=== PATIENT | male | born 1940 | race Caucasian/White ===

== ENCOUNTER → 2016-11-26 | Outpatient (REF) | payer MEDICARE, BC ==
[~2016-11-26] MED LIST: BISO10TA42 PO; CART120C PO; CARV25TA PO; CEFT500T PO; COZA100T2 PO; FLON0.05; JANU100T PO; LASI80TA PO; LOSA100T PO; MAG400TA PO; METF1000 PO; MILK2400 PO; SPIRIVA INH; SYMB80AE IN; TUSSSUS2 PO; TYLE325T5 PO; XARE20TA PO; ZITHTAB PO
[2016-11-26 12:21] LABS: MEAN CORPUSCULAR HEMOGLOBIN 32.6 pg (27.0-33.0); MEAN CORPUSCULAR HGB CONC 33.9 g/dl (32.0-36.5); MEAN CORPUSCULAR VOLUME 96.4 fl (80.0-96.0); RED CELL DISTRIBUTION WIDTH 13.2 % (11.5-14.5); WHITE BLOOD COUNT 7.4 K/mm3 (4.0-10.0)
[2016-11-26 12:28] LABS: ALBUMIN 3.9 GM/DL (3.2-5.2); ALKALINE PHOSPHATASE 87 U/L (45-117); ALT/SGPT 48 U/L (12-78); ANION GAP 9 MEQ/L (8-16); AST/SGOT 28 U/L (15-37); BILIRUBIN,TOTAL 0.9 MG/DL (0.2-1.0); BLOOD UREA NITROGEN 24 MG/DL (7-18); CALCIUM LEVEL 8.8 MG/DL (8.8-10.2); CARBON DIOXIDE LEVEL 28 MEQ/L (21-32); CHLORIDE LEVEL 106 MEQ/L (98-107); CHOLESTEROL LEVEL 139 MG/DL (<200); CREATININE FOR GFR 1.24 MG/DL (0.70-1.30); GLOMERULAR FILTRATION RATE > 60.0 (>42); GLUCOSE, FASTING 136 MG/DL (83-110); POTASSIUM SERUM 4.4 MEQ/L (3.5-5.1); SODIUM LEVEL 143 MEQ/L (136-145); TOTAL PROTEIN 6.9 GM/DL (6.4-8.2); TRIGLYCERIDES LEVEL 81 MG/DL (<150)
== END ==
LOC: M SFHCPLAZ 07:33
PROVIDERS: ATTEND Internal Medicine
DX: D64.9 Anemia, unspecified (principal); I10 Essential (primary) hypertension; E78.00 Pure hypercholesterolemia, unspecified

== ENCOUNTER → 2017-06-02 | Outpatient (REF) | payer MEDICARE, BC ==
[2017-06-02 12:09] LABS: ALBUMIN/GLOBULIN RATIO 1.21 (1.00-1.93); ALKALINE PHOSPHATASE 93 U/L (45-117); ALT/SGPT 30 U/L (12-78); ANION GAP 9 MEQ/L (8-16); AST/SGOT 16 U/L (15-37); BILIRUBIN,TOTAL 0.8 MG/DL (0.2-1.0); BLOOD UREA NITROGEN 21 MG/DL (7-18); CALCIUM LEVEL 9.2 MG/DL (8.8-10.2); CARBON DIOXIDE LEVEL 31 MEQ/L (21-32); CHLORIDE LEVEL 103 MEQ/L (98-107); GLOMERULAR FILTRATION RATE > 60.0 (>42); GLUCOSE, FASTING 127 MG/DL (83-110); SODIUM LEVEL 143 MEQ/L (136-145); TOTAL PROTEIN 7.3 GM/DL (6.4-8.2); URIC ACID 7.6 MG/DL (3.5-7.2)
[2017-06-02 12:35] LABS: MEAN CORPUSCULAR HEMOGLOBIN 33.8 pg (27.0-33.0); MEAN CORPUSCULAR HGB CONC 34.5 g/dl (32.0-36.5); MEAN CORPUSCULAR VOLUME 97.8 fl (80.0-96.0); WHITE BLOOD COUNT 6.2 K/mm3 (4.0-10.0)
== END ==
LOC: M SFHCPLAZ 07:25
PROVIDERS: ATTEND Internal Medicine
DX: D64.9 Anemia, unspecified (principal); I10 Essential (primary) hypertension; E11.40 Type 2 diabetes mellitus with diabetic neuropathy, unspecified; M10.9 Gout, unspecified

== ENCOUNTER → 2017-12-01 | Outpatient (REF) | payer MEDICARE, BC ==
[2017-12-01 11:47] LABS: HEMATOCRIT 37.5 % (42.0-52.0); HEMOGLOBIN 12.7 g/dl (14.0-18.0); MEAN CORPUSCULAR HGB CONC 33.9 g/dl (32.0-36.5); MEAN CORPUSCULAR VOLUME 94.5 fl (80.0-96.0); PLATELET COUNT, AUTOMATED 251 10^3/uL (150-450); RED BLOOD COUNT 3.97 10^6/uL (4.30-6.10); RED CELL DISTRIBUTION WIDTH 13.3 % (11.5-14.5)
[2017-12-01 12:29] LABS: ALBUMIN/GLOBULIN RATIO 1.21 (1.00-1.93); ALKALINE PHOSPHATASE 86 U/L (45-117); ALT/SGPT 30 U/L (12-78); ANION GAP 9 MEQ/L (8-16); AST/SGOT 20 U/L (7-37); BLOOD UREA NITROGEN 27 MG/DL (7-18); CARBON DIOXIDE LEVEL 29 MEQ/L (21-32); CHLORIDE LEVEL 103 MEQ/L (98-107); CHOLESTEROL LEVEL 149 MG/DL (<200); CHOLESTEROL RISK RATIO 4.382 (<5); CREATININE FOR GFR 1.15 MG/DL (0.70-1.30); GLOMERULAR FILTRATION RATE > 60.0 (>42); GLUCOSE, FASTING 145 MG/DL (70-100); HDL CHOLESTEROL 34 MG/DL (>40); LDL CHOLESTEROL 99.2 MG/DL (<100); MAGNESIUM LEVEL 2.5 MG/DL (1.8-2.4); NON-HDL-C 115 MG/DL; POTASSIUM SERUM 4.4 MEQ/L (3.5-5.1); SODIUM LEVEL 141 MEQ/L (136-145); TOTAL PROTEIN 7.3 GM/DL (6.4-8.2); TRIGLYCERIDES LEVEL 79 MG/DL (<150); URIC ACID 7.7 MG/DL (3.5-7.2)
[2017-12-01 12:38] LABS: ESTIMATED AVERAGE GLUCOSE 180 MG/DL (60-110); HEMOGLOBIN A1c 7.9 %
[2017-12-01 16:35] LABS: MALB URINE SIEMENS 78.7 MG/L; MAU/CREAT RATIO 45.2 MCG/MG (0.0-30.0)
== END ==
LOC: M SFHCPLAZ 07:44
DX: D64.9 Anemia, unspecified (principal); I10 Essential (primary) hypertension; E11.40 Type 2 diabetes mellitus with diabetic neuropathy, unspecified; E78.00 Pure hypercholesterolemia, unspecified; M10.9 Gout, unspecified; I48.2 Chronic atrial fibrillation
CPT/HCPCS: 83735

== ENCOUNTER 2018-03-24 10:45 | Emergency (ER) | payer OTHER, MEDICARE, BC ==
[2018-03-24] MEDS: ACETAMINOPHEN 325 MG TAB PO (11:44)
[2018-03-24] MEDS: ADACEL/BOOSTRIX VACCINE (DIPHTH/PERTUSS/ACELL/TETANUS)0.5ML SYR (90715) IM (11:46)
== END 2018-03-24 14:15 | disposition home or self-care (01) ==
LOC: M ED 10:45
DX: S82.832A Other fracture of upper and lower end of left fibula, initial encounter for closed fracture (principal); X50.9XXA Other and unspecified overexertion or strenuous movements or postures, initial encounter; Y92.59 Other trade areas as the place of occurrence of the external cause; Y99.0 Civilian activity done for income or pay; M17.12 Unilateral primary osteoarthritis, left knee; E11.9 Type 2 diabetes mellitus without complications; E78.70 Disorder of bile acid and cholesterol metabolism, unspecified; Z79.01 Long term (current) use of anticoagulants; Z79.899 Other long term (current) drug therapy
CPT/HCPCS: 90715

== ENCOUNTER → 2018-06-10 | Outpatient (CLI) | payer OTHER, MEDICARE, BC ==
[2018-06-10 14:29] LABS: ALBUMIN 4.2 GM/DL (3.2-5.2); ALBUMIN/GLOBULIN RATIO 1.27 (1.00-1.93); ALKALINE PHOSPHATASE 103 U/L (45-117); ALT/SGPT 25 U/L (12-78); ANION GAP 8 MEQ/L (8-16); AST/SGOT 17 U/L (7-37); BILIRUBIN,TOTAL 0.6 MG/DL (0.2-1.0); BLOOD UREA NITROGEN 16 MG/DL (7-18); CALCIUM LEVEL 8.6 MG/DL (8.8-10.2); CARBON DIOXIDE LEVEL 28 MEQ/L (21-32); CHLORIDE LEVEL 106 MEQ/L (98-107); CREATININE FOR GFR 1.05 MG/DL (0.70-1.30); GLOMERULAR FILTRATION RATE > 60.0 (>42); GLUCOSE, FASTING 136 MG/DL (70-100); MAGNESIUM LEVEL 2.4 MG/DL (1.8-2.4); POTASSIUM SERUM 4.8 MEQ/L (3.5-5.1); SODIUM LEVEL 142 MEQ/L (136-145); TOTAL PROTEIN 7.5 GM/DL (6.4-8.2)
[2018-06-10 14:44] LABS: ESTIMATED AVERAGE GLUCOSE 137 MG/DL (60-110); HEMOGLOBIN A1c 6.4 %
[2018-06-10 14:52] LABS: MALB URINE SIEMENS 37.1 MG/L
[2018-06-10 14:58] LABS: MAU/CREAT RATIO 22.6 MCG/MG (0.0-30.0)
== END ==
LOC: M WUC 08:03
DX: M10.9 Gout, unspecified (principal); E11.40 Type 2 diabetes mellitus with diabetic neuropathy, unspecified
CPT/HCPCS: 83735

== ENCOUNTER → 2018-12-13 | Outpatient (REF) | payer MEDICARE, BC ==
[~2018-12-13] MED LIST changes: +FISH1000 PO; +GARL10CA2 PO; +GLUC500C5 PO; +MULTCAP PO; +NORCOTAB PO
[2018-12-13 10:15] LABS: HEMATOCRIT 35.7 % (42.0-52.0); HEMOGLOBIN 12.3 g/dl (13.5-17.5); MEAN CORPUSCULAR HEMOGLOBIN 33.2 pg (27.0-33.0); MEAN CORPUSCULAR HGB CONC 34.5 g/dl (32.0-36.5); MEAN CORPUSCULAR VOLUME 96.2 fl (80.0-96.0); PLATELET COUNT, AUTOMATED 252 10^3/uL (150-450); RED BLOOD COUNT 3.71 10^6/uL (4.30-6.10); WHITE BLOOD COUNT 8.8 10^3/uL (4.0-10.0)
[2018-12-13 10:23] LABS: ALBUMIN 3.8 GM/DL (3.2-5.2); ALT/SGPT 26 U/L (12-78); BILIRUBIN,TOTAL 0.6 MG/DL (0.2-1.0); BLOOD UREA NITROGEN 24 MG/DL (7-18); CALCIUM LEVEL 8.9 MG/DL (8.8-10.2); CARBON DIOXIDE LEVEL 28 MEQ/L (21-32); CHLORIDE LEVEL 103 MEQ/L (98-107); CHOLESTEROL LEVEL 134 MG/DL (<200); GLOMERULAR FILTRATION RATE > 60.0 (>42); GLUCOSE, FASTING 138 MG/DL (70-100); HDL CHOLESTEROL 25 MG/DL (>40); LDL CHOLESTEROL 84 MG/DL (<100); MAGNESIUM LEVEL 2.1 MG/DL (1.8-2.4); NON-HDL-C 109 MG/DL; POTASSIUM SERUM 4.4 MEQ/L (3.5-5.1); SODIUM LEVEL 138 MEQ/L (136-145); TOTAL PROTEIN 6.7 GM/DL (6.4-8.2); TRIGLYCERIDES LEVEL 124 MG/DL (<150)
[2018-12-13 10:34] LABS: HEMOGLOBIN A1c 6.9 %
[2018-12-13 10:49] LABS: MALB URINE SIEMENS 43.3 MG/L; MAU/CREAT RATIO 26.4 MCG/MG (0.0-30.0)
== END ==
LOC: M SFHCPLAZ 07:42
PROVIDERS: ATTEND Internal Medicine
DX: D64.9 Anemia, unspecified (principal); I11.9 Hypertensive heart disease without heart failure; E11.40 Type 2 diabetes mellitus with diabetic neuropathy, unspecified; E78.00 Pure hypercholesterolemia, unspecified

== ENCOUNTER → 2019-02-02 | Outpatient (CLI) | payer MEDICARE, BC ==
[~2019-02-02] MED LIST changes: +HYDR-3715 PO; +ISOVUE-370 76% 100ML VIAL (Q9967) As Ordered ONE; -NORCOTAB PO
--- NOTE | 2019-02-02 17:02 | REP ---
CT CHEST WITH CONTRAST: 02/02/2019. Clinical history: Polyneuritis, weight loss. Comparison: 09/24/2013 Technique: The patient received bolus of 100 ml Isovue 370 scanning through the chest with coronal and sagittal reconstructions. Findings. Findings: The lung uribe are well inflated. Previous effusions and basilar atelectatic changes are resolved. Some mild cylindrical bronchiectatic changes are noted in both lower lung zones. No pleural thickening, calcified pleural plaque, pleural-based mass, pulmonary nodule, acute infiltrate or other acute finding. Heart is not enlarged. The left atrium is mildly prominent but there is no pericardial thickening or effusion. There is calcification of the aortic root ascending, arch and descending aorta without aneurysm or dissection. Central pulmonary arteries in the mediastinum are unremarkable. The visualized lobar arteries are unremarkable. There is no pathologic sized mediastinal or hilar adenopathy and no axillary or supraclavicular mass evident. The bone windows show sternum, manubrium, visualized portions of the medial clavicles intact. Shoulder joint arthritis bilaterally right greater than left. The visualized small portions of the humeral heads and scapula without fracture or destructive lesion. Visualized ribs are intact. There are diffuse marginal osteophytes throughout the thoracic spine without compression deformity or destructive lesion. Upper abdominal structures will be described in the CT abdomen report. Impression: 1. Mild cylindrical bronchiectatic changes lower chest, but no parenchymal lung mass, nodule, infiltrate, atelectasis or mass. 2. Left atrial enlargement without gross cardiomegaly, vascular redistribution, mediastinal or hilar mass, aortic aneurysm or dissection. Central pulmonary as without filling defects. 3. No acute bony findings. No adenopathy hiatal hernia or other acute finding. Electronically Signed by Willie Mariano MD 02/02/2019 05:19 P
--- NOTE | 2019-02-02 17:57 | REP ---
CT abdomen and pelvis with IV but without oral contrast: History: Polyneuropathy and weight loss. No comparison abdominal imaging. CT contrast dose: 100 ml of intravenous Isovue [address] findings: The liver and the spleen are normal in size homogeneous in texture. The gallbladder is surgically absent. No adrenal lesion is seen. There is no pancreatic abnormality seen. Vascular calcification is noted. There is a tiny accessory splenule. A 1 cm cyst is seen in the right lobe of the liver. There is no evidence of hydronephrosis on either side. A small cyst is seen in the upper pole left kidney. Vascular calcification is noted in the renal arteries bilaterally. Calcific plaquing is seen at the origins of the visceral arteries. The celiac, superior mesenteric, and inferior mesenteric artery are patent. Prostate is enlarged and demonstrates some dystrophic calcification. The bladder base is slightly elevated. Bladder meyer are mildly thickened. No bladder mass lesion is seen. No abdominal wall defect is seen. There is moderate left colonic diverticulosis without CT evidence of diverticulitis. No colonic mass lesion is seen. A normal appendix is noted retrocecal. Bone window settings demonstrate degenerative spondylosis changes in the lumbar spine. No acute bony abnormality. Impression: Moderate left colonic diverticulosis. Extensive vascular calcification. Post cholecystectomy. Prostate enlargement. Electronically Signed by Ronald Dorman MD 02/02/2019 06:35 P
== END ==
LOC: M RAD 08:18
PROVIDERS: ATTEND Internal Medicine
DX: G62.9 Polyneuropathy, unspecified (principal); R63.4 Abnormal weight loss; K57.30 Diverticulosis of large intestine without perforation or abscess without bleeding; I70.209 Unspecified atherosclerosis of native arteries of extremities, unspecified extremity; N40.1 Benign prostatic hyperplasia with lower urinary tract symptoms; Z90.49 Acquired absence of other specified parts of digestive tract
CPT/HCPCS: 71260; 74177; Q9967

== ENCOUNTER → 2019-02-09 | Outpatient (REF) | payer MEDICARE, BC ==
[~2019-02-09] MED LIST changes: -ISOVUE-370 76% 100ML VIAL (Q9967) As Ordered ONE
== END ==
LOC: M SFHCPLAZ 15:42
PROVIDERS: ATTEND Family Medicine
DX: S91.309A Unspecified open wound, unspecified foot, initial encounter (principal)
CPT/HCPCS: 87070; 87077; 87186; 87205; G0463

== ENCOUNTER → 2019-02-13 | Outpatient (REF) | payer MEDICARE, BC ==
[2019-02-13 14:10] LABS: TOTAL PROTEIN 7.3 GM/DL (6.4-8.2)
[2019-02-13 14:13] LABS: FOLATE > 24.0 NG/ML; VITAMIN B12 LEVEL 541 PG/ML
[2019-02-15 11:12] LABS: ALBUMIN 4.15 GM/DL (3.29-5.55); ALBUMIN % 56.9 % (55.8-66.1); ALPHA-1-GLOBULIN % 4.7 % (2.9-4.9); ALPHA-1-GLOBULINS 0.34 GM/DL (0.17-0.41); ALPHA-2-GLOBULINS 0.93 GM/DL (0.42-0.99); ALPHA-2-GLOBULINS % 12.8 % (7.1-11.8); BETA-1-GLOBULINS 0.46 GM/DL (0.28-0.60); BETA-1-GLOBULINS % 6.3 % (4.7-7.2); BETA-2-GLOBULINS 0.43 GM/DL (0.19-0.55); BETA-2-GLOBULINS % 5.9 % (3.2-6.5); GAMMA GLOBULIN % 13.4 % (11.1-18.8); GAMMA GLOBULINS 0.98 GM/DL (0.65-1.58)
[2019-02-18 17:27] LABS: CERULOPLASMIN 31.7 mg/dL (16.0-31.0); VITAMIN B1 LEVEL WHOLE BLOOD 145.2 nmol/L (66.5-200.0); VITAMIN B6,PYRIDOXAL PHOSPHATE 57.6 ug/L (5.3-46.7); VITAMIN E(ALPHA TOCOPHEROL) 12.9 mg/L (9.0-29.0); VITAMIN E(GAMMA TOCOPHEROL) 0.8 mg/L (0.5-4.9)
== END ==
LOC: M LABNEURO 09:27
PROVIDERS: ATTEND Psychiatry & Neurology Neurology
DX: G62.9 Polyneuropathy, unspecified (principal); E53.8 Deficiency of other specified B group vitamins; E51.9 Thiamine deficiency, unspecified; E83.01 Wilson's disease; R63.0 Anorexia
CPT/HCPCS: 36415; 82390; 82525; 82607; 82746; 84165; 84207; 84425; 84446; G0463

== ENCOUNTER → 2019-02-26 | Outpatient (REF) | payer MEDICARE, BC | LOC: M LAB REF 17:11 | PROVIDERS: ATTEND Podiatrist | DX: M79.672 Pain in left foot (principal); L03.032 Cellulitis of left toe ==

== ENCOUNTER → 2019-03-27 | Outpatient (CLI) | payer MEDICARE, BC ==
[~2019-03-27] MED LIST changes: +BISO10TA7 PO; +DILT120C78 PO; +FLON1SPR NARES; +FURO80TA2 PO; +GLUC500T53 PO; +LISI10TA4 PO; +MAGN400T2 PO; +METF-877 PO; +PERC5TAB12 PO; +QC A650T3 PO; +SM G150T PO
--- NOTE | 2019-03-27 12:49 | ECGEPIP ---
[facility] Test Date: 2019-03-27 Pat Name: CAIO GRACE Department: Room: - Gender: Male Dye Worker: [facility] : 1940 Requested By: Trung Reid @ [facility] Order Number: [id number] Reading MD: Mari Vizcarra Measurements Intervals [place] Rate: 65 P: LA: -1 QRS: 44 QRSD: 108 T: 33 QT: 395 QTc: 411 Interpretive Statements ATRIAL FIBRILLATION SLOW WITH VENTRICULAR PREMATURE COMPLEXES LOW VOLT LIMB LEADS NONSPECIFIC STTWA NO PRIOR Electronically Signed on 03-27-2019 12:48:57 EDT by Mari Vizcarra
[2019-03-27 13:23] LABS: BLOOD UREA NITROGEN 21 MG/DL (7-18); CALCIUM LEVEL 9.8 MG/DL (8.8-10.2); CARBON DIOXIDE LEVEL 32 MEQ/L (21-32); CHLORIDE LEVEL 106 MEQ/L (98-107); CREATININE FOR GFR 1.22 MG/DL (0.70-1.30); GLOMERULAR FILTRATION RATE > 60.0 (>42); GLUCOSE, FASTING 111 MG/DL (70-100); POTASSIUM SERUM 4.3 MEQ/L (3.5-5.1); SODIUM LEVEL 145 MEQ/L (136-145)
== END ==
LOC: M LAB 12:10
PROVIDERS: ATTEND Orthopaedic Surgery
DX: Z01.818 Encounter for other preprocedural examination (principal); M48.02 Spinal stenosis, cervical region; M47.892 Other spondylosis, cervical region

== ENCOUNTER 2019-04-20 05:50 | Inpatient (IN) | payer MEDICARE, BC ==
--- NOTE | 2019-04-19 09:29 | HPE ---
DATE OF SERVICE: 04/13/2019 DATE OF ANTICIPATED ADMISSION: 04/20/2019 ATTENDING PHYSICIAN: Dr. Trung Chin. CHIEF COMPLAINT: Cervical spine pain and no radiculopathy. HISTORY: This is a pleasant 78-year-old male patient with history of progressively worsening cervical spine pain and neuropathic symptoms. He has failed to improve with conservative management and has been consented for an anterior cervical decompression and fusion of C4 and C5 with Dr. Chin. ALLERGIES: LISINOPRIL. CURRENT MEDICATIONS: - fish oil - garlic oil - Centrum Silver - Xarelto 20 mg - Glucophage 500 mg two tablets with evening meal - Flonase - bisoprolol 10 mg one by mouth twice a day - Lasix 80 mg one by mouth daily - magnesium oxide - Januvia 100 mg one by mouth daily - losartan 100 mg one by mouth daily - Cartia 120 mg one by mouth daily. PAST MEDICAL HISTORY: 1. Hypertension. 2. Type 2 diabetes with diabetic neuropathy. 3. Chronic atrial fibrillation. 4. Chronic diastolic heart failure. 5. Hypercholesterolemia. 6. Gout. 7. Vascular disease. 8. Anemia. 9. History of methicillin-resistant Staphylococcus aureus (MRSA). PAST SURGICAL HISTORY: 1. Vocal cord polyp removal. 2. Cholecystectomy. 3. Right shoulder arthroscopy. 4. Blepharoplasty, bilateral FAMILY HISTORY: Father, colon cancer. Mother . SOCIAL HISTORY: He is a former smoker and does not use illicit drugs. REVIEW OF SYSTEMS: Denies fever, chills, chest pain, shortness breath, nausea, vomiting, diarrhea, recent upper respiratory or urinary tract infection symptoms. On physical exam, he is a well-developed, well-nourished adult male in no apparent distress. He ambulates into clinic today with a non-antalgic gait. No assistive devices. Examination of the cervical spine reveals intact range of motion. The overlying surgical site shows no rashes. Skin is intact. S1 and S2 were auscultated. Lungs were clear to auscultation bilaterally with no wheezes, rales, rhonchi. Abdomen: Soft, nontender. Bilateral upper extremities with brisk capillary refill, 5/5 strength. LABORATORY DATA: Hemoglobin 12.2. BUN 21. IMPRESSION: Cervical spine pain and radiculopathy. PLAN: Consented for anterior cervical decompression and fusion of C4 and C5 by Dr. Chin
--- NOTE | 2019-04-19 14:27 | HPE ---
DATE OF ADMISSION: 04/20/2019 ATTENDING PHYSICIAN: Dr. Trung Chin CHIEF COMPLAINT: Cervical spine pain and bilateral upper extremity radiculopathy. HISTORY: This is a pleasant 78-year-old male patient with progressively worsening neck pain and radiculopathy symptoms who has failed to improve with conservative treatment. He has consented for a right sided anterior cervical decompression and partial corpectomy at C4 and C4-5 fusion with the use of donor bone and metal hardware with Dr. Trung Chin. ALLERGIES: LISINOPRIL. CURRENT MEDICATIONS: Fish oil, garlic oil, Centrum Silver, Xarelto, Glucophage, Flonase, bisoprolol 10 mg, Lasix 80 mg, magnesium oxide, Januvia 100 mg, losartan 100 mg, Cartia XT 120 mg. PAST MEDICAL HISTORY: Hypertension, type 2 diabetes with diabetic neuropathy, chronic atrial fibrillation, chronic diastolic heart failure, hypercholesterolemia, benign cardiac murmur, gout, neuropathy, anemia, history of methicillin-resistant Staphylococcus aureus (MRSA) infection. PAST SURGICAL HISTORY: Vocal cord polyp removal, cholecystectomy, right shoulder arthroscopy, upper lid blepharoplasties, colonoscopies. FAMILY HISTORY: Father - cancer. Mother - . REVIEW OF SYSTEMS: Denies fever, chills, chest pain, shortness of breath, nausea, vomiting, diarrhea. PHYSICAL EXAMINATION: He is well-developed, well-nourished adult male in no apparent distress. He ambulates into clinic today with a non antalgic gait and no assistive devices. He is normocephalic, atraumatic. Neck is supple and nontender with no lymphadenopathy or jugular venous distention (JVD). Overlying skin is intact. He has an intact neurovascular status in the bilateral upper extremities. Abdomen is soft and nontender. S1 and S2 were auscultated. Chest was clear to auscultation bilaterally with no wheezes, rales, rhonchi. The patient's medical optimization was completed by Dr. Pastor and was available today for review on chart. IMPRESSION: Cervical stenosis with myelopathy. PLAN: Consented for anterior cervical decompression, partial corpectomy, C4-5 fusion, C4-5 use of donor bone and metal hardware.
[~2019-04-20] VITALS: Ht 182.9 cm; Wt 96.6 kg
[2019-04-20] VITALS (7 sets, daily range): BP systolic 110–142; BP diastolic 63–81
[~2019-04-20 05:50] MED LIST changes: -PERC5TAB12 PO
[2019-04-20] MEDS ORDERED: LR 1,000 ML IV ONE (06:00)
[2019-04-20] MEDS ORDERED: VANCOMYCIN HCL 1,000 MG, VIAL MATE ADAPTER 1 EACH in D5W 250 ML IV ONE ×2 (06:00→21:00)
[2019-04-20] MEDS ORDERED: PERCOCET 5MG/325MG TAB PO ONE (06:00)
[2019-04-20] MEDS ORDERED: methylPREDNISolone INJ 125 MG/2 ML VIAL (J2930) IV ONE (06:00)
[2019-04-20] MEDS ORDERED: GABAPENTIN 300 MG CAP PO ONE (06:00)
[2019-04-20] MEDS ORDERED: LIDOCAINE 1% MDV 20ML VIAL SQ PRN (06:00)
[2019-04-20] MEDS ORDERED: THROMBIN SOLN 20,000 UNITS KIT As Ordered ONE (06:45)
[2019-04-20] MEDS ORDERED: methylPREDNISolone 500 MG VIAL (J2930) As Ordered ONE (06:45)
[2019-04-20] MEDS ORDERED: LIDOCAINE W/EPINEPHRINE 1% 20ML VIAL As Ordered ONE (06:45)
[2019-04-20] MEDS ORDERED: BACITRACIN PWD 50,000 UNITS VIAL As Ordered ONE (06:46)
[2019-04-20] MEDS ORDERED: dexameTHASONE 4 MG/ML 1ML VIAL (J1100) As Ordered ONE (07:04)
[2019-04-20] MEDS ORDERED: ROCURONIUM BROMIDE 50 MG/5 ML VIAL As Ordered ONE (07:04)
[2019-04-20] MEDS ORDERED: ONDANSETRON 4MG/2ML VIAL (J2405) As Ordered ONE (07:04)
[2019-04-20] MEDS ORDERED: PROPOFOL 200 MG/20 ML VIAL As Ordered ONE (07:04)
[2019-04-20] MEDS ORDERED: LIDOCAINE 2% INJ 100 MG/5 ML SDV (FOR ANES.) As Ordered ONE (07:04)
[2019-04-20] MEDS ORDERED: MIDAZOLAM INJ 2 MG/2 ML VIAL (J2250) As Ordered ONE (07:05)
[2019-04-20] MEDS ORDERED: fentaNYL 250 MCG/5 ML INJECTION (J3010) As Ordered ONE (07:05)
[2019-04-20] MEDS ORDERED: ACETAMINOPHEN 1000MG 100ML IV BTL (OFIRMEV) (J0131 PER 10MG) As Ordered ONE (07:11)
[2019-04-20] MEDS ORDERED: GLYCOPYRROLATE INJ 0.2 MG/ML 2 ML VIAL As Ordered ONE (08:18)
[2019-04-20] MEDS ORDERED: LISINOPRIL 10 MG TAB PO SCH (09:00)
[2019-04-20] MEDS: METAMUCIL (PSYLLIUM) PACKET PO SCH (09:00)
[2019-04-20] MEDS ORDERED: fentaNYL 100 MCG/2 ML INJECTION (J3010) As Ordered ONE (09:15)
[2019-04-20] MEDS ORDERED: HYDROmorphone HCL 2 MG/ML 1ML VIAL (J1170) As Ordered ONE (10:04)
[2019-04-20] MEDS ORDERED: SUGAMMADEX SODIUM 500 MG/5 ML VIAL (BRIDION) As Ordered ONE (10:13)
--- NOTE | 2019-04-20 10:31 | REP ---
Clinical: Intraoperative evaluation. Technique: Two portable intraoperative cross-table lateral views of the cervical spine. Findings: Final image demonstrates the patient to be status post anterior fixation at the C4-5 level with satisfactory alignment. Impression: Status post anterior cervical fixation. Electronically Signed by Regis Wong MD 04/20/2019 10:22 A
[2019-04-20] MEDS ORDERED: PERCOCET 5MG/325MG TAB PO PRN ×3 (11:00)
[2019-04-20] MEDS ORDERED: HYDROMORPHONE HCL 0.5 MG/ 0.5 ML SYRINGE (J1170 PER 1) IV PRN ×3 (11:00)
[2019-04-20] MEDS ORDERED: ONDANSETRON 4MG/2ML VIAL (J2405) IV PRN ×2 (11:00)
[2019-04-20] MEDS ORDERED: LR 1,000 ML IV SCH (11:00)
[2019-04-20] MEDS ORDERED: fentaNYL 100 MCG/2 ML INJECTION (J3010) IV PRN (11:00)
[2019-04-20] MEDS: D5W/LR 1,000 ML IV SCH ×2 (11:00→20:58)
[2019-04-20] MEDS ORDERED: GLUCAGON FOR INJ 1 MG VIAL (J1610) SC PRN (12:45)
[2019-04-20] MEDS ORDERED: DEXTROSE 50% 50 ML SYRINGE IV PRN (12:45)
[2019-04-20] MEDS ORDERED: GLUCOSE 4 GM CHEW TABLET PO PRN (12:45)
[2019-04-20 13:14] LABS: BASO % 0.5 % (0.0-1.0); EOS % 0.1 % (0.0-3.0); HEMATOCRIT 33.6 % (42.0-52.0); HEMOGLOBIN 11.4 g/dl (13.5-17.5); LYMPH # 1.1 10^3/uL (1.5-4.5); LYMPH % 12.7 % (24.0-44.0); MEAN CORPUSCULAR HEMOGLOBIN 32.4 pg (27.0-33.0); MEAN CORPUSCULAR HGB CONC 33.9 g/dl (32.0-36.5); MEAN CORPUSCULAR VOLUME 95.5 fl (80.0-96.0); MONO # 0.2 10^3/uL (0.0-0.8); MONO % 1.7 % (0.0-5.0); NEUTROPHILS # 7.4 10^3/uL (1.8-7.7); NEUTROPHILS % 84.7 % (36.0-66.0); PLATELET COUNT, AUTOMATED 245 10^3/uL (150-450); RED BLOOD COUNT 3.52 10^6/uL (4.30-6.10); WHITE BLOOD COUNT 8.8 10^3/uL (4.0-10.0)
[2019-04-20 13:31] LABS: HEMOGLOBIN A1c 6.6 %
[2019-04-20 13:56] LABS: CALCIUM LEVEL 9.2 MG/DL (8.8-10.2); CREATININE FOR GFR 1.27 MG/DL (0.70-1.30); GLOMERULAR FILTRATION RATE 58.5 (>42); MAGNESIUM LEVEL 2.3 MG/DL (1.8-2.4); POTASSIUM SERUM 4.5 MEQ/L (3.5-5.1); THYROID STIMULATING HORMONE 1.61 uIU/ML (0.358-3.740)
--- NOTE | 2019-04-20 14:18 | RO ---
DATE OF SURGERY: 04/20/2019 PREOPERATIVE DIAGNOSES: Cervical spinal stenosis with myelopathy secondary to degenerative changes at the C4-5 level. POSTOPERATIVE DIAGNOSES: Cervical spinal stenosis with myelopathy secondary to degenerative changes at the C4-5 level. PROCEDURE PERFORMED: Partial cervical corpectomy C5, including debridement of approximately 50% of the C5 vertebral body uncinate processes large anterior osteophyte and decompression of the stenotic area impressing on the thecal sac, anterior cervical fusion at C4-5, application of anterior cervical instrumentation at C4-5, structural allograft for spine surgery C4-5. SURGEON: Dr. Trung Chin ASSISTING: Jovan Sidhu, physician teaching assistant. ANESTHESIA: General. ESTIMATED BLOOD LOSS: Less than 50 mL, replaced with crystalloid. No complications. COMPONENTS USED: Include, a 14 mm anterior cervical [place] plate, 15 mm x 4 mm screws times four, a 7 x 9 mm VG2 structural allograft. INDICATIONS: Cervical myelopathy with severe spinal stenosis appreciable on MRI. MRI, CT scan, and plain x-ray evidence of traumatic degenerative changes and osteophyte formation at C4-5, and complete disc space collapse. DESCRIPTION OF OPERATION: Operative course: The consent reviewed in detail with the patient including a rodolfo discussion of the pathology involved, the procedure proposed, alternatives including doing nothing or doing a different procedure, risks, including but not limited to, pain, failure, bleeding, blood loss, nerve injury, paralysis, incomplete relief, , and other complications. The patient agrees to proceed with surgery. Identified in the holding area, site, side verified. Once anesthesia was administered, he was positioned in the usual fashion for exposure of the cervical spine for partial corpectomy. Head halter traction 7 pounds was utilized. Shoulders were taped at the side. He was sterilely prepped and draped in the usual reaction. Once I and the angiography technologist were comfortable with the patient's positioning, we began the procedure. The patient received preoperative antibiotics as well as steroid prior to start of the case. Next, incision was outlined with a marking pen infiltrated with 1% lidocaine with epinephrine and made with a 10 blade knife by myself. I utilized 3.5 loupe magnification. The dissection was continued to the surface of platysma muscle, which was elevated and exposed. Platysma was then elevated and divided using bipolar cautery and tenotomy scissors. This allowed exposure of the sternocleidomastoid. There was significant fibrotic findings and the cervical spine. We identified the omohyoid muscle and continued dissection superior to that and medial to the sternocleidomastoid. The carotid sheath was identified and protected. The dissection continued to the anterior aspect of the vertebral column. The prevertebral fascia was identified. The large 15 mm anterior osteophyte at 4-5 was palpated, and I very carefully cleared the soft tissue from the anterior aspect of the osteophyte using blunt probes. Mr. Sidhu utilized S retractors to help with the exposure. I placed a bayonet spinal needle through the osteophyte complex and obtained a cross-table lateral x-ray to verify our location. Next, we then debrided anterior osteophyte using Larsen-Petersens, and then I placed distraction pins at C4 and C5 and distracted across the interspace. We placed the Shadow-Line retractor protecting the soft tissue. Next, I utilized an oval migue to remove inferior vertebral corpus of C4 as well as the superior 50% of the C5 corpus extending posteriorly to the uncinate processes and posterior longitudinal ligament. Partial corpectomy was necessary because of the complete collapse of the disc space and traumatic degenerative findings at C4-5 in this 78-year-old gentleman. There was no appreciable disc material. Next, the segment was mobile, however. Next, curettes were utilized as well as the oval migue. Next, once the partial corpectomy was accomplished, I elevated the posterior longitudinal ligament using curved curettes, and I removed the posterior longitudinal ligament using #2 [place] carefully. Next, this effectively decompressed the thecal sac, which was directly visualized. Next, rasps through a size 8 x 10 rasp were utilized. I felt the sound for the 7 x 9 graft size, however, seemed to fit more appropriately to avoid any possibility of over-distraction. Next, once this was accomplished, irrigation was accomplished. We selected the 7 x 9 graft. The graft was tamped into place. Next, once this was accomplished, distraction pins were removed, holes were plugged with wax. I utilized the oval migue while Mr. Sidhu utilized the S retractors, and I further contoured the anterior vertebral corpus removing osteophyte formation to allow placement of the plate on the anterior vertebral bodies. I selected the size 14 plate and drilled and placed 15 mm x 4 mm screws. These were then locked into place. Next, irrigation was accomplished. The wound was inspected, and I appreciated no active bleeding. We irrigated with concentrated bacitracin solution. Final cross-table lateral x-ray was obtained to verify good plate and graft placement. Next, once this was accomplished and all retractors were removed, the wound was closed with interrupted stitch followed by Dermabond. Foster collar applied. Patient extubated, moved to the recovery room in good condition. Both myself and Mr. Sidhu were present and participated in the entirety of this case.
[2019-04-20] MEDS: FUROSEMIDE 80 MG TAB PO SCH (16:05)
--- NOTE | 2019-04-20 16:33 | CR.PDOC ---
General Date of Consultation: Apr 20, 2019 Referring Provider: Trung Chin MD Consultation REASON FOR CONSULTATION: medical management PROCEDURE: 04/20/19 right sided anterior cervical decompression and partial corpectomy at C4 and C4-5 fusion with the use of donor bone and metal hardware with Dr. Trung Chin. HISTORY OF PRESENTING ILLNESS: 78-year-old male patient with past medical history significant for Hypert ension, type 2 diabetes with diabetic neuropathy,chronic atrial fibrillation, chronic diastolic heart failure,hypercholesterolemia, benign cardiac murmur, gout, neuropathy, anemia, history of methicillin-resistant Staphylococcus aureus (MRSA) infection of left great toe admitted to the Orthopedic service s/p right sided anterior cervical decompression and partial corpectomy at C4 and C4-5 fusion with the use of donor bone and metal hardware with Dr. Trung Chin. Hospitalist was consulted for management of chronic medical problems. Pt c/o paresthesias in the left hand and fingers, but none on the right. ALLERGIES: LISINOPRIL. HOME MEDICATIONS: Fish oil, garlic oil, Centrum Silver, Xarelto, Glucophage,Flonase, bisoprolol 10 mg, Lasix 80 mg, magnesium oxide, Januvia 100 mg, losartan 100 mg, Cartia XT 120 mg. HOSPITAL MEDICATIONS: PLS SEE BELOW PAST MEDICAL HISTORY: Hypertension, type 2 diabetes with diabetic neuropathy,chronic atrial fibrillation, chronic diastolic heart umair lure,hypercholesterolemia, benign cardiac murmur, gout, neuropathy, anemia, history of methicillin-resistant Staphylococcus aureus (MRSA) infection of left great toe. PAST SURGICAL HISTORY: Vocal cord polyp removal, cholecystectomy, right shoulder arthroscopy, upper lid blepharoplasties, colonoscopies. SOCIAL HISTORY: smoked cigarettes, quit 10 yrs ago. retired [employer] supervisor, dog handler or trainer at [employer]. FAMILY HISTORY: Father - cancer. Mother - . REVIEW OF SYSTEMS: 12 points systems review negative aside from positive findings on HPI. PHYSICAL EXAMINATION: GEN: AAO x 3 cervical brace anicteric no jaundice. no accessory resp mm use. HEENT: post op cervical spine changes, unable to assess for jvd or cervical LAD due to cervical brace LUNGS: CTAB AEBE no wheezing or rales HEART: S1S2 Abdomen is soft and nontender nondistended. EXT: no edema, cyanosis or clubbing NEURO: paresthesias in the left hand. 5/5 technical writing lead/mgr b/l hands. gait not tested. LABORATORY DATA, IMAGING STUDIES, MICROBIOLOGY: REVIEWED, PLS SEE BELOW ASSESSMENT AND PLAN: 78-year-old male patient with past medical history significant for Hypertension, type 2 diabetes with diabetic neuropathy,chronic atrial fibrillation, chronic diastolic heart failure,hypercholesterolemia, benign cardiac murmur, gout, neuropathy, anemia, history of methicillin-resistant Staphylococcus aureus (MRSA ) infection of left great toe admitted to the Orthopedic service s/p right sided anterior cervical decompression and partial corpectomy at C4 and C4-5 fusion with the use of donor bone and metal hardware with Dr. Turng Chin. Hospitalist was consulted for management of chronic medical problems. Pt c/o paresthesias in the left hand and fingers, but none on the right. s/p right sided anterior cervical decompression and partial corpectomy at C4 and C4-5 fusion with the use of donor bone and metal hardware with Dr. Trung Chin. Hypertension, resumed on home meds with holding parameters monitor for hypotension type 2 diabetes with diabetic neuropathy, held oral hypoglycemics while admitted insulin while inpatient consistent carbs diet chronic atrial fibrillation, betablocker and anticoagulant while inpt at home dose chronic diastolic heart failure, resumed diuretic and losartan hypercholesterolemia, stable benign cardiac murmur, asymptomatic gout, chronic neuropathy, anemia, chronic history of methicillin-resistant Staphylococcus aureus (MRSA) infection recheck mrsa screen dvt prophylaxis: per ortho disposition:PT/OT consulted. Vital Signs/I&O Vital Signs Date Time Temp Pulse Resp B/P (MAP) Pulse Ox O2 Delivery O2 Flow Rate FiO2 04/20/19 12:00 18 04/20/19 11:40 97.2 57 151/74 (99) 99 2 Laboratory Data Labs 24H Laboratory Tests 2 04/20/19 06:55: Bedside Glucose (Misc Panel) 134H 04/20/19 12:56: Immature Granulocyte % (Auto) 0.3, White Blood Count 8.8, Red Blood Count 3.52L, Hemoglobin 11.4L, Hematocrit 33.6L, Mean Corpuscular Volume 95.5, Mean Corpuscular Hemoglobin 32.4, Mean Corpuscular Hemoglobin Concent 33.9, Red Cell Distribution Width 13.3, Platelet Count 245, Neutrophils (%) (Auto) 84.7H, Lymphocytes (%) (Auto) 12.7L, Monocytes (%) (Auto) 1.7, Eosinophils (%) (Auto) 0.1, Basophils (%) (Auto) 0.5, Neutrophils # (Auto) 7.4, Lymphocytes # (Auto) 1.1L, Monocytes # (Auto) 0.2, Eosinophils # (Auto) 0.0, Basophils # (Auto) 0.0, Nucleated Red Blood Cells % (auto) 0.0, Anion Gap 7L, Glomerular Filtration Rate 58.5, Estimated Mean Plasma Glucose 143H, Hemoglobin A1c 6.6, Blood Urea Nitrogen 17, Creatinine 1.27, Sodium Level 143, Potassium Level 4.5, Chloride Level 107, Carbon Dioxide Level 29, Calcium Level 9.2, Magnesium Level 2.3, Thyroid Stimulating Hormone (TSH) 1.610 CBC/BMP Laboratory Tests 04/20/19 12:56 Red Blood Count 3.52 L, Mean Corpuscular Volume 95.5, Mean Corpuscular Hemog lobin 32.4, Mean Corpuscular Hemoglobin Concent 33.9, Red Cell Distribution Width 13.3, Neutrophils (%) (Auto) 84.7 H, Lymphocytes (%) (Auto) 12.7 L, Monocytes (%) (Auto) 1.7, Eosinophils (%) (Auto) 0.1, Basophils (%) (Auto) 0.5, Neutrophils # (Auto) 7.4, Lymphocytes # (Auto) 1.1 L, Monocytes # (Auto) 0.2, Eosinophils # (Auto) 0.0, Basophils # (Auto) 0.0, Calcium Level 9.2 Allergies Coded Allergies: zolpidem (Verified Adverse Reaction, Intermediate, BECOMES BELLIGERENT AND MEAN, 04/20/19) Home Medications Scheduled Bisoprolol Fumarate (Bisoprolol Fumarate) 10 Mg Tablet, 10 MG PO BID, (Reported) Diltiazem HCl (Diltiazem 24Hr ER) 120 Mg Cap.er.24h, 120 MG PO DAILY for 30 Days, #30 (Reported) Fluticasone Propionate (Flonase Allergy Relief) 9.9 Ml [place].susp, 2 SPRAY NARES DAILY for 30 Days, #9.9 (Reported) Furosemide (Furosemide) 80 Mg Tablet, 80 MG PO DAILY for 30 Days, #30 (Reported) Garlic (Garlic) 1 Each Tablet, 150 MG PO DAILY, (Reported) Lisinopril (Lisinopril) 10 Mg Tablet, 10 MG PO DAILY for 30 Days, #30 (Reported) Losartan Potassium (Cozaar) 100 Mg Tablet, 100 MG PO DAILY for 30 Days, #30 (R eported) Magnesium Oxide (Magnesium Oxide) 400 Mg Tablet, 400 MG PO BID for constipation for 30 Days, #60 (Reported) Metformin HCl (Metformin HCl) 1,000 Mg Tablet, 1,000 MG PO DAILY, (Reported) Multivitamin (Multivitamins) 1 Cap Cap, 1 CAP PO DAILY for 30 Days, #30 (Reported) Rivaroxaban (Xarelto) 20 Mg Tablet, 20 MG PO DAILY, (Reported) Sitagliptin Phosphate (Januvia) 100 Mg Tablet, 100 MG PO DAILY, (Reported) Miscellaneous Medications [place]-3 Fatty Acids/Fish Oil (Fish Oil 1,000 mg Capsule) 1,000 Mg Cap, 1,000 MG PO, (Reported) TRANG FRIEDMAN MD Apr 20, 2019 15:47
[2019-04-20] MEDS: HumaLOG INSULIN (NovoLOG) PER UNIT SC SCH (17:04)
[2019-04-20] MEDS ORDERED: metFORMIN (GLUCOPHAGE) 1000 MG TABLET PO SCH (18:00)
[2019-04-20] MEDS: MAGNESIUM OXIDE 400 MG TAB (MAG-OX) PO SCH (20:53)
[2019-04-20] MEDS: BISOPROLOL FUMARATE 10 MG TAB PO SCH (20:54)
[2019-04-20] MEDS ORDERED: HumaLOG INSULIN (NovoLOG) PER UNIT SC SCH (21:00)
[2019-04-21 01:00] VITALS: BP 159/65
[2019-04-21 05:07] VITALS: BP 141/72
[2019-04-21] MEDS ORDERED: PERC5TAB12 PO ×2 (05:52→06:01)
[2019-04-21] MEDS ORDERED: SITagliptin 50 MG TAB (JANUVIA) PO SCH (08:00)
--- NOTE | 2019-04-21 08:53 | IPN ---
DATE: 04/21/2019 CHIEF COMPLAINT: Postoperative day #1 partial cervical corpectomy C5 and ACDF C4-5 structural allograft. HISTORY OF PRESENT ILLNESS: This 78-year-old man has cervical stenosis with myelopathy. He underwent ACDF at the level yesterday. He is doing well. He complains about a little bit of dry mouth, but no difficulty swallowing or talking. He feels like the radicular arm pain is much better today. PHYSICAL EXAM: Well-appearing 78-year-old man. He is sitting up comfortably. He is alert and oriented times three. His affect is quite pleasant. He is easy to interact with. Vital signs: Temperature 98.0, blood pressure 141/72. Pulse rate 71. Resp rate 16. 97% on room air. In his upper extremities, he is quite strong. C5 to T1 5/5, normal sensation to the same nerve roots. Strong radial pulse both sides. Incisions clean and dry without swelling. He is very mild, what seems to be hoarseness. No difficulties breathing or swallowing. Laboratory examination revealed hemoglobin yesterday of 11.4. No blood work yet recorded this morning. ASSESSMENT AND PLAN: This 78-year-old man is doing quite well. If he is safe to be discharged home, he can go home today. Otherwise, he may benefit from physical therapy assessment, but he says he is feeling much better and getting around quite well. He will followup with Dr. Chin in the office.
--- NOTE | 2019-04-21 08:59 | IPNPDOC ---
Date Seen The patient was seen on 04/21/19. Progress Note SUBJECTIVE: Pt has no c/o of paresthesias, numbness, or weakness of b/l UE and hands. He ambulated well around the room, and was able to dress himself. He denies any pain. Incision site is clean, without drainage, swelling, or induration OBJECTIVE: PHYSICAL EXAMINATION: vitals: pls see below GEN: AAO x 3 cervical brace anicteric no jaundice. no accessory resp mm use. HEENT: post op cervical spine changes, unable to assess for jvd or cervical LAD due to cervical brace ANTERIOR NECK Incision site is clean, without drainage, swelling, or induration LUNGS: CTAB AEBE no wheezing or rales HEART: S1S2 Abdomen is soft and nontender nondistended. EXT: no edema, cyanosis or clubbing NEURO: paresthesias in the left hand. 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 gait not tested. LABORATORY DATA, IMAGING STUDIES, MICROBIOLOGY: REVIEWED, PLS SEE BELOW ASSESSMENT AND PLAN: 78-year-old male patient with past medical history significant for Hypertension, type 2 diabetes with diabetic neuropathy,chronic atrial fibrillation, chronic diastolic heart failure,hypercholesterolemia, benign cardiac murmur, gout, alondra ropathy, anemia, history of methicillin-resistant Staphylococcus aureus (MRSA) infection of left great toe admitted to the Orthopedic service s/p right sided anterior cervical decompression and partial corpectomy at C4 and C4-5 fusion with the use of donor bone and metal hardware with Dr. Trung Chin. Hospitalist was consulted for management of chronic medical problems. Pt c/o paresthesias in the left hand and fingers, but none on the right. s/p right sided anterior cervical decompression and partial corpectomy at C4 and C4-5 fusion with the use of donor bone and metal hardware with Dr. Trung Chin. stable for discharge Hypertension, resumed on home meds with holding parameters type 2 diabetes with diabetic neuropathy, held oral hypoglycemics while admitted insulin while inpatient consistent carbs diet chronic atrial fibrillation, betablocker and anticoagulant while inpt at home dose chronic diastolic heart failure, resumed diuretic and losartan hypercholesterolemia, stable benign cardiac murmur, asymptomatic gout, chronic neuropathy, anemia, chronic history of methicillin-resistant Staphylococcus aureus (MRSA) infection recheck mrsa screen dvt prophylaxis: per ortho disposition:medically stable for hospital discharge. may resume home meds including xarelto at home dose. outpt fu w pcp within 5days. VS, I&O, 24H, Fishbone Vital Signs/I&O Vital Signs Date Time Temp Pulse Resp B/P (MAP) Pulse Ox O2 Delivery O2 Flow Rate FiO2 04/21/19 05:07 98.0 71 16 141/72 (95) 97 04/21/19 01:00 1.0 I&O- Last 24 Hours up to 6 AM 04/21/19 06:00 Intake Total 2695 ml Output Total 390 ml Balance 2305 ml Laboratory Data 24H LABS Laboratory Tests 2 04/20/19 12:56: Immature Granulocyte % (Auto) 0.3, White Blood Count 8.8, Red Blood Count 3.52L, Hemoglobin 11.4L, Hematocrit 33.6L, Mean Corpuscular Volume 95.5, Mean Corpuscular Hemoglobin 32.4, Mean Corpuscular Hemoglobin Concent 33.9, Red Cell Distribution Width 13.3, Platelet Count 245, Neutrophils (%) (Auto) 84.7H, Lymphocytes (%) (Auto) 12.7L, Monocytes (%) (Auto) 1.7, Eosinophils (%) (Auto) 0.1, Basophils (%) (Auto) 0.5, Neutrophils # (Auto) 7.4, Lymphocytes # (Auto) 1.1L, Monocytes # (Auto) 0.2, Eosinophils # (Auto) 0.0, Basophils # (Auto) 0.0, Nucleated Red Blood Cells % (auto) 0.0, Anion Gap 7L, Glomerular Filtration Rate 58.5, Estimated Mean Plasma Glucose 143H, Hemoglobin A1c 6.6, Blood Urea Nitrogen 17, Creatinine 1.27, Sodium Level 143, Potassium Level 4.5, Chloride Level 107, Carbon Dioxide Level 29, Calcium Level 9.2, Magnesium Level 2.3, Thyroid Stimulating Hormone (TSH) 1.610 04/20/19 16:26: Bedside Glucose (Misc Panel) 164H 04/20/19 19:49: Bedside Glucose (Misc Panel) 193H CBC/BMP Laboratory Tests 04/20/19 12:56 Red Blood Count 3.52 L, Mean Corpuscular Volume 95.5, Mean Corpuscular Hemoglobin 32.4, Mean Corpuscular Hemoglobin Concent 33.9, Red Cell Distribution Width 13.3, Neutrophils (%) (Auto) 84.7 H, Lymphocytes (%) (Auto) 12.7 L, Monocytes (%) (Auto) 1.7, Eosinophils (%) (Auto) 0.1, Basophils (%) (Auto) 0.5, Neutrophils # (Auto) 7.4, Lymphocytes # (Auto) 1.1 L, Monocytes # (Auto) 0.2, Eosinophils # (Auto) 0.0, Basophils # (Auto) 0.0, Calcium Level 9.2 TRANG FRIEDMAN MD Apr 21, 2019 08:59
[2019-04-21] MEDS ORDERED: LOSARTAN 50 MG TAB PO SCH (09:00)
[2019-04-21] MEDS ORDERED: guaiFENesin ER 600 MG TAB PO SCH (09:00)
[2019-04-21] MEDS ORDERED: FLUTICASONE PROP 0.05% NASAL SPRAY 16 GM (FLONASE) NARES SCH (09:00)
[2019-04-21] MEDS: MAGNESIUM OXIDE 400 MG TAB (MAG-OX) PO SCH (09:14)
[2019-04-21] MEDS: FUROSEMIDE 80 MG TAB PO SCH (09:15)
[2019-04-21] MEDS: HumaLOG INSULIN (NovoLOG) PER UNIT SC SCH (09:16)
[2019-04-21] MEDS: METAMUCIL (PSYLLIUM) PACKET PO SCH (09:16)
[2019-04-21 09:37] VITALS: BP 141/72
[2019-04-21] MEDS: BISOPROLOL FUMARATE 10 MG TAB PO SCH (09:37)
== END 2019-04-21 11:30 | disposition home or self-care (01) | DRG 472 ==
LOC: M OR 05:50 → M MS5PR 12:00
PROVIDERS: ADMIT Orthopaedic Surgery; ATTEND Orthopaedic Surgery
PROC: 0RG20A0 Fusion of 2 or more Cervical Vertebral Joints with Interbody Fusion Device, Anterior Approach, Anterior Column, Open Approach (ICD-10-PCS; principal; 2019-04-20 07:30)
DX: M47.12 Other spondylosis with myelopathy, cervical region (principal); I50.32 Chronic diastolic (congestive) heart failure; M48.02 Spinal stenosis, cervical region; I11.0 Hypertensive heart disease with heart failure; E11.40 Type 2 diabetes mellitus with diabetic neuropathy, unspecified; Z79.899 Other long term (current) drug therapy; I48.2 Chronic atrial fibrillation; E78.00 Pure hypercholesterolemia, unspecified; M10.9 Gout, unspecified; D64.9 Anemia, unspecified

== ENCOUNTER → 2019-05-28 | Outpatient (REF) | payer MEDICARE, BC ==
[~2019-05-28] MED LIST changes: +BISO10TA10 PO; -BISO10TA7 PO; +PERC5TAB12 PO
[2019-05-28 10:06] LABS: BASO # 0.1 10^3/uL (0.0-0.2); BASO % 0.8 % (0.0-1.0); EOS # 0.2 10^3/uL (0.0-0.5); EOS % 2.6 % (0.0-3.0); HEMATOCRIT 36.3 % (42.0-52.0); HEMOGLOBIN 12.1 g/dl (13.5-17.5); LYMPH # 2.5 10^3/uL (1.5-5.0); LYMPH % 29.7 % (24.0-44.0); MEAN CORPUSCULAR HEMOGLOBIN 31.6 pg (27.0-33.0); MEAN CORPUSCULAR HGB CONC 33.3 g/dl (32.0-36.5); MEAN CORPUSCULAR VOLUME 94.8 fl (80.0-96.0); MONO # 0.9 10^3/uL (0.0-0.8); MONO % 10.7 % (0.0-5.0); NEUTROPHILS # 4.7 10^3/uL (1.5-8.5); NEUTROPHILS % 55.7 % (36.0-66.0); PLATELET COUNT, AUTOMATED 231 10^3/uL (150-450); RED BLOOD COUNT 3.83 10^6/uL (4.30-6.10); WHITE BLOOD COUNT 8.4 10^3/uL (4.0-10.0)
[2019-05-28 10:15] LABS: ALBUMIN 3.7 GM/DL (3.2-5.2); ALT/SGPT 24 U/L (12-78); BILIRUBIN,TOTAL 0.5 MG/DL (0.2-1.0); BLOOD UREA NITROGEN 18 MG/DL (7-18); CALCIUM LEVEL 9.3 MG/DL (8.8-10.2); CARBON DIOXIDE LEVEL 30 MEQ/L (21-32); CHLORIDE LEVEL 104 MEQ/L (98-107); CREATININE FOR GFR 1.12 MG/DL (0.70-1.30); FERRITIN 120 NG/ML (26-388); GLOMERULAR FILTRATION RATE > 60.0 (>42); GLUCOSE, FASTING 143 MG/DL (70-100); IRON (FE) 75 UG/DL (65-175); PERCENT SATURATION 26.6 % (19.7-50.0); POTASSIUM SERUM 4.1 MEQ/L (3.5-5.1); SODIUM LEVEL 143 MEQ/L (136-145); TOTAL IRON BINDING CAPACITY 282 UG/DL (250-450); TOTAL PROTEIN 6.5 GM/DL (6.4-8.2)
[2019-05-28 10:25] LABS: HEMOGLOBIN A1c 6.4 %
[2019-05-28 15:27] LABS: FOLATE > 24.0 NG/ML; VITAMIN B12 LEVEL 500 PG/ML
== END ==
LOC: M SFHCPLAZ 07:42
PROVIDERS: ATTEND Internal Medicine
DX: D64.9 Anemia, unspecified (principal); I11.9 Hypertensive heart disease without heart failure; E11.40 Type 2 diabetes mellitus with diabetic neuropathy, unspecified

== ENCOUNTER 2019-06-25 06:05 | Day surgery (SDC) | payer MEDICARE, BC ==
[~2019-06-25] VITALS: Ht 182.9 cm; Wt 94.8 kg
[~2019-06-25 06:05] MED LIST changes: +NS 1,000 ML IV ONE
[2019-06-25] MEDS ORDERED: LIDOCAINE 2% INJ 100 MG/5 ML SDV (FOR ANES.) As Ordered ONE (08:07)
[2019-06-25] MEDS ORDERED: PROPOFOL 200 MG/20 ML VIAL As Ordered ONE (08:07)
--- NOTE | 2019-06-25 08:09 | ROOR ---
Patient Name: Hernan Blunt Procedure Date: 06/25/2019 7:35 AM Date of : 1940 Age: 79 Room: [facility] Gender: Male Note Status: Finalized Procedure: Total Colonoscopy to Cecum + Cold Snare Polypectomy + Hemoclips Indications: Screening in patient at increased risk: Colorectal cancer in father 60 or older, High risk colon cancer surveillance: Personal history of colonic polyps Providers: Brigido Thompson MD Referring MD: Anjel Pastor MD Requesting Provider: Medicines: Monitored Anesthesia Care Complications: No immediate complications. Procedure: Pre-Anesthesia Assessment: - The heart rate, respiratory rate, oxygen saturations, blood pressure, adequacy of pulmonary ventilation, and response to care were monitored throughout the procedure. The Colonoscope was introduced through the anus and advanced to the cecum, identified by appendiceal orifice and ileocecal valve. The colonoscopy was performed without difficulty. The patient tolerated the procedure well. The quality of the bowel preparation was good. Findings: The perianal and digital rectal examinations were normal. Non-bleeding internal hemorrhoids were found during retroflexion. The hemorrhoids were small and Grade I (internal hemorrhoids that do not prolapse). Multiple small and large-mouthed diverticula were found in the recto-sigmoid colon, sigmoid colon and descending colon. A small polyp was found in the proximal transverse colon. The polyp was sessile. The polyp was removed with a cold snare. Resection and retrieval were complete. A small polyp was found in the distal ascending colon. The polyp was sessile. The polyp was removed with a cold snare. Resection and retrieval were complete. A large polyp was found in the proximal ascending colon. The polyp was sessile. The polyp was removed with a cold snare. Resection and retrieval were complete. To prevent bleeding after the polypectomy, four hemostatic clips were successfully placed (MR conditional). There was no bleeding at the end of the procedure. The exam was otherwise without abnormality on direct and retroflexion views. Impression: - Non-bleeding internal hemorrhoids. - Diverticulosis in the recto-sigmoid colon, in the sigmoid colon and in the descending colon. - One small polyp in the proximal transverse colon, removed with a cold snare. Resected and retrieved. - One small polyp in the distal ascending colon, removed with a cold snare. Resected and retrieved. - One large polyp in the proximal ascending colon, removed with a cold snare. Resected and retrieved. Clips (MR conditional) were placed. - The examination was otherwise normal on direct and retroflexion views. - The exam was otherwise normal to the cecum. Recommendation: - Patient has a contact number available for emergencies. The signs and symptoms of potential delayed complications were discussed with the patient. Return to normal activities tomorrow. Written discharge instructions were provided to the patient. - High fiber diet. - Discharge patient to home. - Continue present medications. - Await pathology results. - Telephone GI clinic for pathology results in 1 week. - Repeat colonoscopy for surveillance based on pathology results. - Return to referring physician. - The findings and recommendations were discussed with the patient's family. - Resume Xarelto (rivaroxaban) at prior dose today. Brigido Thompson MD Brigido Thompson MD 06/25/2019 8:08:46 AM Electronically signed by Brigido Thompson MD Number of Addenda: 0 Note Initiated On: 06/25/2019 7:35 AM Estimated Blood Loss: Estimated blood loss: none.
[2019-06-25 08:30] VITALS: BP 135/72
== END 2019-06-25 08:34 | disposition home or self-care (01) ==
LOC: M OPP 06:05
PROVIDERS: ATTEND Internal Medicine Gastroenterology
DX: Z12.11 Encounter for screening for malignant neoplasm of colon (principal); Z86.010 Personal history of colon polyps; Z80.0 Family history of malignant neoplasm of digestive organs; K64.0 First degree hemorrhoids; D12.3 Benign neoplasm of transverse colon; D12.2 Benign neoplasm of ascending colon; K57.30 Diverticulosis of large intestine without perforation or abscess without bleeding; E11.9 Type 2 diabetes mellitus without complications; I48.91 Unspecified atrial fibrillation; Z79.84 Long term (current) use of oral hypoglycemic drugs; Z79.899 Other long term (current) drug therapy

== ENCOUNTER → 2019-06-28 | Outpatient (CLI) | payer MEDICARE, BC ==
[~2019-06-28] MED LIST changes: -NS 1,000 ML IV ONE
--- NOTE | 2019-06-28 16:04 | REP ---
Bilateral carotid artery duplex ultrasound: Peak flow velocity analysis: RIGHT LEFT ICA Peak flow velocity cm/sec 95.3 74.6 ICA Diastolic flow velocity cm/sec 27 point 21.3 ICA/CCA Ratio 0.8 0.5 ECA Peak flow velocity cm/sec 100.4 103.9 CCA Peak flow velocity cm/sec 120.1 161.0 There is diffuse heavy atheromatous plaque bilaterally in the common carotid artery, bulbs and in the proximal, mid and distal internal carotid arteries bilaterally and in the proximal external carotid arteries bilaterally. The peak flow velocities are normal bilaterally, indicating there is no significant stenosis on the right on the left. However, there is circumferential heavy plaque in the bulbs bilaterally. Peak flow velocities are not performed in the bulbs, however, the heavy circumferential plaque bilaterally is bothersome. Therefore, consider follow-up carotid CTA or MRA for more accurate evaluation of the carotid bulbs regarding stenosis. There is antegrade flow in the vertebral arteries bilaterally. Bilateral thyroid nodules containing calcification are incidentally identified. Follow-up thyroid ultrasound might be considered for further evaluation. Electronically Signed by Steven Salas MD 06/28/2019 03:55 P
== END ==
LOC: M RAD 14:29
PROVIDERS: ATTEND Psychiatry & Neurology Neurology
DX: G46.7 Other lacunar syndromes (principal); I65.23 Occlusion and stenosis of bilateral carotid arteries; E04.2 Nontoxic multinodular goiter

== ENCOUNTER → 2019-09-26 | Outpatient (REF) | payer MEDICARE, BC ==
[~2019-09-26] MED LIST changes: -BISO10TA10 PO; +BISO10TA14 PO; +CYCL5TAB PO
[2019-09-26 15:58] LABS: APPEARANCE, URINE CLEAR (CLEAR); BACTERIA, URINE AUTO NEGATIVE (NEGATIVE); BILIRUBIN, URINE AUTO NEGATIVE (NEGATIVE); BLOOD, URINE BLOOD NEGATIVE (NEGATIVE); COLOR, URINE STRAW (YELLOW); GLUCOSE, URINE (UA) AUTO NEGATIVE (NEGATIVE); KETONE, URINE AUTO NEGATIVE (NEGATIVE); LEUKOCYTE ESTERASE, URINE AUTO NEGATIVE (NEGATIVE); MUCUS, URINE SMALL (NEGATIVE); NITRITE, URINE AUTO NEGATIVE (NEGATIVE); PROTEIN, URINE AUTO NEGATIVE (NEGATIVE); RBC, URINE AUTO 1 /HPF (0-3); SPECIFIC GRAVITY URINE AUTO 1.005 (1.002-1.035); SQUAMOUS EPITHELIAL CELL UR AU 0 /HPF (0-6); UROBILINOGEN, URINE AUTO 0.2 mg/dL (0.0-2.0); WBC, URINE AUTO 0 /HPF (0-3)
== END ==
LOC: M SFHCPLAZ 15:21
PROVIDERS: ATTEND Internal Medicine
DX: R82.90 Unspecified abnormal findings in urine (principal)
CPT/HCPCS: 81001; 87086; G0463

== ENCOUNTER → 2019-10-08 | Outpatient (REF) | payer MEDICARE, BC ==
[2019-10-08 19:19] LABS: BASO # 0.1 10^3/uL (0.0-0.2); BASO % 0.4 % (0.0-1.0); EOS # 0.2 10^3/uL (0.0-0.5); EOS % 1.9 % (0.0-3.0); HEMATOCRIT 38.1 % (42.0-52.0); HEMOGLOBIN 12.2 g/dl (13.5-17.5); LYMPH % 26.3 % (24.0-44.0); MEAN CORPUSCULAR HEMOGLOBIN 31.4 pg (27.0-33.0); MEAN CORPUSCULAR VOLUME 98.2 fl (80.0-96.0); MONO # 1.3 10^3/uL (0.0-0.8); MONO % 11.5 % (0.0-5.0); NEUTROPHILS # 6.8 10^3/uL (1.5-8.5); NEUTROPHILS % 59.2 % (36.0-66.0); PLATELET COUNT, AUTOMATED 289 10^3/uL (150-450); RED BLOOD COUNT 3.88 10^6/uL (4.30-6.10); WHITE BLOOD COUNT 11.4 10^3/uL (4.0-10.0)
[2019-10-08 19:44] LABS: HEMOGLOBIN A1c 6.6 %
[2019-10-08 20:01] LABS: CREATININE, URINE 47.9 MG/DL; MALB URINE SIEMENS 33.2 MG/L; MAU/CREAT RATIO 69.3 MCG/MG (0.0-30.0)
[2019-10-08 20:02] LABS: ALBUMIN 4.1 GM/DL (3.2-5.2); BILIRUBIN,TOTAL 0.5 MG/DL (0.2-1.0); CALCIUM LEVEL 9.3 MG/DL (8.8-10.2); CHOLESTEROL RISK RATIO 5.206 (<5); CREATININE FOR GFR 1.24 MG/DL (0.70-1.30); MAGNESIUM LEVEL 2.4 MG/DL (1.8-2.4); POTASSIUM SERUM 4.2 MEQ/L (3.5-5.1); TOTAL PROTEIN 7.4 GM/DL (6.4-8.2)
== END ==
LOC: M LABDRAW1 17:17
PROVIDERS: ATTEND Internal Medicine
DX: E11.40 Type 2 diabetes mellitus with diabetic neuropathy, unspecified (principal); I11.9 Hypertensive heart disease without heart failure; E78.00 Pure hypercholesterolemia, unspecified; M10.9 Gout, unspecified; D64.9 Anemia, unspecified

== ENCOUNTER 2019-10-09 06:46 | Emergency (ER) | payer MEDICARE, BC ==
[~2019-10-09] VITALS: Ht 182.9 cm; Wt 95.5 kg
[~2019-10-09 06:46] MED LIST changes: -CYCL5TAB PO
[2019-10-09 07:57] LABS: BASO # 0.1 10^3/uL (0.0-0.2); BASO % 0.5 % (0.0-1.0); EOS # 0.2 10^3/uL (0.0-0.5); EOS % 1.9 % (0.0-3.0); HEMATOCRIT 35.4 % (42.0-52.0); HEMOGLOBIN 11.7 g/dl (13.5-17.5); LYMPH # 2.6 10^3/uL (1.5-5.0); MEAN CORPUSCULAR HEMOGLOBIN 31.5 pg (27.0-33.0); MEAN CORPUSCULAR HGB CONC 33.1 g/dl (32.0-36.5); MEAN CORPUSCULAR VOLUME 95.4 fl (80.0-96.0); MONO # 1.1 10^3/uL (0.0-0.8); MONO % 9.7 % (0.0-5.0); NEUTROPHILS # 7.3 10^3/uL (1.5-8.5); PLATELET COUNT, AUTOMATED 268 10^3/uL (150-450); RED BLOOD COUNT 3.71 10^6/uL (4.30-6.10); WHITE BLOOD COUNT 11.3 10^3/uL (4.0-10.0)
[2019-10-09 08:25] LABS: BLOOD UREA NITROGEN 28 MG/DL (7-18); C REACTIVE PROTEIN QUANTITATIV 0.32 MG/DL (0.00-0.30); CALCIUM LEVEL 8.6 MG/DL (8.8-10.2); CARBON DIOXIDE LEVEL 28 MEQ/L (21-32); CHLORIDE LEVEL 109 MEQ/L (98-107); CREATININE FOR GFR 1.04 MG/DL (0.70-1.30); GLOMERULAR FILTRATION RATE > 60.0 (>42); GLUCOSE, FASTING 144 MG/DL (70-100); POTASSIUM SERUM 4.3 MEQ/L (3.5-5.1); SODIUM LEVEL 141 MEQ/L (136-145)
[2019-10-09 08:27] LABS: ERYTHROCYTE SEDIMENTATION RATE 17 mm/hr (0-20)
--- NOTE | 2019-10-09 08:58 | REP ---
CT of the abdomen and pelvis without IV or bowel contrast for right flank pain: Comparison is 02/02/2019 with IV contrast. There are no renal collecting system calculi. There is no hydronephrosis or hydroureter. There is vascular atheromatous the the renal arteries bilaterally, unchanged. No solid or cystic renal masses are identified, however the study is somewhat less sensitive in the absence of IV contrast. There is no significant perinephric stranding. The visualized lung uribe are unremarkable. The unenhanced hepatic parenchyma is homogeneous. There is a small 1 cm hepatic cyst at the inferior tip of the hepatic right lobe, unchanged. There are surgical clips in the gallbladder fossa, unchanged. The pancreas and spleen are normal size and unremarkable. The adrenals are unremarkable. There is no abdominal aortic aneurysm. There is heavily calcified aortic atheroma. No periaortic adenopathy or mass are identified. The bowel and mesentery are unremarkable. Pelvis: There are small appendicoliths in the mid appendix. There is no evidence of appendiceal distension or inflammation. The appendix is otherwise unremarkable. There is diverticulosis without diverticulitis of the descending colon and sigmoid colon. This is unchanged. There are no bladder calculi. The bladder is otherwise unremarkable. No pelvic adenopathy or ascites. There is multilevel advanced degenerative disc disease throughout the lumbar spine. This is unchanged. Impression: There are no renal, ureteral or bladder calculi. There is no hydronephrosis. No solid or cystic renal masses are identified, however the study is somewhat less sensitive in the absence of IV contrast. The appendix is unremarkable except for small appendicoliths. Descending colon and sigmoid colon diverticulosis without diverticulitis, unchanged. Cholecystectomy. Tiny hepatic right lobe cyst as described. No ascites or bowel distension. No adenopathy or mass. Electronically Signed by Steven Salas MD 10/09/2019 08:49 A
[2019-10-09] MEDS ORDERED: RIVAROXABAN 20 MG TAB (XARELTO) PO ONE (10:30)
[2019-10-09] MEDS ORDERED: FUROSEMIDE 80 MG TAB PO ONE (10:30)
[2019-10-09] MEDS ORDERED: SITagliptin 50 MG TAB (JANUVIA) PO ONE (10:30)
[2019-10-09] MEDS ORDERED: bisoproloL fumarate 10 MG TAB PO ONE (10:30)
[2019-10-09] MEDS ORDERED: MAGNESIUM OXIDE 400 MG TAB (MAG-OX) PO ONE (10:30)
[2019-10-09] MEDS ORDERED: LOSARTAN 50 MG TAB PO ONE (10:30)
[2019-10-09 11:25] VITALS: BP 158/74
[2019-10-09] MEDS ORDERED: LORazepam 2 MG/ML VIAL (J2060) IV ONE (12:15)
--- NOTE | 2019-10-09 13:56 | REP ---
MRI lumbar spine without contrast: History: Right sided radicular pain. Low back pain. No known injury. Comparison is made with today's CT images. Technique: Sagittal and axial T1 and T2-weighted scans are acquired in the usual fashion with and without fat saturation. Sequences include spin echo, turbo spin-echo, and STIR imaging sequences. MRI findings: There is straightening of the normal lumbar lordosis. Cortical and medullary bone signal intensity are normal. There is no evidence of spondylolysis or spondylolisthesis. The tip of the conus medullaris is normal in appearance and position at L1. No extra vertebral abnormality is appreciated. Axial and sagittal images at the L1-2 level show no abnormality. At L2-3, there is minimal diffuse disc bulging. No other finding. At L3-4, there is degenerative narrowing of the disc space. There is a moderate size right posterior focal disc protrusion which compresses the right ventral margin of the thecal sac and contributes along with ligamentum flavum hypertrophy, facet hypertrophy, and developmentally short pedicles, to moderate L3-4 central canal stenosis. There is right foraminal disc bulging and facet hypertrophy contributing to moderate right neural foraminal encroachment. There is mild left neural foraminal narrowing due to discogenic spurring and facet hypertrophy as well. The AP dimension of the thecal sac at L3-4 in the midline is 6.8 mm. There is moderate compression of the thecal sac at this level. At L4-5, there is also moderate central canal stenosis. There is central disc bulging moderate in degree along with facet and ligamentum flavum hypertrophy contributing to central canal stenosis. There is significant right-sided neural foraminal narrowing at L4-5. Minimal narrowing on the left due to facet hypertrophy and disc bulging. AP dimension of the thecal sac in the midline at 4-5 is 8.2 mm. At L5-S1, there is diffuse disc bulging centrally with discogenic spurring. There is bilateral neural foraminal narrowing due to facet hypertrophy and disc bulging. Impression: Moderate degree of central canal stenosis at L3-4 and to a slightly lesser extent L4-5. There is a right posterior disc protrusion at L3-4. There is significant neural foraminal narrowing at L3-4 and L4-5 , right worse than left. There is bilateral neural foraminal narrowing at L5-S1. Electronically Signed by Ronald Dorman MD 10/09/2019 02:40 P
[2019-10-09] MEDS ORDERED: PERC5TAB12 PO (14:28)
[2019-10-09] MEDS ORDERED: CYCL5TAB PO (14:28)
[2019-10-09 15:13] VITALS: BP 164/92
--- NOTE | 2019-10-10 14:48 | ED PDOC ---
Post-Departure Follow-Up dr gotti faxed formal report of mri ls spine for fu Clark Fernando MD Oct 10, 2019 14:48
== END 2019-10-09 15:14 | disposition home or self-care (01) ==
LOC: M ED 06:46
DX: M51.36 Other intervertebral disc degeneration, lumbar region (principal); I48.91 Unspecified atrial fibrillation; I50.9 Heart failure, unspecified; E11.40 Type 2 diabetes mellitus with diabetic neuropathy, unspecified; I10 Essential (primary) hypertension; E78.5 Hyperlipidemia, unspecified; M10.9 Gout, unspecified; Z86.14 Personal history of Methicillin resistant Staphylococcus aureus infection; M48.061 Spinal stenosis, lumbar region without neurogenic claudication; M51.26 Other intervertebral disc displacement, lumbar region; M99.53 Intervertebral disc stenosis of neural canal of lumbar region; K57.30 Diverticulosis of large intestine without perforation or abscess without bleeding; K76.89 Other specified diseases of liver; Z79.01 Long term (current) use of anticoagulants; Z79.84 Long term (current) use of oral hypoglycemic drugs; Z79.899 Other long term (current) drug therapy; Z88.8 Allergy status to other drugs, medicaments and biological substances
CPT/HCPCS: 72148; 74176; 80048; 85025; 85652; 86140; 96374; 99284; J2060

== ENCOUNTER → 2019-12-03 | Outpatient (REF) | payer MEDICARE, BC ==
[~2019-12-03] MED LIST changes: +CYCL5TAB PO
[2019-12-03 11:59] LABS: ALBUMIN 3.9 GM/DL (3.2-5.2); BILIRUBIN,TOTAL 0.5 MG/DL (0.2-1.0); CALCIUM LEVEL 9.3 MG/DL (8.8-10.2); CREATININE FOR GFR 1.32 MG/DL (0.70-1.30); GLOMERULAR FILTRATION RATE 55.8 (>42); MAGNESIUM LEVEL 2.5 MG/DL (1.8-2.4); POTASSIUM SERUM 4.7 MEQ/L (3.5-5.1)
[2019-12-03 12:13] LABS: HEMOGLOBIN A1c 6.9 %
[2019-12-03 13:58] LABS: MALB URINE SIEMENS 12.3 MG/L
== END ==
LOC: M SFHCPLAZ 09:09
PROVIDERS: ATTEND Internal Medicine
DX: I50.32 Chronic diastolic (congestive) heart failure (principal); I11.9 Hypertensive heart disease without heart failure; E11.40 Type 2 diabetes mellitus with diabetic neuropathy, unspecified

== ENCOUNTER → 2020-01-03 | Outpatient (REF) | payer MEDICARE, BC ==
[2020-01-03 11:53] LABS: ALBUMIN 3.8 GM/DL (3.2-5.2); BILIRUBIN,TOTAL 0.5 MG/DL (0.2-1.0); CALCIUM LEVEL 9.3 MG/DL (8.8-10.2); CREATININE FOR GFR 1.37 MG/DL (0.70-1.30); GLOMERULAR FILTRATION RATE 53.5 (>42); MAGNESIUM LEVEL 2.4 MG/DL (1.8-2.4); POTASSIUM SERUM 4.6 MEQ/L (3.5-5.1); TOTAL PROTEIN 7.2 GM/DL (6.4-8.2)
[2020-01-03 11:57] LABS: MALB URINE SIEMENS 17.3 MG/L; MAU/CREAT RATIO 11.3 MCG/MG (0.0-30.0)
== END ==
LOC: M SFHCPLAZ 08:30
PROVIDERS: ATTEND Internal Medicine
DX: I11.0 Hypertensive heart disease with heart failure (principal); I11.9 Hypertensive heart disease without heart failure; E11.40 Type 2 diabetes mellitus with diabetic neuropathy, unspecified; I50.32 Chronic diastolic (congestive) heart failure

== ENCOUNTER 2020-06-13 13:25 | Inpatient (IN) | payer MEDICARE, BC ==
[~2020-06-13] VITALS: Ht 182.9 cm; Wt 105.1 kg
[2020-06-13] MEDS ORDERED: ACETAMINOPHEN 325 MG TAB PO ONE (14:15)
[2020-06-13 14:16] LABS: VENOUS BASE EXCESS -1.2 (-2.0-2.0); VENOUS HCO3 23.1 MEQ/L (23.0-27.0); VENOUS O2 SATURATION 84.5 % (60.0-80.0); VENOUS PARTIAL PRESSURE CO2 36.7 mmHg (38.0-50.0); VENOUS PARTIAL PRESSURE O2 48.8 mmHg (30.0-50.0); VENOUS PH 7.416 UNITS (7.330-7.430); VENOUS STANDARD HCO3 23.3 MEQ/L; VENOUS TOTAL CO2 24.2 MEQ/L (24.0-28.0)
[2020-06-13 14:20] LABS: BASO # 0.1 10^3/uL (0.0-0.2); BASO % 0.3 % (0.0-1.0); HEMOGLOBIN 9.5 g/dl (13.5-17.5); LYMPH # 1.5 10^3/uL (1.5-5.0); LYMPH % 7.8 % (24.0-44.0); MEAN CORPUSCULAR HEMOGLOBIN 32.4 pg (27.0-33.0); MEAN CORPUSCULAR HGB CONC 33.9 g/dl (32.0-36.5); MEAN CORPUSCULAR VOLUME 95.6 fl (80.0-96.0); MONO # 1.5 10^3/uL (0.0-0.8); MONO % 7.9 % (0.0-5.0); NEUTROPHILS # 15.8 10^3/uL (1.5-8.5); NEUTROPHILS % 82.8 % (36.0-66.0); PLATELET COUNT, AUTOMATED 208 10^3/uL (150-450); RED BLOOD COUNT 2.93 10^6/uL (4.30-6.10); WHITE BLOOD COUNT 19.1 10^3/uL (4.0-10.0)
--- NOTE | 2020-06-13 14:25 | REPVR ---
PROCEDURE INFORMATION: Exam: CT Head Without Contrast Exam date and time: 06/13/2020 2:05 PM Age: 80 years old Clinical indication: Altered mental status/memory loss TECHNIQUE: Imaging protocol: Computed tomography of the head without contrast. Radiation optimization: All CT scans at this facility use at least one of these dose optimization techniques: automated exposure control; mA and/or kV adjustment per patient size (includes targeted exams where dose is matched to clinical indication); or iterative reconstruction. COMPARISON: No relevant prior studies available. FINDINGS: Brain: Patchy lucencies in the white matter are nonspecific but most suggestive of chronic microvascular ischemic disease. There is no evidence for large acute cortical infarct. No intracranial hemorrhage or extraaxial collection is identified. There is no significant intracranial mass effect. Cerebral ventricles: No ventriculomegaly. Bones/joints: Unremarkable. No acute fracture. Paranasal sinuses: Visualized sinuses are unremarkable. No fluid levels. Mastoid air cells: Visualized mastoid air cells are well aerated. Vasculature: Intracranial atherosclerotic vascular calcifications are noted. Soft tissues: Unremarkable. IMPRESSION: No CT evidence for acute intracranial abnormality. While there is no CT evidence for acute infarct, MRI would be more sensitive in this regard if clinically indicated. ASSESSMENT: ASPECTS ([place] Stroke Program Early CT Score) is 10. COMMENTS: Early cerebral infarct may be CT occult in the first 12 hours. Electronically signed by: Jovan Martinez On 06/13/2020 14:25:14 PM
--- NOTE | 2020-06-13 14:26 | REPVR ---
PROCEDURE INFORMATION: Exam: XR Chest, 1 View Exam date and time: 06/13/2020 2:21 PM Age: 80 years old Clinical indication: Fever; Additional info: Altered mental status TECHNIQUE: Imaging protocol: XR of the chest Views: 1 view. COMPARISON: No relevant prior studies available. FINDINGS: Lungs: There is minor streaky atelectasis/scarring at the left lung base. The lungs are otherwise clear. Pleural space: Unremarkable. No pleural effusion. No pneumothorax. Heart/Mediastinum: Unremarkable. No cardiomegaly. Bones/joints: Degenerative changes involve the spine and shoulders. IMPRESSION: No evidence for acute pulmonary disease. Electronically signed by: Jovan Martinez On 06/13/2020 14:26:18 PM
[2020-06-13] MEDS: NS 1,000 ML IV SCH ×2 (14:35→19:50)
[2020-06-13 14:36] LABS: INR 3.67; PROTHROMBIN TIME 37.3 SECONDS (12.5-14.3)
[2020-06-13] MEDS ORDERED: NS 1,000 ML IV ONE (14:45)
[2020-06-13 14:54] LABS: ACETAMINOPHEN LEVEL < 2.0 UG/ML (10.0-30.0); ALBUMIN 3.9 GM/DL (3.2-5.2); ALT/SGPT 23 U/L (12-78); BILIRUBIN,DIRECT 0.3 MG/DL (0.0-0.2); BILIRUBIN,TOTAL 0.8 MG/DL (0.2-1.0); BLOOD UREA NITROGEN 41 MG/DL (7-18); CALCIUM LEVEL 8.9 MG/DL (8.8-10.2); CARBON DIOXIDE LEVEL 25 MEQ/L (21-32); CHLORIDE LEVEL 101 MEQ/L (98-107); CK-MB VALUE MASS 4.2 NG/ML (<3.6); CPK CREATINE PHOSPHOKINASE 725 U/L (39-308); CREATININE FOR GFR 1.96 MG/DL (0.70-1.30); GLOMERULAR FILTRATION RATE 35.3 (>42); GLUCOSE, FASTING 122 MG/DL (70-100); MB/CK RELATIVE INDEX 0.58 (< OR =4); POTASSIUM SERUM 4.3 MEQ/L (3.5-5.1); SALICYLATE LEVEL < 1.7 MG/DL (5.0-30.0); SODIUM LEVEL 133 MEQ/L (136-145); THYROID STIMULATING HORMONE 0.909 uIU/ML (0.358-3.740); TROPONIN I 0.39 NG/ML (< 0.10)
[2020-06-13 14:55] LABS: ETHYL ALCOHOL (ETHANOL) < 0.003 % (0.000-0.010)
[2020-06-13] MEDS ORDERED: SPIR-10 PO (15:41)
[2020-06-13] MEDS ORDERED: METF-838 PO (15:41)
[2020-06-13] MEDS ORDERED: GABA-843 PO (15:41)
--- NOTE | 2020-06-13 16:43 | REPVR ---
PROCEDURE INFORMATION: Exam: XR Right Hip with Pelvis when Performed Exam date and time: 06/13/2020 4:07 PM Age: 80 years old Clinical indication: Hip pain; Right hip; Additional info: Fall TECHNIQUE: Imaging protocol: XR Right hip with pelvis when performed. Views: 2 or 3 views. COMPARISON: CT ABD PELVIS W/O CONTRAST 10/09/2019 8:07 AM FINDINGS: Bones/joints: No acute fracture. No dislocation. Normal alignment. Accessory ossicles at the superior acetabular rim bilaterally. Mild bilateral hip osteoarthritis, right worse than left. There are degenerative changes in the lower lumbar spine. Soft tissues: Unremarkable. Vasculature: There are atherosclerotic vascular calcifications in the iliac and femoral arteries. There are bilateral pelvic calcifications, most likely calcified lymph nodes or calcifications from fat necrosis. IMPRESSION: 1. No acute fracture. 2. Degenerative changes at the hip joints and lower lumbar spine. Electronically signed by: Lorrie Steven On 06/13/2020 16:43:48 PM
[2020-06-13] MEDS ORDERED: PIPERACILLIN/TAZOBACTAM SOD 2.25 GM in D5W MINI-BAG PLUS 50 ML IV ONE (17:30)
[2020-06-13 18:20] LABS: AMPHETAMINES LEVEL URINE NEGATIVE (NEGATIVE); BARBITURATES URINE NEGATIVE (NEGATIVE); BENZODIAZEPINES URINE NEGATIVE (NEGATIVE); CANNABINOIDS URINE NEGATIVE (NEGATIVE); COCAINE METABOLITE URINE NEGATIVE (NEGATIVE); METHADONE URINE NEGATIVE (NEGATIVE); OPIATES URINE NEGATIVE (NEGATIVE); PHENCYCLIDINE URINE NEGATIVE (NEGATIVE)
--- NOTE | 2020-06-13 18:20 | ECGEPIP ---
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
--- NOTE | 2020-06-13 19:14 | CR.PDOC ---
General Date of Consultation: Jun 13, 2020 Referring Provider: YOBANI TODD Consultation REASON FOR CONSULTATION/CHIEF COMPLAINT: Sepsis, fall and unable to get up. HISTORY OF PRESENT ILLNESS: Mr. Blunt is a 80-year-old male with diabetes TYPE II, hypertension, atrial fibrillation, hyperlipidemia who comes to [facility] after an inability to get from the ground and found to have fever and leukocytosis. He tells me at baseline he has trouble moving his left leg. He tells me that he goes to physical therapy to help him with his left leg weakness. He is never had problems with his right leg before. Last night he went to bed around 10:45 PM. Then he told me that he rolled out of bed, fell to the ground, and could not get up. Normally he is able to get up off of the ground. Today he decided to come to the ED because of the leg weakness. While in the ED, his found to have a temperature of 102.7 and leukocytosis of 19.1. They obtained a chest x-ray, which demonstrated no evidence of acute pulmonary disease. We started him on IV fluids and call for admission. When I went on to see the patient, he told me that for a few months he noticed that he has been having urinary incontinence. He describes it as he was not able to make it to the bathroom to urinate, and it comes on once. He also reports that he sometimes have fecal incontinence as well. I used a pen to poke his inner thighs and he did not feel that. He does not know how long that has been going on. The only new symptom was weakness in his right leg/right thigh. Otherwise he denied any lightheadedness or dizziness, chest pain, abdominal pain or nausea, or dysuria. He did today he had this paresthesias in his feet. ALLERGIES: Please see below. HOME MEDICATIONS: Please see below. PAST MEDICAL HISTORY: 1. Atrial fibrillation. 2. Hypertension. 3. Gout 4. Diabetes 5. Diabetic neuropathy 6. Chronic diastolic heart failure 7. Hypercholesterolemia 8. History of methicillin-resistant staph aureus infection of the left great toe PAST SURGICAL HISTORY: 1. Focal cord polyp removal 2. Cholecystectomy 3. Right shoulder arthroscopy 4. Upper lid Blepharoplasties 5. Colonoscopies FAMILY HISTORY: Father: at the age of 86, history of colon cancer Mother: Diagnosed age of 89, no known medical history, denies diabetes, cancer, or thyroidism in mother. SOCIAL HISTORY: Tobacco use: Former smoker, quit 21 years ago, smoked for a few years but doesn't know for how long, 1 pack per day ETOH: Occasional alcohol Illicit drug use: Denies REVIEW OF SYSTEMS: CONSTITUTIONAL: Denies any fever or chills. Denies lightheadedness or dizziness. ENT: Denies rhinorrhea. Denies sore throat. Denies dysphagia. RESPIRATORY: Denies shortness of breath. Denies cough. CARDIOVASCULAR: Denies chest pain. Denies palpitations. GASTROINTESTINAL: Denies abdominal pain. Reports occasional fecal incontinence GENITOURINARY: Denies dysuria. Reports urinary incontinence CUTANEOUS: Denies rashes. MUSCULOSKELETAL: New right leg weakness, old left leg weakness NEUROLOGICAL: Reports occasional right leg neuropathy PSYCHOLOGICAL: Denies anxiety. Denies depression. PHYSICAL EXAMINATION: VITAL SIGNS: Please see below. GENERAL: Comfortable, in no apparent distress. HEENT: Head normocephalic/atraumatic, EOMI, sclera clear. NECK: Supple, no JVD. RESPIRATORY: Lungs clear to auscultation bilaterally, no rales, wheeze or rhonchi. CARDIOVASCULAR: Regular rate and rhythm. ABDOMEN: Soft, nontender, no guarding or rebound tenderness. Normal bowel sounds. MUSCLE SKELETAL: Unable to right thigh against gravity NEUROLOGICAL: CN 312 grossly intact, saddle anesthesia PSYCHOLOGICAL: Normal mood and affect LABORATORY DATA: Please see below. ASSESSMENT/PLAN: 1. Possible cauda equina syndrome Patient tells me that he has had both urinary incontinence and fecal incontinence. Today he developed new right leg weakness. Specifically, he history of a lifting his right thigh. Before he had trouble with his left leg and never had problems with his right Recommend getting MRI stat. He may need to be transferred for cauda equina syndrome as we cannot do decompression here 2. Sepsis Patient meets 2 out of 4 SIRS criteria with a fever of 102.7F and a leukocytosis of 19.1. Patient meets 0 out of 3 qsofa criteria Chest x-ray is clear, UA is pending, left toe ulcer does not have any exudates. Left toe ulcer is mostly dry, Unknown source, we will treat broadly with vancomycin and Zosyn. Patient does have history of left toe MRSA infection. Left toe does not appear to have cellulitis, the patient will be on vancomycin. 3. Lactic acidosis Patient is on metformin at home Blood pressure is stable, last blood pressure reading was 142/64 Lactic acidosis may be secondary to metformin versus sepsis 4. Mildly elevated troponins EKG does not suggest ACS. Troponin elevated at 0.39 May be an organ damage from sepsis versus poor clearance from kidneys Monitor every 6 hours until troponin started to decline 5. CKD versus GEOVANY Unknown baseline. Last creatinine was in December 2019. Creatinine was 1.37 at that time Creatinine on admission is 1.96 May be an organ damage from sepsis Patient will be receiving fluids 6. Diabetes mellitus If this patient will be admitted, metformin and Januvia will be held. Patient would be on a sliding scale insulin and a carb consistent diet. 7. Hypertension Because there is a concern for sepsis, antihypertensives will be held as well as diuretics. Holding losartan, diltiazem, and frusemide 8. Atrial fibrillation Holding Xarelto pending MRI results 9. DVT prophylaxis Pending results of MRI Dispo: Pending results of MRI. The patient does have cauda equina syndrome, patient should be sent out to a facility with neurosurgery. Otherwise if there is no cauda equina syndrome, patient can be managed here for sepsis Vital Signs/I&O Vital Signs Date Time Temp Pulse Resp B/P (MAP) Pulse Ox O2 Delivery O2 Flow Rate FiO2 06/13/20 16:00 80 119/70 (86) 06/13/20 15:45 97 Room Air 06/13/20 15:27 99.5 06/13/20 13:35 20 Laboratory Data Labs 24H Laboratory Tests 2 06/13/20 13:52: Bedside Glucose (Misc Panel) 123H 06/13/20 14:06: Immature Granulocyte % (Auto) 1.2, Neutrophils (%) (Auto) 82.8H, Lymphocytes (%) (Auto) 7.8L, Monocytes (%) (Auto) 7.9H, Eosinophils (%) (Auto) 0.0, Basophils (%) (Auto) 0.3, Neutrophils # (Auto) 15.8H, Lymphocytes # (Auto) 1.5, Monocytes # (Auto) 1.5H, Eosinophils # (Auto) 0.0, Basophils # (Auto) 0.1, Nucleated Red Blood Cells % (auto) 0.0, Prothrombin Time 37.3H, Prothromb Time International Ratio 3.67, Blood Gas Bicarbonate Standard 23.3, Venous Blood pH 7.416, Venous Blood Partial Pressure CO2 36.7L, Venous Blood Partial Pressure O2 48.8, Venous Blood Total Carbon Dioxide 24.2, Venous Blood HCO3 23.1, Venous Blood Oxygen Saturation 84.5H, Venous Blood Base Excess -1.2, Anion Gap 7L, Glomerular Filtration Rate 35.3L, Lactic Acid Level 3.3*H, Calcium Level 8.9, Total Bilirubin 0.8, Direct Bilirubin 0.3H, Aspartate Amino Transf (AST/SGOT) 33, Alanine Aminotransferase (ALT/SGPT) 23, Alkaline Phosphatase 74, Ammonia 23, Total Creatine Kinase 725H, Creatine Kinase MB 4.2H, Creatine Kinase MB Relative Index 0.58, Troponin I 0.39H, Total Protein 7.0, Albumin 3.9, Albumin/Globulin Ratio 1.3, Thyroid Stimulating Hormone (TSH) 0.909, Salicylates Level < 1.7L, Acetaminophen Level < 2.0L, Ethyl Alcohol Level < 0.003 CBC/BMP Laboratory Tests 06/13/20 14:06 Microbiology Microbiology 06/13/20 Blood Culture, Received Pending 06/13/20 Blood Culture, Received Pending Allergies Coded Allergies: zolpidem (Verified Adverse Reaction, Intermediate, BECOMES BELLIGERENT AND MEAN, 06/08/19) Home Medications Scheduled Bisoprolol Fumarate (Bisoprolol Fumarate) 10 Mg Tablet, 10 MG PO BID, (Reported) Diltiazem HCl (Diltiazem 24Hr ER) 120 Mg Cap.er.24h, 120 MG PO DAILY, (Reported) Fluticasone Propionate (Flonase Allergy Relief) 9.9 Ml [place].susp, 2 SPRAY NARES DAILY, (Reported) Furosemide (Furosemide) 80 Mg Tablet, 80 MG PO DAILY, (Reported) Gabapentin (Gabapentin) 300 Mg Capsule, 300 MG PO TID, (Reported) Garlic (Garlic) 1 Each Tablet, 150 MG PO DAILY, (Reported) L.acidoph/L.bulg/B.bif/S.therm ([place]-Bid Caplet) 1 Each Tablet, 1 EA PO BIDWM for 42 Days, #42 Levofloxacin (Levaquin) 750 Mg Tablet, 750 MG PO DAILY@06 for 42 Days, #42 Do not take with antacids, iron, dairy products, or magnesium. It will affect absorption Losartan Potassium (Cozaar) 100 Mg Tablet, 100 MG PO DAILY, (Reported) Magnesium Oxide (Magnesium Oxide) 400 Mg Tablet, 400 MG PO BID, (Reported) Metformin HCl (Metformin HCl ER) 500 Mg Tab.er.24h, 1,000 MG PO QHS, (Reported) Multivitamin (Multivitamins) 1 Cap Cap, 1 CAP PO DAILY, (Reported) [place]-3 Fatty Acids/Fish Oil (Fish Oil 1,000 mg Capsule) 1,000 Mg Cap, 1,000 MG PO DAILY, (Reported) Rivaroxaban (Xarelto) 20 Mg Tablet, 20 MG PO DAILY, (Reported) Sitagliptin Phosphate (Januvia) 100 Mg Tablet, 100 MG PO DAILY, (Reported) Spironolactone (Spironolactone) 25 Mg Tablet, 12.5 MG PO DAILY, (Reported) LINNEA JIN DO Jun 13, 2020 17:09
--- NOTE | 2020-06-13 20:09 | REPVR ---
PROCEDURE INFORMATION: Exam: MR Lumbar Spine Without Contrast. Exam date and time: 06/13/2020 7:27 PM Age: 80 years old Clinical indication: Other: Incontinence TECHNIQUE: Imaging protocol: Multiplanar magnetic resonance images of the lumbar spine without intravenous contrast. COMPARISON: MRI-Spine, L.S. without con 10/09/2019 12:13 PM FINDINGS: Vertebrae: The lumbar vertebral bodies are normal in height. Mild retrolisthesis of L3 on L4. Spinal cord: The distal end of the conus medullaris ends at L1-L2, normal in position. Multilevel findings: Degenerative disc disease is noted from L2-L3 through L5-S1, with a decrease in the T2 signal intensity of the discs as well as disc bulge/osteophyte complexes. Mild edema within the L3-L4 and L4-L5 discs as well as the adjacent bone marrow. This is chronic compared to the prior study. L1-L2: No significant narrowing of the thecal sac or neural foramina. L2-L3: Mild bilateral facet arthropathy. No significant narrowing of the thecal sac. Mild bilateral neural foraminal narrowing. L3-L4: Bilateral facet arthropathy with hypertrophy of the ligamentum flavum. Severe narrowing of the thecal sac is again visualized. There is narrowing of both lateral recesses. A right-sided disc herniation/protrusion is identified. There is narrowing of the lateral recesses, right side greater than left. Moderate to severe left and severe right neural foraminal narrowing. L4-L5: Bilateral facet arthropathy with hypertrophy of the ligamentum flavum. Moderate narrowing of the thecal sac, which is stable. There is narrowing of both lateral recesses. There is a broad-based disc bulge/osteophyte complex, with central protrusion. Severe bilateral neural foraminal narrowing. L5-S1: Bilateral facet arthropathy with hypertrophy of the ligamentum flavum. Moderate stable narrowing of the thecal sac. There is narrowing of both lateral recesses. Severe bilateral neural foraminal narrowing. There is compression of the right S1 nerve root within the right lateral recess. Other bones/joints: Mild convexity of the lower lumbar spine to the left. Lymph nodes: Retroperitoneal lymph nodes are identified, some which are mildly enlarged. Soft tissues: Mild edema within the subcutaneous tissues posterior to the lumbar spine. IMPRESSION: 1. Degenerative changes are noted from L2-L3 through L5-S1, as described above. 2. Mild edema within the L3-L4 and L4-L5 discs as well as the adjacent bone marrow. This is chronic compared to the prior study. 3. Moderate stable narrowing of the thecal sac at L4-L5 and L5-S1. There is severe narrowing of the thecal sac again visualized at L3-L4, with a right-sided disc herniation/protrusion. 4. There is compression of the right S1 nerve root within the right lateral recess at L5-S1. 5. Neural foraminal narrowing visualized from L2-L3 through L5-S1. 6. Mild retrolisthesis of L3 on L4. 7. Retroperitoneal lymph nodes are identified, some which are mildly enlarged. Electronically signed by: Harman Johnson On 06/13/2020 20:09:11 PM
[2020-06-13] MEDS ORDERED: VANCOMYCIN HCL 1,000 MG, VIAL MATE ADAPTER 1 EACH in D5W 250 ML IV ONE (20:30)
--- NOTE | 2020-06-13 21:27 | HPEPDOC ---
General Date of Admission Jun 13, 2020 at 20:40 Date of Service: Jun 13, 2020 Attending Physician: LINNEA JIN DO Chief Complaint The patient is a 80-year-old male admitted with a reason for visit of Sepsis, Spinal Stenosis. Source: Patient Exam Limitations: No limitations History of Present Illness Mr. Blunt is a 80-year-old male with diabetes TYPE II, hypertension, atrial fibrillation, hyperlipidemia who comes to [facility] after an inability to get from the ground and found to have fever and leukocytosis. He tells me at baseline he has trouble moving his left leg. He tells me that he goes to physical therapy to help him with his left leg weakness. He is never had problems with his right leg before. Last night he went to bed around 10:45 PM. Then he told me that he rolled out of bed, fell to the ground, and could not get up. Normally he is able to get up off of the ground. Today he decided to come to the ED because of the leg weakness. While in the ED, his found to have a temperature of 102.7 and leukocytosis of 19.1. They obtained a chest x-ray, which demonstrated no evidence of acute pulmonary disease. We started him on IV fluids and call for admission. When I went on to see the patient, he told me that for a few months he noticed that he has been having urinary incontinence. He describes it as he was not able to make it to the bathroom to urinate, and it comes on once. He also reports t hat he sometimes have fecal incontinence as well. I used a pen to poke his inner thighs and he did not feel that. He does not know how long that has been going on. The only new symptom was weakness in his right leg/right thigh. Otherwise he denied any lightheadedness or dizziness, chest pain, abdominal pain or nausea, or dysuria. He did today he had this paresthesias in his feet. Due to his symptoms, I requested MRI of the LS spine first to look for cauda equine syndrome. After returning, I reached out to orthopedic surgery (Dr. Shaver) and discussed the findings. He looked at the images, and said that this is chronic. Patient would need to follow with spine surgeon outpatient. Patient would need physical therapy for the weakness. Afterwards, I admitted the patient. Home Medications Scheduled Bisoprolol Fumarate (Bisoprolol Fumarate) 10 Mg Tablet, 10 MG PO BID, (Reported) Diltiazem HCl (Diltiazem 24Hr ER) 120 Mg Cap.er.24h, 120 MG PO DAILY, (Reported) Fluticasone Propionate (Flonase Allergy Relief) 9.9 Ml [place].susp, 2 SPRAY NARES DAILY, (Reported) Furosemide (Furosemide) 80 Mg Tablet, 80 MG PO DAILY, (Reported) Gabapentin (Gabapentin) 300 Mg Capsule, 300 MG PO TID, (Reported) Garlic (Garlic) 1 Each Tablet, 150 MG PO DAILY, (Reported) Losartan Potassium (Cozaar) 100 Mg Tablet, 100 MG PO DAILY, (Reported) Magnesium Oxide (Magnesium Oxide) 400 Mg Tablet, 400 MG PO BID, (Reported) Metformin HCl (Metformin HCl ER) 500 Mg Tab.er.24h, 1,000 MG PO QHS, (Reported) Multivitamin (Multivitamins) 1 Cap Cap, 1 CAP PO DAILY, (Reported) [place]-3 Fatty Acids/Fish Oil (Fish Oil 1,000 mg Capsule) 1,000 Mg Cap, 1,000 MG PO DAILY, (Reported) Rivaroxaban (Xarelto) 20 Mg Tablet, 20 MG PO DAILY, (Reported) Sitagliptin Phosphate (Januvia) 100 Mg Tablet, 100 MG PO DAILY, (Reported) Spironolactone (Spironolactone) 25 Mg Tablet, 12.5 MG PO DAILY, (Reported) Allergies Coded Allergies: zolpidem (Verified Adverse Reaction, Intermediate, BECOMES BELLIGERENT AND MEAN, 06/08/19) Past Medical History Medical History 1. Atrial fibrillation. 2. Hypertension. 3. Gout 4. Diabetes 5. Diabetic neuropathy 6. Chronic diastolic heart failure 7. Hypercholesterolemia 8. History of methicillin-resistant staph aureus infection of the left great toe Surgical History 1. Focal cord polyp removal 2. Cholecystectomy 3. Right shoulder arthroscopy 4. Upper lid Blepharoplasties 5. Colonoscopies Family History Father: at the age of 86, history of colon cancer Mother: Diagnosed age of 89, no known medical history, denies diabetes, cancer, or thyroidism in mother. Social History * Smoker: former Smoker ( Former smoker, quit 21 years ago, smoked for a few years but doesn't know for how long, 1 pack per day) Alcohol: occationally Drugs: denies A-FIB/CHADSVASC A-FIB History Current/History of A-Fib/PAF?: Yes Current PO Anticoag Therapy: Yes Review of Systems Constitutional: Reports: Fever, Weakness; Denies: Chills Eyes: Denies: Vision change ENT: Denies: Head Aches, Sore Throat Skin: Reports: Other (left toe ulcer) Pulmonary: Denies: Dyspnea, Cough Cardiovascular: Denies: Chest Pain, Palpitations Gastrointestinal: Reports: Diarrhea (occasionally); Denies: Nausea, Abdominal Pain Genitourinary: Reports: Incontinence; Denies: Dysuria Musculoskeletal: Reports: Other Symptoms (new right thigh weakness) Neurological: Reports: Numbness Psych: Denies: Anxiety, Depression Physical Examination General Exam: Positive: Alert, Cooperative, No Acute Distress Eye Exam: Positive: EOMI; Negative: Sclera icteric ENT Exam: Positive: Atraumatic Neck Exam: Positive: Supple Chest Exam: Positive: Clear to auscultation Heart Exam: Positive: Rate Normal, Regular Rhythm Abdomen Exam: Positive: Normal bowel sounds, Soft; Negative: Tenderness Extremity Exam: Positive: Edema (bilateral pitting) Skin Exam: Positive: Other skin issue (left toe ulcer.) Neuro Exam: Positive: Cranial Nerves 3-12 NL Psych Exam: Positive: Mental status NL, Mood NL Vital Signs Vital Signs Date Time Temp Pulse Resp B/P (MAP) Pulse Ox O2 Delivery O2 Flow Rate FiO2 06/13/20 20:00 64 16 101/51 (68) 95 Room Air 06/13/20 15:27 99.5 Laboratory Data Labs 24H Laboratory Tests 2 06/13/20 13:52: Bedside Glucose (Misc Panel) 123H 06/13/20 13:56: Urine Opiates Screen NEGATIVE, Urine Methadone Screen NEGATIVE, Urine Barbiturates Screen NEGATIVE, Urine Phencyclidine Screen NEGATIVE, Urine Amphetamines Screen NEGATIVE, Urine Benzodiazepines Screen NEGATIVE, Urine Cocaine Metabolite Screen NEGATIVE, Urine Cannabinoids Screen NEGATIVE 06/13/20 14:06: Immature Granulocyte % (Auto) 1.2, Neutrophils (%) (Auto) 82.8H, Lymphocytes (%) (Auto) 7.8L, Monocytes (%) (Auto) 7.9H, Eosinophils (%) (Auto) 0.0, Basophils (%) (Auto) 0.3, Neutrophils # (Auto) 15.8H, Lymphocytes # (Auto) 1.5, Monocytes # (Auto) 1.5H, Eosinophils # (Auto) 0.0, Basophils # (Auto) 0.1, Nucleated Red Blood Cells % (auto) 0.0, Prothrombin Time 37.3H, Prothromb Time International Ratio 3.67, Urine Color YELLOW, Urine Appearance CLEAR, Urine pH 6.0, Urine Specific [place] 1.011, Urine Protein NEGATIVE, Urine Glucose (UA) NEGATIVE, Urine Ketones NEGATIVE, Urine Blood NEGATIVE, Urine Nitrite NEGATIVE, Urine Bilirubin NEGATIVE, Urine Urobilinogen 0.2, Urine Leukocyte Esterase NEGATIVE, Urine WBC (Auto) 0, Urine RBC (Auto) 5H, Urine Hyaline Casts (Auto) 4, Urine Bacteria (Auto) NEGATIVE, Urine Squamous Epithelial Cells 0, Urine Mucus (Auto) SMALL, Urine Sperm (Auto) , Blood Gas Bicarbonate Standard 23.3, Venous Blood pH 7.416, Venous Blood Partial Pressure CO2 36.7L, Venous Blood Partial Pressure O2 48.8, Venous Blood Total Carbon Dioxide 24.2, Venous Blood HCO3 23.1, Venous Blood Oxygen Saturation 84.5H, Venous Blood Base Excess -1.2, Anion Gap 7L, Glomerular Filtration Rate 35.3L, Lactic Acid Level 3.3*H, Calcium Level 8.9, Total Bilirubin 0.8, Direct Bilirubin 0.3H, Aspartate Amino Transf (AST/SGOT) 33, Alanine Aminotransferase (ALT/SGPT) 23, Alkaline Phosphatase 74, Ammonia 23, Total Creatine Kinase 725H, Creatine Kinase MB 4.2H, Creatine Kinase MB Relative Index 0.58, Troponin I 0.39H, Total Protein 7.0, Albumin 3.9, Albumin/Globulin Ratio 1.3, Thyroid Stimulating Hormone (TSH) 0.909, Salicylates Level < 1.7L, Acetaminophen Level < 2.0L, Ethyl Alcohol Level < 0.003 06/13/20 19:54: Bedside Glucose (Misc Panel) 117H 06/13/20 20:03: Lactic Acid Level 1.2, Troponin I 0.38H CBC/BMP Laboratory Tests 06/13/20 14:06 Microbiology Microbiology 06/13/20 Blood Culture, Received Pending 06/13/20 Blood Culture, Received Pending Assessment/Plan Mr. Blunt is a 80-year-old male with diabetes mellitus type 2, hypertension, atrial fibrillation on Xarelto, and hyperlipidemia who comes to [facility] for right leg weakness, but then was found to have fever and leukocytosis. Etiology is not clear, chest x-ray clear and UA was unremarkable. Left toe ulcer was mildly dry. We will try wound culture of it. Blood cultures 2 have been obtained. Patient will be on broad-spectrum antibiotics with vancomycin and Zosyn and IV fluids. Otherwise, MRI shows chronic changes of the lumbar spine. I spoke with orthopedic surgery, Dr. Shaver. Recommended outpatient follow-up and physical therapy. Plan / VTE VTE Prophylaxis Ordered?: Yes Plan Plan 1. Spinal stenosis Patient tells me that he has had both urinary incontinence and fecal in continence. Today he developed new right leg weakness. Specifically, he history of a lifting his right thigh. Before he had trouble with his left leg and never had problems with his right MRI: Moderate stable narrowing of the thecal sac at L4-L5 and L5-S1. There is severe narrowing of the thecal sac again visualized at L3-L4, with a right-sided disc herniation/protrusion. There is compression of the right S1 nerve root within the right lateral recess at L5-S1 -Spoke with orthopedic surgery, Dr. Shaver. He felt that this was chronic old changes. Recommended outpatient follow-up and physical therapy. 2. Sepsis Patient meets 2 out of 4 SIRS criteria with a fever of 102.7F and a leukocytos is of 19.1. Patient meets 0 out of 3 qsofa criteria Chest x-ray is clear, UA is pending, left toe ulcer does not have any exudates. Left toe ulcer is mostly dry, Unknown source, we will treat broadly with vancomycin and Zosyn. Patient does have history of left toe MRSA infection. Left toe does not appear to have cellulitis, the patient will be on vancomycin. 3. Lactic acidosis Patient is on metformin at home Blood pressure is stable, last blood pressure reading was 142/64 Lactic acidosis may be secondary to metformin versus sepsis 4. Mildly elevated troponins EKG does not suggest ACS. Troponin elevated at 0.39 May be an organ damage from sepsis versus poor clearance from kidneys Monitor every 6 hours until troponin started to decline 5. CKD versus GEOVANY Unknown baseline. Last creatinine was in December 2019. Creatinine was 1.37 at that time Creatinine on admission is 1.96 May be an organ damage from sepsis Patient will be receiving fluids 6. Diabetes mellitus Metformin and Januvia will be held. Patient on a sliding scale insulin and a carb consistent diet. 7. Hypertension Because there is a concern for sepsis, antihypertensives will be held as well as diuretics. Holding losartan, diltiazem, and frusemide 8. Atrial fibrillation Continue Xarelto. Due to hypotension holding beta aundrea and calcium channel aundrea. 9. DVT prophylaxis On Xarelto LINNEA JIN DO Jun 13, 2020 21:27
[2020-06-13 22:15] VITALS: BP 110/57
[2020-06-13] MEDS: MAGNESIUM OXIDE 400 MG TAB (MAG-OX) PO SCH (22:36)
[2020-06-13] MEDS: GABAPENTIN 300 MG CAP PO SCH (22:36)
[2020-06-13] MEDS ORDERED: VANCOMYCIN HCL 500 MG in D5W MINI-BAG PLUS 100 ML IV ONE (23:30)
[2020-06-14] VITALS: BP 107/52
[2020-06-14] MEDS: PIPERACILLIN/TAZOBACTAM SOD 2.25 GM in D5W MINI-BAG PLUS 50 ML IV SCH ×4 (02:00→21:47)
[2020-06-14 04:00] VITALS: BP 113/58
[2020-06-14 08:00] VITALS: BP 136/61
[2020-06-14 08:18] LABS: HEMATOCRIT 26.7 % (42.0-52.0); HEMOGLOBIN 8.9 g/dl (13.5-17.5); MEAN CORPUSCULAR HGB CONC 33.3 g/dl (32.0-36.5); PLATELET COUNT, AUTOMATED 184 10^3/uL (150-450); RED BLOOD COUNT 2.78 10^6/uL (4.30-6.10); WHITE BLOOD COUNT 11.3 10^3/uL (4.0-10.0)
[2020-06-14 08:52] LABS: CALCIUM LEVEL 8.3 MG/DL (8.8-10.2); CREATININE FOR GFR 1.78 MG/DL (0.70-1.30); GLOMERULAR FILTRATION RATE 39.4 (>42); POTASSIUM SERUM 3.9 MEQ/L (3.5-5.1); TROPONIN I 0.27 NG/ML (< 0.10)
--- NOTE | 2020-06-14 08:54 | REPVR ---
PROCEDURE INFORMATION: Exam: CT Abdomen And Pelvis Without Contrast Exam date and time: 06/14/2020 8:30 AM Age: 80 years old Clinical indication: Fever; Additional info: Fever unknown origin (looking for abscess) TECHNIQUE: Imaging protocol: Computed tomography of the abdomen and pelvis without contrast. Radiation optimization: All CT scans at this facility use at least one of these dose optimization techniques: automated exposure control; mA and/or kV adjustment per patient size (includes targeted exams where dose is matched to clinical indication); or iterative reconstruction. COMPARISON: CT ABD PELVIS W/O CONTRAST 10/09/2019 8:07 AM FINDINGS: Coronary arteries: Moderate coronary artery calcification. Liver: Hypodense lesion in the inferior prior right hepatic lobe measuring 7 mm. (Series 201, image 44). Gallbladder and bile ducts: Status post cholecystectomy. CBD measures 11 mm in diameter. Pancreas: Normal. No ductal dilation. Spleen: Normal. No splenomegaly. Adrenals: Normal. No mass. Kidneys and ureters: Exophytic circumscribed hypodense lesion in the upper pole of the left kidney measuring 10 mm. Hyperdense lesion in the lower pole of the left kidney measuring 9 mm. No hydronephrosis bilaterally. Nonspecific perinephric stranding bilaterally. Stomach and bowel: Severe stool in the colon. Sigmoid diverticulosis without diverticulitis. No abnormal bowel dilatation. No abnormal bowel wall thickening. Appendix: Appendix is normal. Intraperitoneal space: Unremarkable. No free air. No significant fluid collection. Vasculature: Severe calcified atherosclerotic disease. No aortic aneurysm. Lymph nodes: Unremarkable. No enlarged lymph nodes. Urinary bladder: 2 x 3 mm loose stone in the right base of the bladder. No bladder wall thickening. Reproductive: Prostate is normal in size. Bones/joints: Severe degenerative spine. No acute fracture. Moderate degenerative changes of hips bilaterally. Soft tissues: Unremarkable. IMPRESSION: 1. Colonic diverticulosis without diverticulitis. 2. Hypodense lesion in the inferior prior right hepatic lobe. No change from prior. No follow-up is necessary. 3. Dilated CBD. No change from prior. 4. Hypodense lesions in the left kidney. Consistent with cyst. No change from prior. No follow-up is necessary. 5. Hypodense lesion in the lower pole of the left kidney. Consistent with hyperdense renal cyst. No follow-up is necessary. 6. Loose stone in the right base of the bladder. No change from prior. 7. Additional findings as described. Electronically signed by: Fazal Edwards On 06/14/2020 08:54:19 AM
[2020-06-14] MEDS ORDERED: FLUBLOK(EGG FREE)(QUAD)INFLUENZA VACC 0.5ML SYRINGE 18YRS & OLDER IM ONE (09:00)
[2020-06-14] MEDS: GABAPENTIN 300 MG CAP PO SCH ×3 (09:11→21:47)
[2020-06-14] MEDS: RIVAROXABAN 20 MG TAB (XARELTO) PO SCH (09:11)
[2020-06-14] MEDS: MAGNESIUM OXIDE 400 MG TAB (MAG-OX) PO SCH ×2 (09:11→21:47)
[2020-06-14] MEDS: FLUTICASONE PROP 0.05% NASAL SPRAY 16 GM (FLONASE) NARES SCH (09:12)
[2020-06-14] MEDS: VANCOMYCIN HCL 1,000 MG, VIAL MATE ADAPTER 1 EACH in D5W 250 ML IV SCH (10:26)
[2020-06-14 12:00] VITALS: BP 127/60
[2020-06-14] MEDS: HumaLOG INSULIN (NovoLOG) PER UNIT SC SCH ×3 (12:34→21:00)
[2020-06-14] MEDS: NS 1,000 ML IV SCH (14:48)
[2020-06-14 16:00] VITALS: BP 127/71
[2020-06-14 20:00] VITALS: BP 154/70
--- NOTE | 2020-06-14 20:06 | IPNPDOC ---
Subjective Date Seen The patient was seen on 06/14/20. Subjective Chief Complaint/HPI Mr. Blunt is a 80-year-old male with diabetes TYPE II, hypertension, atrial fibrillation, hyperlipidemia who comes to [facility] after an inability to get from the ground and found to have fever and leukocytosis. Both the chest x-ray and the urinalysis was unremarkable. Ordered a CT of abdomen and pelvis which did not demonstrate any source of infection. Otherwise no fever overnight and leukocytes have been improving with antibiotics. One blood culture did come back positive with gram-positive cocci clusters. Otherwise, daughter came to visit. Discussed results with daughter. Constitutional: Denies: Chills, Fever ENT: Denies: Head Aches Pulmonary: Denies: Dyspnea Cardiovascular: Denies: Chest Pain Gastrointestinal: Reports: Constipation; Denies: Nausea, Abdominal Pain Genitourinary: Denies: Dysuria Objective Physical Examination General Exam: Positive: Alert, Cooperative, No Acute Distress Eye Exam: Positive: EOMI; Negative: Sclera icteric ENT Exam: Positive: Atraumatic Neck Exam: Positive: Supple Chest Exam: Positive: Clear to auscultation Heart Exam: Positive: Rate Normal, Regular Rhythm Abdomen Exam: Positive: Normal bowel sounds, Soft; Negative: Tenderness Extremity Exam: Positive: Edema (bilateral pitting) Skin Exam: Positive: Other skin issue (left toe ulcer.) Neuro Exam: Positive: Cranial Nerves 3-12 NL Psych Exam: Positive: Mental status NL, Mood NL Assessment /Plan Assessment Mr. Blunt is a 80-year-old male with diabetes mellitus type 2, hypertension, atrial fibrillation on Xarelto, and hyperlipidemia who comes to [facility] for right leg weakness, but then was found to have fever and leukocytosis. Etiology is not clear, chest x-ray clear, UA was unremarkable, CT of abdomen and pelvis did not demonstrate any abscess. Left toe ulcer was mildly dry. We will try wound culture of it. Blood cultures 2 have been obtained, pending results. Patient will be on broad-spectrum antibiotics with vancomycin and Zosyn and IV fluids. I spoke with orthopedic surgery, Dr. Shaver, about MRI of the lumbar spine. It is chronic. Recommended outpatient follow-up and physical therapy. Plan/VTE VTE Prophylaxis Ordered?: Yes Plan 1. Spinal stenosis Patient tells me that he has had both urinary incontinence and fecal incontinence. Today he developed new right leg weakness. Specifically, he hi story of a lifting his right thigh. Before he had trouble with his left leg and never had problems with his right MRI: Moderate stable narrowing of the thecal sac at L4-L5 and L5-S1. There is severe narrowing of the thecal sac again visualized at L3-L4, with a right-sided disc herniation/protrusion. There is compression of the right S1 nerve root within the right lateral recess at L5-S1 -Spoke with orthopedic surgery, Dr. Shaver. He felt that this was chronic old changes. Recommended outpatient follow-up and physical therapy. 2. Sepsis Patient meets 2 out of 4 SIRS criteria with a fever of 102.7F and a leukocytosis of 19.1. Patient meets 0 out of 3 qsofa criteria Chest x-ray is clear, UA is unremarkable, CT abdomen and pelvis did not demonstrate any abscess, left toe ulcer does not have any exudates. Left toe ulcer is mostly dry, Unknown source, we will treat broadly with vancomycin and Zosyn. Patient does have history of left toe MRSA infection. Left toe does not appear to have cellulitis, the patient will be on vancomycin. 3. Lactic acidosis Patient is on metformin at home Blood pressure is stable, last blood pressure reading was 142/64 Lactic acidosis may be secondary to metformin versus sepsis 4. Mildly elevated troponins EKG does not suggest ACS. Troponin elevated at 0.39, down trended to 0.27 May be an organ damage from sepsis versus poor clearance from kidneys 5. CKD versus GEOVANY Unknown baseline. Last creatinine was in December 2019. Creatinine was 1.37 at that time Creatinine on admission is 1.96 May be an organ damage from sepsis Patient will be receiving fluids 6. Diabetes mellitus Metformin and Januvia will be held. Patient on a sliding scale insulin and a carb consistent diet. 7. Hypertension Because there is a concern for sepsis, antihypertensives will be held as well as diuretics. Holding losartan, diltiazem, and frusemide Blood pressure well controlled off antihypertensives and diuretics 8. Atrial fibrillation Continue Xarelto. Due to hypotension holding beta aundrea and calcium channel aundrea. 9. DVT prophylaxis On Xarelto VS, I&O, 24H, Fishbone Vital Signs/I&O Vital Signs Date Time Temp Pulse Resp B/P (MAP) Pulse Ox O2 Delivery O2 Flow Rate FiO2 06/14/20 16:00 98.1 82 16 127/71 (89) 97 Room Air I&O- Last 24 Hours up to 6 AM 06/14/20 06:00 Intake Total 2275 ml Output Total 400 ml Balance 1875 ml Laboratory Data 24H LABS Laboratory Tests 2 06/13/20 20:03: Lactic Acid Level 1.2, Troponin I 0.38H 06/13/20 22:28: Methicillin-Resist S.aureus DNA PCR NOT DETECTED 06/14/20 01:54: Troponin I 0.35H 06/14/20 08:05: Troponin I 0.27#H, Nucleated Red Blood Cells % (auto) 0.0, Anion Gap 7L, Glomerular Filtration Rate 39.4L, Calcium Level 8.3L, Total Creatine Kinase 793H 06/14/20 12:10: Bedside Glucose (Misc Panel) 115H 06/14/20 18:00: Bedside Glucose (Misc Panel) 159H CBC/BMP Laboratory Tests 06/14/20 08:05 Microbiology Microbiology 06/13/20 Gram Stain - Final, Resulted 06/13/20 Wound Culture, Resulted Pending 06/13/20 Blood Culture - Preliminary, Resulted No growth after 24 hours . All specim... 06/13/20 Blood Culture - Preliminary, Resulted LINNEA JIN DO Jun 14, 2020 20:06
[2020-06-14] MEDS: DOCUSATE SODIUM 100 MG CAP PO SCH (21:47)
[2020-06-15] VITALS: BP 138/78
[2020-06-15] MEDS: PIPERACILLIN/TAZOBACTAM SOD 2.25 GM in D5W MINI-BAG PLUS 50 ML IV SCH ×3 (02:19→18:00)
[2020-06-15 04:00] VITALS: BP 134/82
[2020-06-15 06:15] LABS: HEMATOCRIT 26.1 % (42.0-52.0); HEMOGLOBIN 8.6 g/dl (13.5-17.5); MEAN CORPUSCULAR HEMOGLOBIN 31.6 pg (27.0-33.0); PLATELET COUNT, AUTOMATED 192 10^3/uL (150-450); RED BLOOD COUNT 2.72 10^6/uL (4.30-6.10); WHITE BLOOD COUNT 10.2 10^3/uL (4.0-10.0)
[2020-06-15 06:24] LABS: CALCIUM LEVEL 8.1 MG/DL (8.8-10.2); CREATININE FOR GFR 1.45 MG/DL (0.70-1.30); POTASSIUM SERUM 4.1 MEQ/L (3.5-5.1)
[2020-06-15] MEDS: NS 1,000 ML IV SCH (06:57)
[2020-06-15 08:00] VITALS: BP 146/65
[2020-06-15] MEDS: RIVAROXABAN 20 MG TAB (XARELTO) PO SCH (10:06)
[2020-06-15] MEDS: HumaLOG INSULIN (NovoLOG) PER UNIT SC SCH ×4 (10:06→20:58)
[2020-06-15] MEDS: GABAPENTIN 300 MG CAP PO SCH ×3 (10:06→20:57)
[2020-06-15] MEDS: DOCUSATE SODIUM 100 MG CAP PO SCH ×2 (10:06→20:57)
[2020-06-15] MEDS: FLUTICASONE PROP 0.05% NASAL SPRAY 16 GM (FLONASE) NARES SCH (10:07)
[2020-06-15] MEDS: MAGNESIUM OXIDE 400 MG TAB (MAG-OX) PO SCH ×2 (10:07→20:55)
[2020-06-15] MEDS: VANCOMYCIN HCL 1,000 MG, VIAL MATE ADAPTER 1 EACH in D5W 250 ML IV SCH (10:15)
[2020-06-15 11:32] LABS: VANCOMYCIN RANDOM 10.5 UG/ML
[2020-06-15 12:00] VITALS: BP 140/70
[2020-06-15] MEDS ORDERED: VANCOMYCIN HCL 500 MG in D5W MINI-BAG PLUS 100 ML IV SCH (13:30)
[2020-06-15] MEDS ORDERED: VANCOMYCIN HCL 500 MG in D5W MINI-BAG PLUS 100 ML IV ONE (13:30)
[2020-06-15] MEDS: MIRALAX *UNIT DOSE* 17GM PACKET PO SCH (13:59)
[2020-06-15 16:00] VITALS: BP 150/70
--- NOTE | 2020-06-15 19:41 | IPNPDOC ---
Subjective Date Seen The patient was seen on 06/15/20. Subjective Chief Complaint/HPI Mr. Blunt is a 80-year-old male with diabetes TYPE II, hypertension, atrial fibrillation, hyperlipidemia who comes to [facility] after an inability to get from the ground and found to have fever and leukocytosis. This morning, he denies any fever/chills, chest pain, dyspnea, abdominal pain, or dysuria. Constitutional: Denies: Chills, Fever Pulmonary: Denies: Dyspnea Cardiovascular: Denies: Chest Pain Gastrointestinal: Denies: Nausea, Abdominal Pain Genitourinary: Denies: Dysuria Objective Physical Examination General Exam: Positive: Alert, Cooperative, No Acute Distress Eye Exam: Positive: EOMI; Negative: Sclera icteric ENT Exam: Positive: Atraumatic Neck Exam: Positive: Supple Chest Exam: Positive: Clear to auscultation Heart Exam: Positive: Rate Normal, Regular Rhythm Abdomen Exam: Positive: Normal bowel sounds, Soft; Negative: Tenderness Extremity Exam: Positive: Edema (bilateral pitting) Skin Exam: Positive: Other skin issue (left toe ulcer.) Neuro Exam: Positive: Cranial Nerves 3-12 NL Psych Exam: Positive: Mental status NL, Mood NL Assessment /Plan Assessment Mr. Blunt is a 80-year-old male with diabetes mellitus type 2, hypertension, atrial fibrillation on Xarelto, and hyperlipidemia who comes to [facility] for right leg weakness, but then was found to have fever and leukocytosis. Etiology is not clear, chest x-ray clear, UA was unremarkable, CT of abdomen and pelvis did not demonstrate any abscess. Left toe ulcer was mildly dry. We will try wound culture of it. Blood cultures 2 have been obtained, pending results. Patient will be on broad-spectrum antibiotics with vancomycin and Zosyn and IV fluids. I spoke with orthopedic surgery, Dr. Shaver, about MRI of the lumbar spine. It is chronic. Recommended outpatient follow-up and physical therapy. Plan/VTE VTE Prophylaxis Ordered?: Yes Plan 1. Spinal stenosis Patient tells me that he has had both urinary incontinence and fecal incontinence. Today he developed new right leg weakness. Specifically, he history of a lifting his right thigh. Before he had trouble with his left leg and never had problems with his right MRI: Moderate stable narrowing of the thecal sac at L4-L5 and L5-S1. There is severe narrowing of the thecal sac again visualized at L3-L4, with a right-sided disc herniation/protrusion. There is compression of the right S1 nerve root within the right lateral recess at L5-S1 -Spoke with orthopedic surgery, Dr. Shaver. He felt that this was chronic old changes. Recommended outpatient follow-up and physical therapy. 2. Sepsis Patient meets 2 out of 4 SIRS criteria with a fever of 102.7F and a leukocytosis of 19.1. Patient meets 0 out of 3 qsofa criteria Chest x-ray is clear, UA is unremarkable, CT abdomen and pelvis did not demonstrate any abscess, left toe ulcer does not have any exudates. Left toe ulcer is mostly dry, Unknown source, we will treat broadly with vancomycin and Zosyn. Patient does have history of left toe MRSA infection. Left toe does not appear to have cellulitis, the patient will be on vancomycin. - Vital signs improve. No fever for more than 48 hours. Continue to monitor 3. Lactic acidosis Patient is on metformin at home Blood pressure is stable, last blood pressure reading was 142/64 Lactic acidosis may be secondary to metformin versus sepsis -Resolved 4. Mildly elevated troponins EKG does not suggest ACS. Troponin elevated at 0.39, down trended to 0.27 May be an organ damage from sepsis versus poor clearance from kidneys 5. CKD versus GEOVANY Unknown baseline. Last creatinine was in December 2019. Creatinine was 1.37 at that time Creatinine on admission is 1.96 May be an organ damage from sepsis Patient will be receiving fluids 6. Diabetes mellitus Metformin and Januvia will be held. Patient on a sliding scale insulin and a carb consistent diet. 7. Hypertension Because there is a concern for sepsis, antihypertensives will be held as well as diuretics. -Blood pressure increasing, Will restart losartan 8. Atrial fibrillation Continue Xarelto. Due to hypotension holding beta aundrea and calcium channel aundrea. 9. DVT prophylaxis On Xarelto Dispo: Pending results from blood culture and normalization of WBC. He may need rehab VS, I&O, 24H, Skip Vital Signs/I&O Vital Signs Date Time Temp Pulse Resp B/P (MAP) Pulse Ox O2 Delivery O2 Flow Rate FiO2 06/15/20 16:00 98.5 75 16 150/70 (96) 99 Room Air I&O- Last 24 Hours up to 6 AM 06/15/20 05:59 Intake Total 790 ml Output Total 1775 ml Balance -985 ml Laboratory Data 24H LABS Laboratory Tests 2 06/14/20 20:23: Bedside Glucose (Misc Panel) 135H 06/15/20 05:41: Nucleated Red Blood Cells % (auto) 0.0, Anion Gap 5L, Glomerular Filtration Rate 50.0, Calcium Level 8.1L, Random Vancomycin Level 10.5 06/15/20 11:42: Bedside Glucose (Misc Panel) 164H 06/15/20 17:11: Bedside Glucose (Misc Panel) 102 CBC/BMP Laboratory Tests 06/15/20 05:41 Microbiology Microbiology 06/13/20 Gram Stain - Final, Resulted 06/13/20 Wound Culture, Resulted Pending 06/13/20 Blood Culture - Preliminary, Resulted No Growth after 48 hours. All Specime... 06/13/20 Blood Culture - Preliminary, Resulted LINNEA JIN DO Jun 15, 2020 19:41
[2020-06-15 20:00] VITALS: BP 150/83
[2020-06-15] MEDS: LOSARTAN 50MG TABLET PO SCH (20:57)
[2020-06-16] VITALS: BP 148/80
[2020-06-16] MEDS: NS 1,000 ML IV SCH ×2 (01:36→16:03)
[2020-06-16 04:00] VITALS: BP 147/76
[2020-06-16] MEDS: PIPERACILLIN/TAZOBACTAM SOD 2.25 GM in D5W MINI-BAG PLUS 50 ML IV SCH ×6 (05:30→23:53)
[2020-06-16 05:35] LABS: HEMATOCRIT 23.8 % (42.0-52.0); HEMOGLOBIN 7.9 g/dl (13.5-17.5); MEAN CORPUSCULAR HEMOGLOBIN 31.5 pg (27.0-33.0); MEAN CORPUSCULAR HGB CONC 33.2 g/dl (32.0-36.5); MEAN CORPUSCULAR VOLUME 94.8 fl (80.0-96.0); PLATELET COUNT, AUTOMATED 191 10^3/uL (150-450); RED BLOOD COUNT 2.51 10^6/uL (4.30-6.10); WHITE BLOOD COUNT 8.4 10^3/uL (4.0-10.0)
[2020-06-16 05:54] LABS: BLOOD UREA NITROGEN 18 MG/DL (7-18); CALCIUM LEVEL 8.1 MG/DL (8.8-10.2); CARBON DIOXIDE LEVEL 22 MEQ/L (21-32); CHLORIDE LEVEL 111 MEQ/L (98-107); CREATININE FOR GFR 1.19 MG/DL (0.70-1.30); GLOMERULAR FILTRATION RATE > 60.0 (>42); GLUCOSE, FASTING 118 MG/DL (70-100); POTASSIUM SERUM 4.3 MEQ/L (3.5-5.1); SODIUM LEVEL 139 MEQ/L (136-145)
[2020-06-16 07:28] LABS: VANCOMYCIN RANDOM 7.9 UG/ML
[2020-06-16 08:00] VITALS: BP 160/73
[2020-06-16] MEDS ORDERED: VANCOMYCIN HCL 1,000 MG, VIAL MATE ADAPTER 1 EACH in D5W 250 ML IV SCH (08:00)
[2020-06-16] MEDS: GABAPENTIN 300 MG CAP PO SCH ×3 (08:49→20:29)
[2020-06-16] MEDS: MAGNESIUM OXIDE 400 MG TAB (MAG-OX) PO SCH ×2 (08:50→20:29)
[2020-06-16] MEDS: FLUTICASONE PROP 0.05% NASAL SPRAY 16 GM (FLONASE) NARES SCH (08:50)
[2020-06-16] MEDS: RIVAROXABAN 20 MG TAB (XARELTO) PO SCH (08:51)
[2020-06-16] MEDS: HumaLOG INSULIN (NovoLOG) PER UNIT SC SCH ×4 (08:51→20:23)
[2020-06-16] MEDS: MIRALAX *UNIT DOSE* 17GM PACKET PO SCH (09:00)
[2020-06-16] MEDS: DOCUSATE SODIUM 100 MG CAP PO SCH ×2 (09:00→20:29)
[2020-06-16] MEDS ORDERED: VANCOMYCIN HCL 750 MG, VIAL MATE ADAPTER 1 EACH in D5W 250 ML IV SCH ×6 (10:00)
[2020-06-16] MEDS ORDERED: VANCOMYCIN HCL 500 MG in D5W MINI-BAG PLUS 100 ML IV SCH (11:00)
[2020-06-16 12:00] VITALS: BP 154/98
[2020-06-16 12:45] LABS: HEMOGLOBIN 8.8 g/dl (13.5-17.5); MEAN CORPUSCULAR HEMOGLOBIN 31.7 pg (27.0-33.0); MEAN CORPUSCULAR HGB CONC 32.6 g/dl (32.0-36.5); MEAN CORPUSCULAR VOLUME 97.1 fl (80.0-96.0); PLATELET COUNT, AUTOMATED 210 10^3/uL (150-450); RED BLOOD COUNT 2.78 10^6/uL (4.30-6.10); WHITE BLOOD COUNT 8.4 10^3/uL (4.0-10.0)
[2020-06-16 16:00] VITALS: BP 139/64
--- NOTE | 2020-06-16 17:46 | REPVR ---
PROCEDURE INFORMATION: Exam: MR Left Lower Extremity Without Contrast; Forefoot Exam date and time: 06/16/2020 4:58 PM Age: 80 years old Clinical indication: Condition or disease; Patient HX: Ulcer 1st toe; Additional info: Left foot ulcer, concern for osteomyeleitis. TECHNIQUE: Imaging protocol: MR of the Left foot without intravenous contrast. Exam focused on the forefoot. COMPARISON: No relevant prior studies available. FINDINGS: Limitations: No comparison x-rays. Bones and cartilage: There is a 5 x 3 mm osteolytic defect at the tuft of the 1st distal phalanx (series 901 frame 18 and series 701 frame 17). There is bone marrow edema in the 1st distal phalanx adjacent to the osteolytic lesion (series 401, image 26). There is no evidence of osteomyelitis in the 1st metatarsal or 1st proximal phalanx. The other bones are unremarkable. Joint spaces: Small joint effusions at the 1st MTP joint and IP joint. LIGAMENTS: Collateral ligaments of digits: Unremarkable. No evidence of tear. TENDONS: Flexor tendons of foot: Tenosynovitis of the flexor hallucis longus. There is fluid in the tendon sheath at the midfoot (series 401 frame 23 and series 901 frame 14). Extensor tendons of foot: Unremarkable. No evidence of tear. Soft tissues: There is an ulcer with surrounding cellulitis at the tip of the left great toe. No tendinopathy. There is extensive subcutaneous edema at the dorsal midfoot and forefoot. IMPRESSION: 1. Osteomyelitis in the 1st distal phalanx, where there is an osteolytic defect and bone marrow edema. There is no evidence of osteomyelitis in any of the other bones. 2. There is an ulcer with surrounding cellulitis at the tip of the left great toe. 3. Tenosynovitis of the flexor hallucis longus. Electronically signed by: Mario Monroy On 06/16/2020 17:45:49 PM
--- NOTE | 2020-06-16 19:38 | IPNPDOC ---
Subjective Date Seen The patient was seen on 06/16/20. Subjective Chief Complaint/HPI Mr. Blunt is a 80-year-old male with diabetes TYPE II, hypertension, atrial fibrillation, hyperlipidemia who comes to [facility] after an inability to get from the ground and found to have fever and leukocytosis. This morning, he denies any fever/chills, chest pain, dyspnea, abdominal pain, or dysuria. He went to MRI after wound culture returned positive for pseudomonas. Found to have osteomyelitis of left toe. Constitutional: Denies: Chills, Fever Pulmonary: Denies: Dyspnea Cardiovascular: Denies: Chest Pain Gastrointestinal: Denies: Abdominal Pain Genitourinary: Denies: Dysuria Objective Physical Examination General Exam: Positive: Alert, Cooperative, No Acute Distress Eye Exam: Positive: EOMI; Negative: Sclera icteric ENT Exam: Positive: Atraumatic Neck Exam: Positive: Supple Chest Exam: Positive: Clear to auscultation Heart Exam: Positive: Rate Normal, Irregular Rhythm Abdomen Exam: Positive: Normal bowel sounds, Soft; Negative: Tenderness Extremity Exam: Positive: Edema (bilateral pitting) Skin Exam: Positive: Other skin issue (left toe ulcer.) Neuro Exam: Positive: Cranial Nerves 3-12 NL Psych Exam: Positive: Mental status NL, Mood NL Assessment /Plan Assessment Mr. Blunt is a 80-year-old male with diabetes mellitus type 2, hypertension, atrial fibrillation on Xarelto, and hyperlipidemia who comes to [facility] for right leg weakness, but then was found to have fever and l eukocytosis. Left toe ulcer was cultured and found to grow Pseudomonas. MRI of the foot consistent with cellulitis and osteomyelitis. One blood culture grew staph epi which was contaminant. Tomorrow, would recommend day team to consult ID for osteomyelitis of left toe. Otherwise, in terms of MRI of lumbar spine, I spoke with orthopedic surgery, Dr. Shaver. It is chronic. Recommended outpatient follow-up and physical therapy. Plan/VTE VTE Prophylaxis Ordered?: Yes Plan 1. Spinal stenosis Patient tells me that he has had both urinary incontinence and fecal incontinence. Today he developed new right leg weakness. Specifically, he history of a lifting his right thigh. Before he had trouble with his left leg and never had problems with his right MRI: Moderate stable narrowing of the thecal sac at L4-L5 and L5-S1. There is severe narrowing of the thecal sac again visualized at L3-L4, with a right-sided disc herniation/protrusion. There is compression of the right S1 nerve root within the right lateral recess at L5-S1 -Spoke with orthopedic surgery, Dr. Shaver. He felt that this was chronic old changes. Recommended outpatient follow-up and physical therapy. 2. Sepsis secondary to pseudomonas osteomyelitis and cellulitis of left toe Patient meets 2 out of 4 SIRS criteria with a fever of 102.7F and a leukocytosis of 19.1. Patient meets 0 out of 3 qsofa criteria Chest x-ray is clear, UA is unremarkable, CT abdomen and pelvis did not demonstrate any abscess - Left toe wound culture grew pseudomonas. MRI consistent with cellulitis and osteomyelitis - On Zosyn - Would recommend ID consultation for osteomyelitis 3. Lactic acidosis Patient is on metformin at home Blood pressure is stable, last blood pressure reading was 142/64 Lactic acidosis may be secondary to metformin versus sepsis -Resolved 4. Mildly elevated troponins EKG does not suggest ACS. Troponin elevated at 0.39, down trended to 0.27 May be an organ damage from sepsis versus poor clearance from kidneys 5. CKD versus GEOVANY Unknown baseline. Last creatinine was in December 2019. Creatinine was 1.37 at that time Creatinine on admission is 1.96 May be an organ damage from sepsis Resolving 6. Diabetes mellitus Metformin and Januvia will be held. Patient on a sliding scale insulin and a carb consistent diet. 7. Hypertension -Held during beginning of admission due to sepsis -Blood pressure increasing, Restarted losartan 8. Atrial fibrillation Continue Xarelto. Due to sepsis, held beta aundrea and calcium channel aundrea. -Have not restarted BB or CCB yet, but can consider restarting tomorrow if blood pressure tolerates losartan 9. DVT prophylaxis On Xarelto Dispo: Consider consulting ID for osteomyelitis. Did not pass physical therapy today VS, I&O, 24H, Fishbone Vital Signs/I&O Vital Signs Date Time Temp Pulse Resp B/P (MAP) Pulse Ox O2 Delivery O2 Flow Rate FiO2 06/16/20 16:00 98.3 80 20 139/64 (89) 98 Room Air I&O- Last 24 Hours up to 6 AM 06/16/20 06:00 Intake Total 1520 ml Output Total 2050 ml Balance -530 ml Laboratory Data 24H LABS Laboratory Tests 2 06/15/20 20:52: Bedside Glucose (Misc Panel) 153H 06/16/20 05:04: Nucleated Red Blood Cells % (auto) 0.0, Anion Gap 6L, Glomerular Filtration Rate > 60.0, Calcium Level 8.1L, Random Vancomycin Level 7.9 06/16/20 11:23: Bedside Glucose (Misc Panel) 119H 06/16/20 12:24: Nucleated Red Blood Cells % (auto) 0.0 06/16/20 16:07: Bedside Glucose (Misc Panel) 118H CBC/BMP Laboratory Tests 06/16/20 05:04 06/16/20 12:24 Microbiology Microbiology 06/13/20 Gram Stain - Final, Complete 06/13/20 Wound Culture - Final, Complete Pseudomonas Aeruginosa Staphylococcus Caprae 06/13/20 Blood Culture - Preliminary, Resulted No Growth after 72 hours. All specime... 06/13/20 Blood Culture - Final, Complete Staphylococcus Epidermidis LINNEA JIN DO Jun 16, 2020 19:01
[2020-06-16 20:00] VITALS: BP 165/64
[2020-06-16] MEDS: LOSARTAN 50MG TABLET PO SCH (20:30)
[2020-06-17] VITALS: BP 158/70
[2020-06-17 04:00] VITALS: BP 142/80
[2020-06-17 05:24] LABS: HEMATOCRIT 25.7 % (42.0-52.0); HEMOGLOBIN 8.5 g/dl (13.5-17.5); MEAN CORPUSCULAR HEMOGLOBIN 31.7 pg (27.0-33.0); MEAN CORPUSCULAR HGB CONC 33.1 g/dl (32.0-36.5); MEAN CORPUSCULAR VOLUME 95.9 fl (80.0-96.0); PLATELET COUNT, AUTOMATED 215 10^3/uL (150-450); RED BLOOD COUNT 2.68 10^6/uL (4.30-6.10); WHITE BLOOD COUNT 8.9 10^3/uL (4.0-10.0)
[2020-06-17] MEDS: PIPERACILLIN/TAZOBACTAM SOD 2.25 GM in D5W MINI-BAG PLUS 50 ML IV SCH ×3 (05:29→17:25)
[2020-06-17 05:49] LABS: BLOOD UREA NITROGEN 18 MG/DL (7-18); CALCIUM LEVEL 8.5 MG/DL (8.8-10.2); CARBON DIOXIDE LEVEL 21 MEQ/L (21-32); CHLORIDE LEVEL 113 MEQ/L (98-107); CREATININE FOR GFR 1.09 MG/DL (0.70-1.30); GLOMERULAR FILTRATION RATE > 60.0 (>42); GLUCOSE, FASTING 116 MG/DL (70-100); MAGNESIUM LEVEL 2.3 MG/DL (1.8-2.4); POTASSIUM SERUM 4.5 MEQ/L (3.5-5.1); SODIUM LEVEL 139 MEQ/L (136-145)
[2020-06-17 08:00] VITALS: BP 152/64
[2020-06-17] MEDS: NS 1,000 ML IV SCH ×3 (09:02→23:31)
[2020-06-17] MEDS: FLUTICASONE PROP 0.05% NASAL SPRAY 16 GM (FLONASE) NARES SCH (09:05)
[2020-06-17] MEDS: HumaLOG INSULIN (NovoLOG) PER UNIT SC SCH ×4 (09:05→20:24)
[2020-06-17] MEDS: MIRALAX *UNIT DOSE* 17GM PACKET PO SCH (09:06)
[2020-06-17] MEDS: MAGNESIUM OXIDE 400 MG TAB (MAG-OX) PO SCH ×2 (09:06→20:33)
[2020-06-17] MEDS: DOCUSATE SODIUM 100 MG CAP PO SCH (09:06)
[2020-06-17] MEDS: GABAPENTIN 300 MG CAP PO SCH ×3 (09:06→20:34)
[2020-06-17] MEDS: RIVAROXABAN 20 MG TAB (XARELTO) PO SCH (09:06)
[2020-06-17 09:45] LABS: HEMOGLOBIN A1c 5.9 %
[2020-06-17 12:00] VITALS: BP 142/58
[2020-06-17 16:00] VITALS: BP 156/62
[2020-06-17 20:00] VITALS: BP 152/75
[2020-06-17] MEDS: LOSARTAN 50MG TABLET PO SCH (20:34)
[2020-06-18] VITALS (7 sets, daily range): BP systolic 125–157; BP diastolic 63–87
[2020-06-18 05:23] LABS: HEMATOCRIT 26.2 % (42.0-52.0); HEMOGLOBIN 8.6 g/dl (13.5-17.5); MEAN CORPUSCULAR HEMOGLOBIN 31.6 pg (27.0-33.0); MEAN CORPUSCULAR HGB CONC 32.8 g/dl (32.0-36.5); MEAN CORPUSCULAR VOLUME 96.3 fl (80.0-96.0); PLATELET COUNT, AUTOMATED 246 10^3/uL (150-450); RED BLOOD COUNT 2.72 10^6/uL (4.30-6.10); WHITE BLOOD COUNT 9.8 10^3/uL (4.0-10.0)
[2020-06-18] MEDS: LevoFLOXacin 750 MG TABLET PO SCH (05:23)
[2020-06-18 05:47] LABS: BLOOD UREA NITROGEN 17 MG/DL (7-18); CALCIUM LEVEL 8.3 MG/DL (8.8-10.2); CARBON DIOXIDE LEVEL 21 MEQ/L (21-32); CHLORIDE LEVEL 114 MEQ/L (98-107); CREATININE FOR GFR 1.04 MG/DL (0.70-1.30); GLOMERULAR FILTRATION RATE > 60.0 (>42); GLUCOSE, FASTING 123 MG/DL (70-100); POTASSIUM SERUM 4.4 MEQ/L (3.5-5.1); SODIUM LEVEL 142 MEQ/L (136-145)
--- NOTE | 2020-06-18 07:43 | IPN ---
DATE: 06/17/2020 SUBJECTIVE: Hernan is seen rounding for the hospitalist. Impingement with inability to get off the ground, found to have fever and leukocytosis. Ultimately found to have osteomyelitis of his left great toe. He is on Zosyn and Vancomycin for this. Overall he is feeling better, no fever, no chills. Feels his strength is improving. PHYSICAL EXAMINATION: Vital signs: Blood pressure 142/80, pulse 86, respiratory rate 20, 96% O2 saturation. General: Pleasant, alert, conversant, no distress. Lungs are clear. Heart regular rate and rhythm. Abdomen is soft and nontender. No peripheral edema. Leg is dressed. Neurologic exam is at baseline. LABS: White count 8.9, hemoglobin 8.5, platelets 215. Sodium 139, potassium 4.5, BUN 18, creatinine 1.0, glucose 116. IMPRESSION: 1. Osteomyelitis left great toe. Vancomycin and Zosyn ordered. Infectious Disease consult ordered. Case discussed with Dr. Kapadia. 2. Spinal stenosis. He has been seen by orthopedics with plan for outpatient followup. 3. Mildly elevated troponin probably secondary to decreased renal clearance. 4. Chronic kidney disease with acute kidney injury. This resolved with hydration. I discontinued his IV fluids. MTDD
[2020-06-18] MEDS: MIRALAX *UNIT DOSE* 17GM PACKET PO SCH (08:31)
[2020-06-18] MEDS: FLUTICASONE PROP 0.05% NASAL SPRAY 16 GM (FLONASE) NARES SCH (08:31)
[2020-06-18] MEDS: HumaLOG INSULIN (NovoLOG) PER UNIT SC SCH ×4 (08:31→19:59)
[2020-06-18] MEDS: MAGNESIUM OXIDE 400 MG TAB (MAG-OX) PO SCH ×2 (08:32→20:21)
[2020-06-18] MEDS: LACTOBACILLUS ACIDOPHILUS CAP (BACID) PO SCH ×2 (08:32→18:01)
[2020-06-18] MEDS: RIVAROXABAN 20 MG TAB (XARELTO) PO SCH (08:32)
[2020-06-18] MEDS: GABAPENTIN 300 MG CAP PO SCH ×3 (08:32→20:22)
[2020-06-18] MEDS ORDERED: SLF 3 ML SYR IV PRN (10:45)
[2020-06-18] MEDS: SLF 3 ML SYR IV SCH ×2 (13:11→20:22)
[2020-06-18] MEDS: FUROSEMIDE 80 MG TAB PO SCH (18:01)
[2020-06-18] MEDS: LOSARTAN 50MG TABLET PO SCH (20:22)
[2020-06-19] VITALS: BP 140/71
[2020-06-19 04:00] VITALS: BP 140/81
[2020-06-19] MEDS: SLF 3 ML SYR IV SCH ×2 (05:07→14:43)
[2020-06-19] MEDS: LevoFLOXacin 750 MG TABLET PO SCH (05:07)
[2020-06-19 05:25] LABS: HEMATOCRIT 23.4 % (42.0-52.0); HEMOGLOBIN 7.9 g/dl (13.5-17.5); MEAN CORPUSCULAR HEMOGLOBIN 32.1 pg (27.0-33.0); MEAN CORPUSCULAR HGB CONC 33.8 g/dl (32.0-36.5); MEAN CORPUSCULAR VOLUME 95.1 fl (80.0-96.0); PLATELET COUNT, AUTOMATED 249 10^3/uL (150-450); RED BLOOD COUNT 2.46 10^6/uL (4.30-6.10); WHITE BLOOD COUNT 8.1 10^3/uL (4.0-10.0)
[2020-06-19 05:52] LABS: BLOOD UREA NITROGEN 18 MG/DL (7-18); CALCIUM LEVEL 8.5 MG/DL (8.8-10.2); CARBON DIOXIDE LEVEL 23 MEQ/L (21-32); CHLORIDE LEVEL 113 MEQ/L (98-107); CREATININE FOR GFR 1.09 MG/DL (0.70-1.30); GLOMERULAR FILTRATION RATE > 60.0 (>42); GLUCOSE, FASTING 116 MG/DL (70-100); POTASSIUM SERUM 4.3 MEQ/L (3.5-5.1); SODIUM LEVEL 143 MEQ/L (136-145)
[2020-06-19 08:00] VITALS: BP 148/88
[2020-06-19] MEDS: MAGNESIUM OXIDE 400 MG TAB (MAG-OX) PO SCH (08:05)
[2020-06-19] MEDS: FLUTICASONE PROP 0.05% NASAL SPRAY 16 GM (FLONASE) NARES SCH (08:05)
[2020-06-19] MEDS: MIRALAX *UNIT DOSE* 17GM PACKET PO SCH (08:05)
[2020-06-19] MEDS: GABAPENTIN 300 MG CAP PO SCH ×2 (08:05→15:07)
[2020-06-19] MEDS: LACTOBACILLUS ACIDOPHILUS CAP (BACID) PO SCH (08:05)
[2020-06-19] MEDS: RIVAROXABAN 20 MG TAB (XARELTO) PO SCH (08:05)
[2020-06-19] MEDS: HumaLOG INSULIN (NovoLOG) PER UNIT SC SCH ×2 (08:06→11:24)
[2020-06-19] MEDS: FUROSEMIDE 80 MG TAB PO SCH (08:06)
--- NOTE | 2020-06-19 09:55 | IPN ---
DATE: 06/18/2020 SUBJECTIVE: Hernan is doing well. Apparently he was seen by Infectious Disease yesterday and was changed to Levaquin. He lives alone and I am not sure he has a lot of social support. His recently. He denies any fevers or chills. He is participating in physical therapy. PHYSICAL EXAMINATION: Vital signs: Blood pressure 157/87, pulse 60, respiratory rate 16, 92% O2 saturation. General: Alert, conversant, no distress. Lungs are clear. Heart regular rate and rhythm. Abdomen soft and nontender. His foot is dressed. He has decreased but palpable pulses in his feet. LABS: CBC and electrolytes are essentially unchanged from yesterday. Hemoglobin A1c was done to screen for diabetes. It was normal at 5.9. IMPRESSION: 1. Osteomyelitis left great toe. He is now on p.o. Levaquin. We will see how he does with physical therapy today and on care rounds, we will discuss getting home services set up. He might be stable for discharge tomorrow or the next day depending on his home situation. 2. Hypertension. Blood pressure is well controlled on his current regimen. 3. Spinal stenosis. Outpatient follow up with orthopedics advised. 4. Chronic kidney disease with acute kidney injury, went to baseline with hydration. 5. Atrial fibrillation. Rate is controlled on his current regimen. 6. Type-2 diabetes. He is on Metformin and Januvia as an outpatient. His hemoglobin A1c is normal. I am not sure he is getting much from the Januvia which does not have any documented cardiovascular benefit. Disposition depends on response to physical therapy and plans for outpatient followup. edited: 07/07/2020 [id number] tkf MTDD
--- NOTE | 2020-06-19 10:00 | CR ---
INFECTIOUS DISEASE CONSULTATION DATE OF CONSULTATION: 06/17/2020 CONSULTATION REQUESTED BY: Rick Corbett M.D. REASON FOR CONSULTATION: Evaluation of osteomyelitis of the left great toe. HISTORY OF PRESENT ILLNESS: Mr. Blunt is a pleasant 80-year-old gentleman, who was admitted to [facility] on 06/13/2020 after he had fallen out of bed and was not able to get up. Patient states that he usually walks with two canes due to severe back pain and left leg weakness. Whenever he gets up and down the stairs, he uses only one cane. That night he is not sure what happened, he fell out of bed, and was not able to get back up. He was on the floor for a while. He had abrasions on both his elbows. He was brought to the Emergency Room with a temperature of 102.7 and a white count of 19.1. A chest x-ray obtained did not show any evidence of acute disease. He did not have any cough or shortness of breath. No nausea, vomiting or diarrhea. He denied any urinary dysuria. He had some episodes of urinary incontinence. Patient had I.V. fluids, he received vancomycin and Zosyn starting on 06/13/2020. Vancomycin was discontinued on the and Zosyn was continued. He had blood cultures; one out of two was positive for Staph epidermidis, which is most likely a contaminant and the toe ulcer was cultured and it had a few pseudomonas aeruginosa and Staphylococcus caprae. Patient's white count 8.9 today and he has been afebrile for the past three days. PAST MEDICAL HISTORY: His past medical history is significant for: 1. Type 2 diabetes; currently on insulin sliding scale. Well controlled with hemoglobin A1C of 5.9. 2. Hypertension. 3. Atrial fibrillation. 4. Hyperlipidemia. 5. No history of coronary artery disease or congestive heart failure. 6. Diabetic foot ulcer of the left big toe for at least a year and a half. He had followed up with Dr. Vick for about a year. 7. History of MRSA and faecalis infection in 2019, but not recently infected. He has followed up at the wound clinic for the past 3-4 months and had an offloading cast, which helped heal the ulcer, but it reopened a couple of weeks ago. ALLERGIES: Zolpidem causes behavioral changes. MEDICATIONS: 1. Bisoprolol 10 mg daily. 2. Diltiazem 120 mg daily. 3. Fluticasone two sprays daily. 4. Furosemide 80 mg daily. 5. Gabapentin 300 mg t.i.d. 6. Losartan 100 mg daily. 7. Magnesium Oxide 400 mg b.i.d. 8. Metformin 500 mg every 24 hours; currently on hold. 9. Multivitamin one tablet daily. 10. [place]-3 fatty acid 1,000 mg daily. 11. Xarelto 20 mg p.o. daily. 12. Januvia 100 mg p.o. daily. 13. Spironolactone 12.5 mg p.o. daily. 14. Colace 100 mg p.o. b.i.d. 15. Zosyn 2.25 grams I.V. every 6 hours, PHYSICAL EXAMINATION: He is a healthy looking gentleman in no acute distress. VITALS: Temperature 98, pulse 87, respirations 16, blood pressure 156/62, O2 sat 96% on room air. HEART: Normal S1, S2. No murmurs, rubs or gallops. LUNGS: Clear. No wheezes, rales or rhonchi. ABDOMEN: Obese, soft, nontender. BACK: No CVA or lumbosacral tenderness. EXTREMITIES: +2 edema on the left side, +1 edema on the right side. There is an ulcer on his left big toe measuring about 1 cm x 0.7 cm with minimal serosanguineous discharge. Serous erythema of the distal phalanx with minimal tenderness. There is no cellulitis of the leg or the foot. IMAGING STUDIES: Foot MRI done on 06/16/2020 showed an ulcer with surrounding cellulitis and osteomyelitis of the distal phalanx with osteolytic defect and bone marrow edema. Tenosynovitis of the flexor hallucis longus. CT of the abdomen and pelvis done on 06/14/2020 showed a colonic diverticulosis without diverticulitis, a hypodense lesion in the inferior right hepatic lobe unchanged, dilated common bile duct cyst in the left kidney, hyperdense renal cyst, and a stone in the right base of the bladder. Urinalysis had zero white cells, 5 red blood cells. IMPRESSION: This is a 80-year-old gentleman who was admitted with sepsis, white count of 19,000 and temperature of 102.7, who had fallen out of bed and could not get up. The only source of infection was found to be the toe. He was hypotensive on admission with a blood pressure of 98/54 and had acute kidney injury. Patient is currently doing much better. Creatinine is back to baseline at 1.09. His fever has resolved. White count is normal. Patient has received five days of I.V. Zosyn and is clinically doing well. MRI is consistent with osteomyelitis of the distal phalanx with a previous history of ulceration that has been going on for a year and a half. PLAN: Discontinue I.V. Zosyn; switch to p.o. Levofloxacin 750 mg p.o. daily starting tomorrow. Discontinue Colace; start probiotic one tablet p.o. b.i.d. Follow-up with infectious disease clinic in two weeks as an outpatient. Obtain ESR and CRP to follow progression of infection. Case discussed with the patient and his daughter, who is a hospital laboratory technician at [employer] [employer]. From an infectious disease standpoint, patient is able to be discharged home. I would suggest resuming his diuretics. He has a lot of lower extremity edema and at baseline he takes Lasix 80 mg daily. MTDD
[2020-06-19] MEDS ORDERED: LEVA750T7 PO (11:06)
[2020-06-19] MEDS ORDERED: RISATAB3 PO (11:06)
[2020-06-19 12:00] VITALS: BP 130/79
--- NOTE | 2020-06-19 23:14 | DS.PDOC ---
Discharge Summary General Date of Admission Jun 13, 2020 at 20:40 Date of Discharge June 19, 2020 Attending Physician: LINNEA JIN DO Specialist/Consultants Involve Infectious Disease, Dr. Kapadia Discharge Summary PROCEDURES PERFORMED DURING STAY: None ADMITTING DIAGNOSES: 1. Spinal Stenosis 2. Sepsis 3. Lactic acidosis 4. GEOVANY 5. Diabetes mellitus 6. Hypertension 7. Atrial fibrillation DISCHARGE DIAGNOSES: 1. Spinal Stenosis 2. Sepsis 2/2 osteomyelitis and cellulitis 3. Lactic acidosis 4. GEOVANY 5. Diabetes mellitus 6. Hypertension 7. 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 HISTORY OF PRESENT ILLNESS: Mr. Blunt is a 80-year-old male with diabetes TYPE II, hypertension, atrial fibrillation, hyperlipidemia who comes to [facility] after an inability to get from the ground and found to have fever and leukocytosis. He tells me at baseline he has trouble moving his left leg. He tells me that he goes to physical therapy to help him with his left leg weakness. He is never had problems with his right leg before. Last night he went to bed around 10:45 PM. Then he told me that he rolled out of bed, fell to the ground, and could not get up. Normally he is able to get up off of the ground. Today he decided to come to the ED because of the leg weakness. While in the ED, his found to have a temperature of 102.7 and leukocytosis of 19.1. They obtained a chest x-ray, which demonstrated no evidence of acute pulmonary disease. We started him on IV fluids and call for admission. When I went on to see the patient, he told me that for a few months he noticed that he has been having urinary incontinence. He describes it as he was not able to make it to the bathroom to urinate, and it comes on once. He also reports that he sometimes have fecal incontinence as well. I used a pen to poke his inner thighs and he did not feel that. He does not know how long that has been going on. The only new symptom was weakness in his right leg/right thigh. O therwise he denied any lightheadedness or dizziness, chest pain, abdominal pain or nausea, or dysuria. He have this paresthesias in his feet. We obtained an MRI and I discussed the results with orthopedic surgery. They tell me this was old and recommend outpatient PT HOSPITAL COURSE: During his hospitalization, he had CXR, CT abd/pelvis, and UA to look for cause of fever and leukocytosis which were negative for signs of infection. His toe did not appear to be infected, but wound culture returned positive for pansensitive pseudomonas. MRI of the left foot was compative for osteomyelitis of the left toe and cellulitis. Infectious disease was consulted. They recommended levofloxacin. Patient worked with physical therapy. Today, PT cleared patient for outpatient physical therapy. This morning, patient felt well. Denied fever/chills, chest pain, dyspnea, abdominal pain, or dysuria. He felt ready for home and subsequently discharged. DISCHARGE MEDICATIONS: Please see below. ALLERGIES: Please see below. PHYSICAL EXAMINATION ON DISCHARGE: VITAL SIGNS: Please see below. GENERAL: Comfortable, in no apparent distress. HEENT: Head normocephalic/atraumatic, EOMI, sclera clear. NECK: Supple RESPIRATORY: Lungs clear to auscultation bilaterally, no rales, wheeze or rhonchi. CARDIOVASCULAR: Regular rate and rhythm. ABDOMEN: Soft, nontender, no guarding or rebound tenderness. Normal bowel sounds. MUSCLE SKELETAL: Muscle strength 5/5 in all extremities. Bilateral pitting edema NEUROLOGICAL: CN 312 grossly intact, no focal deficits noted. PSYCHOLOGICAL: Normal mood and affect LABORATORY DATA: Please see below. IMAGING: MRI left foot 1. Osteomyelitis in the 1st distal phalanx, where there is an osteolytic defect and bone marrow edema. There is no evidence of osteomyelitis in any of the other bones. 2. There is an ulcer with surrounding cellulitis at the tip of the left great toe. 3. Tenosynovitis of the flexor hallucis longus. CT abd/pelvis 1. Colonic diverticulosis without diverticulitis. 2. Hypodense lesion in the inferior prior right hepatic lobe. No change from prior. No follow-up is necessary. 3. Dilated CBD. No change from prior. 4. Hypodense lesions in the left kidney. Consistent with cyst. No change from prior. No follow-up is necessary. 5. Hypodense lesion in the lower pole of the left kidney. Consistent with hyperdense renal cyst. No follow-up is necessary. 6. Loose stone in the right base of the bladder. No change from prior. MRI lumbar spine 1. Degenerative changes are noted from L2-L3 through L5-S1, as described above. 2. Mild edema within the L3-L4 and L4-L5 discs as well as the adjacent bone marrow. This is chronic compared to the prior study. 3. Moderate stable narrowing of the thecal sac at L4-L5 and L5-S1. There is severe narrowing of the thecal sac again visualized at L3-L4, with a right-sided disc herniation/protrusion. 4. There is compression of the right S1 nerve root within the right lateral recess at L5-S1. 5. Neural foraminal narrowing visualized from L2-L3 through L5-S1. 6. Mild retrolisthesis of L3 on L4. 7. Retroperitoneal lymph nodes are identified, some which are mildly enlarged. PROGNOSIS: Stable ACTIVITY: As tolerated. DIET: Carbohydrate consistent DISCHARGE PLAN: Home DISPOSITION: 01 Home, Self-Care. DISCHARGE INSTRUCTIONS: 1. Follow up with your PCP in 1 week 2. Follow up with ID in 2 weeks DISCHARGE CONDITION: Stable Total time spent on discharge planning, discharge summary, and medication reconciliation 40 minutes Vital Signs/I&Os Vital Signs Date Time Temp Pulse Resp B/P (MAP) Pulse Ox O2 Delivery O2 Flow Rate FiO2 06/19/20 12:00 97.6 89 18 130/79 (96) 96 Room Air I&O- Last 24 Hours up to 6 AM 06/19/20 06:00 Intake Total 1358 ml Output Total 2400 ml Balance -1042 ml Laboratory Data Labs 24H Laboratory Tests 2 06/19/20 05:12: Nucleated Red Blood Cells % (auto) 0.0, Anion Gap 7L, Glomerular Filtration Rate > 60.0, Calcium Level 8.5L 06/19/20 11:20: Bedside Glucose (Misc Panel) 95 CBC/BMP Laboratory Tests 06/19/20 05:12 FSBS Laboratory Tests Test 06/19/20 11:20 Range/Units Bedside Glucose (Misc Panel) 95 83-110 MG/DL Microbiology Microbiology 06/13/20 Gram Stain - Final, Complete 06/13/20 Wound Culture - Final, Complete Pseudomonas Aeruginosa Staphylococcus Caprae 06/13/20 Blood Culture - Final, Complete NO GROWTH AFTER 5 DAYS 06/13/20 Blood Culture - Final, Complete Staphylococcus Epidermidis Discharge Medications Scheduled Bisoprolol Fumarate (Bisoprolol Fumarate) 10 Mg Tablet, 10 MG PO BID, (Reported) Diltiazem HCl (Diltiazem 24Hr ER) 120 Mg Cap.er.24h, 120 MG PO DAILY, (Reported) Fluticasone Propionate (Flonase Allergy Relief) 9.9 Ml [place].susp, 2 SPRAY NARES DAILY, (Reported) Furosemide (Furosemide) 80 Mg Tablet, 80 MG PO DAILY, (Reported) Gabapentin (Gabapentin) 300 Mg Capsule, 300 MG PO TID, (Reported) Garlic (Garlic) 1 Each Tablet, 150 MG PO DAILY, (Reported) L.acidoph/L.bulg/B.bif/S.therm ([place]-Bid Cap[place]) 1 Each Tablet, 1 EA PO BIDWM Levofloxacin (Levaquin) 750 Mg Tablet, 750 MG PO DAILY@06 Do not take with antacids, iron, dairy products, or magnesium. It will affect absorption Losartan Potassium (Cozaar) 100 Mg Tablet, 100 MG PO DAILY, (Reported) Magnesium Oxide (Magnesium Oxide) 400 Mg Tablet, 400 MG PO BID, (Reported) Metformin HCl (Metformin HCl ER) 500 Mg Tab.er.24h, 1,000 MG PO QHS, (Reported) Multivitamin (Multivitamins) 1 Cap Cap, 1 CAP PO DAILY, (Reported) [place]-3 Fatty Acids/Fish Oil (Fish Oil 1,000 mg Capsule) 1,000 Mg Cap, 1,000 MG PO DAILY, (Reported) Rivaroxaban (Xarelto) 20 Mg Tablet, 20 MG PO DAILY, (Reported) Sitagliptin Phosphate (Januvia) 100 Mg Tablet, 100 MG PO DAILY, (Reported) Spironolactone (Spironolactone) 25 Mg Tablet, 12.5 MG PO DAILY, (Reported) Allergies Coded Allergies: zolpidem (Verified Adverse Reaction, Intermediate, BECOMES BELLIGERENT AND MEAN, 06/08/19) LINNEA JIN DO Jun 19, 2020 23:14
== END 2020-06-19 15:21 | disposition home or self-care (01) | DRG 872 ==
LOC: M ED 13:25 → M PCU 20:40 → EEVIPCON 20:40 → ENRESERV 20:52
PROVIDERS: ADMIT Internal Medicine; ATTEND Internal Medicine
DX: A41.9 Sepsis, unspecified organism (principal); N17.9 Acute kidney failure, unspecified; I50.32 Chronic diastolic (congestive) heart failure; E87.2 Acidosis; M86.8X7 Other osteomyelitis, ankle and foot; I13.0 Hypertensive heart and chronic kidney disease with heart failure and stage 1 through stage 4 chronic kidney disease, or unspecified chronic kidney disease; M48.061 Spinal stenosis, lumbar region without neurogenic claudication; E11.40 Type 2 diabetes mellitus with diabetic neuropathy, unspecified; E11.621 Type 2 diabetes mellitus with foot ulcer; I48.91 Unspecified atrial fibrillation; L03.032 Cellulitis of left toe; B96.5 Pseudomonas (aeruginosa) (mallei) (pseudomallei) as the cause of diseases classified elsewhere; E78.5 Hyperlipidemia, unspecified; K57.30 Diverticulosis of large intestine without perforation or abscess without bleeding; Z79.899 Other long term (current) drug therapy; Z88.8 Allergy status to other drugs, medicaments and biological substances; M10.9 Gout, unspecified; N18.9 Chronic kidney disease, unspecified; L97.529 Non-pressure chronic ulcer of other part of left foot with unspecified severity

== ENCOUNTER → 2020-07-07 | Outpatient (REF) | payer MEDICARE, BC ==
[~2020-07-07] MED LIST changes: +GABA-843 PO; +LEVA750T7 PO; +METF-838 PO; +RISATAB3 PO; +SPIR-10 PO
[2020-07-07 15:02] LABS: BASO % 0.4 % (0.0-1.0); EOS # 0.2 10^3/uL (0.0-0.5); EOS % 2.8 % (0.0-3.0); HEMATOCRIT 30.2 % (42.0-52.0); HEMOGLOBIN 9.5 g/dl (13.5-17.5); LYMPH # 2.1 10^3/uL (1.5-5.0); LYMPH % 29.9 % (24.0-44.0); MEAN CORPUSCULAR HEMOGLOBIN 30.9 pg (27.0-33.0); MEAN CORPUSCULAR HGB CONC 31.5 g/dl (32.0-36.5); MEAN CORPUSCULAR VOLUME 98.4 fl (80.0-96.0); MONO # 0.8 10^3/uL (0.0-0.8); MONO % 11.8 % (0.0-5.0); NEUTROPHILS # 3.8 10^3/uL (1.5-8.5); NEUTROPHILS % 54.2 % (36.0-66.0); PLATELET COUNT, AUTOMATED 284 10^3/uL (150-450); RED BLOOD COUNT 3.07 10^6/uL (4.30-6.10)
[2020-07-07 15:17] LABS: C REACTIVE PROTEIN QUANTITATIV 0.3 MG/DL (0.00-0.30); CALCIUM LEVEL 9.1 MG/DL (8.8-10.2); CREATININE FOR GFR 2.03 MG/DL (0.70-1.30); GLOMERULAR FILTRATION RATE 33.9 (>42); POTASSIUM SERUM 4.6 MEQ/L (3.5-5.1)
[2020-07-07 15:38] LABS: ERYTHROCYTE SEDIMENTATION RATE 52 mm/hr (0-20)
== END ==
LOC: M SFHCPLAZ 13:18
PROVIDERS: ATTEND Internal Medicine Infectious Disease
DX: M86.9 Osteomyelitis, unspecified (principal)
CPT/HCPCS: 36415; 80048; 85025; 85652; 86140; G0463

== ENCOUNTER → 2020-07-28 | Outpatient (REF) | payer MEDICARE, BC ==
[2020-07-28 13:52] LABS: BASO # 0.1 10^3/uL (0.0-0.2); BASO % 0.6 % (0.0-1.0); EOS # 0.2 10^3/uL (0.0-0.5); EOS % 2.2 % (0.0-3.0); LYMPH # 2.7 10^3/uL (1.5-5.0); LYMPH % 34.6 % (24.0-44.0); MEAN CORPUSCULAR HEMOGLOBIN 31.9 pg (27.0-33.0); MEAN CORPUSCULAR HGB CONC 32.3 g/dl (32.0-36.5); MONO # 0.9 10^3/uL (0.0-0.8); MONO % 12.1 % (0.0-5.0); NEUTROPHILS # 3.9 10^3/uL (1.5-8.5); NEUTROPHILS % 49.9 % (36.0-66.0); PLATELET COUNT, AUTOMATED 244 10^3/uL (150-450); RED BLOOD COUNT 3.13 10^6/uL (4.30-6.10); WHITE BLOOD COUNT 7.7 10^3/uL (4.0-10.0)
[2020-07-28 14:50] LABS: CALCIUM LEVEL 9.1 MG/DL (8.8-10.2); CREATININE FOR GFR 1.42 MG/DL (0.70-1.30); GLOMERULAR FILTRATION RATE 51.2 (>42); POTASSIUM SERUM 4.9 MEQ/L (3.5-5.1)
[2020-07-28 15:16] LABS: HEMOGLOBIN A1c 5.9 %
[2020-07-28 15:23] LABS: ERYTHROCYTE SEDIMENTATION RATE 34 mm/hr (0-20)
[2020-07-28 15:25] LABS: ALBUMIN 3.8 GM/DL (3.2-5.2); BILIRUBIN,TOTAL 0.3 MG/DL (0.2-1.0); C REACTIVE PROTEIN QUANTITATIV 0.3 MG/DL (0.00-0.30); CALCIUM LEVEL 9.3 MG/DL (8.8-10.2); CHOLESTEROL RISK RATIO 3.62 (<5); CREATININE FOR GFR 1.42 MG/DL (0.70-1.30); GLOMERULAR FILTRATION RATE 51.2 (>42); MAGNESIUM LEVEL 2.2 MG/DL (1.8-2.4); POTASSIUM SERUM 4.9 MEQ/L (3.5-5.1); TOTAL PROTEIN 6.6 GM/DL (6.4-8.2)
== END ==
LOC: M PLALAB 11:08
PROVIDERS: ATTEND Internal Medicine Infectious Disease
DX: I11.9 Hypertensive heart disease without heart failure (principal); E11.40 Type 2 diabetes mellitus with diabetic neuropathy, unspecified; M86.9 Osteomyelitis, unspecified; I50.9 Heart failure, unspecified

== ENCOUNTER → 2020-12-29 | Outpatient (REF) | payer MEDICARE, BC ==
[~2020-12-29] MED LIST changes: +GABA-282 PO; -GABA-843 PO; +LISI10TA22 PO; -LISI10TA4 PO
[2020-12-29 10:29] LABS: BASO # 0.1 10^3/uL (0.0-0.2); BASO % 0.9 % (0.0-1.0); EOS # 0.2 10^3/uL (0.0-0.5); EOS % 2.2 % (0.0-3.0); HEMATOCRIT 32.6 % (42.0-52.0); HEMOGLOBIN 10.6 g/dl (13.5-17.5); LYMPH # 2.2 10^3/uL (1.5-5.0); LYMPH % 27.7 % (24.0-44.0); MEAN CORPUSCULAR HEMOGLOBIN 31.6 pg (27.0-33.0); MEAN CORPUSCULAR HGB CONC 32.5 g/dl (32.0-36.5); MEAN CORPUSCULAR VOLUME 97.3 fl (80.0-96.0); MONO # 0.9 10^3/uL (0.0-0.8); MONO % 11.9 % (2.0-8.0); NEUTROPHILS # 4.4 10^3/uL (1.5-8.5); NEUTROPHILS % 56.8 % (36.0-66.0); PLATELET COUNT, AUTOMATED 222 10^3/uL (150-450); RED BLOOD COUNT 3.35 10^6/uL (4.30-6.10); WHITE BLOOD COUNT 7.8 10^3/uL (4.0-10.0)
[2020-12-29 10:57] LABS: ALBUMIN 4.1 GM/DL (3.2-5.2); BILIRUBIN,TOTAL 0.5 MG/DL (0.2-1.0); CALCIUM LEVEL 9.8 MG/DL (8.8-10.2); CREATININE FOR GFR 1.72 MG/DL (0.70-1.30); MAGNESIUM LEVEL 2.4 MG/DL (1.8-2.4); POTASSIUM SERUM 4.2 MEQ/L (3.5-5.1); TOTAL PROTEIN 7.1 GM/DL (6.4-8.2)
[2020-12-29 12:00] LABS: HEMOGLOBIN A1c 6.2 %
== END ==
LOC: M PLALAB 08:03
PROVIDERS: ATTEND Internal Medicine
DX: D64.9 Anemia, unspecified (principal); I11.9 Hypertensive heart disease without heart failure; E11.40 Type 2 diabetes mellitus with diabetic neuropathy, unspecified

== ENCOUNTER → 2021-02-26 | Outpatient (REF) | payer MEDICARE, BC | LOC: M LAB REF 19:02 | PROVIDERS: ATTEND Physician Assistant | DX: L97.522 Non-pressure chronic ulcer of other part of left foot with fat layer exposed (principal); E11.621 Type 2 diabetes mellitus with foot ulcer; M86.172 Other acute osteomyelitis, left ankle and foot; M86.672 Other chronic osteomyelitis, left ankle and foot ==

== ENCOUNTER 2021-05-01 16:59 | Inpatient (IN) | payer MEDICARE, BC ==
[~2021-05-01] VITALS: Ht 182.9 cm; Wt 101.1 kg
[2021-05-01 18:38] LABS: BASO # 0.1 10^3/uL (0.0-0.2); BASO % 0.3 % (0.0-1.0); EOS # 0.2 10^3/uL (0.0-0.5); EOS % 0.9 % (0.0-3.0); HEMATOCRIT 31.9 % (42.0-52.0); HEMOGLOBIN 10.6 g/dl (13.5-17.5); LYMPH % 11.8 % (24.0-44.0); MEAN CORPUSCULAR HEMOGLOBIN 32.3 pg (27.0-33.0); MEAN CORPUSCULAR HGB CONC 33.2 g/dl (32.0-36.5); MEAN CORPUSCULAR VOLUME 97.3 fl (80.0-96.0); MONO # 1.3 10^3/uL (0.0-0.8); MONO % 7.7 % (2.0-8.0); NEUTROPHILS # 13.4 10^3/uL (1.5-8.5); NEUTROPHILS % 78.6 % (36.0-66.0); PLATELET COUNT, AUTOMATED 215 10^3/uL (150-450); RED BLOOD COUNT 3.28 10^6/uL (4.30-6.10)
[2021-05-01 18:56] LABS: CALCIUM LEVEL 8.6 MG/DL (8.8-10.2); CREATININE FOR GFR 1.67 MG/DL (0.70-1.30); GLOMERULAR FILTRATION RATE 42.5 (>42); POTASSIUM SERUM 4.5 MEQ/L (3.5-5.1)
[2021-05-01 19:14] LABS: RSV AMPLIFICATION NEGATIVE (NEGATIVE)
--- NOTE | 2021-05-01 20:34 | REPVR ---
PROCEDURE INFORMATION: Exam: CT Abdomen And Pelvis Without Contrast Exam date and time: 05/01/2021 7:59 PM Age: 80 years old Clinical indication: Fever; Additional info: Fever, hematuria TECHNIQUE: Imaging protocol: Computed tomography of the abdomen and pelvis without contrast. Radiation optimization: All CT scans at this facility use at least one of these dose optimization techniques: automated exposure control; mA and/or kV adjustment per patient size (includes targeted exams where dose is matched to clinical indication); or iterative reconstruction. COMPARISON: CT ABD PELVIS W/O CONTRAST 06/14/2020 8:26 AM FINDINGS: Liver: Unremarkable. No mass. Gallbladder and bile ducts: Prior cholecystectomy. Stable extrahepatic biliary duct dilation. No obstructing biliary tract calculi. Pancreas: Normal. No ductal dilation. Spleen: Normal. No splenomegaly. Adrenal glands: Normal. No mass. Kidneys and ureters: Mild renal atrophy. Stable cysts in the left kidney. No hydronephrosis. Stomach and bowel: There is colonic diverticulosis without evidence of diverticulitis. Mild intraluminal fluid and mucosal enhancement in the small bowel. No wall thickening or other inflammatory changes. No bowel obstruction. Appendix: No evidence of appendicitis. Intraperitoneal space: No free air. No significant fluid collection. Vasculature: Unremarkable. No abdominal aortic aneurysm. Lymph nodes: Unremarkable. No enlarged lymph nodes. Urinary bladder: 3 mm calculus in the urinary bladder. No urinary bladder wall thickening or solid masses. Reproductive: Unremarkable as visualized. Bones/joints: There are advanced degenerative changes in the spine and pelvis. Soft tissues: Unremarkable. IMPRESSION: 1. Colonic diverticulosis without evidence of diverticulitis. 2. Mild mucosal enhancement and intraluminal fluid in the small bowel is nonspecific but may indicate a viral enteritis. No bowel obstruction. 3. 3 mm calculus in the urinary bladder is unchanged. No hydronephrosis. Electronically signed by: Rod Silva On 05/01/2021 20:34:23 PM
--- NOTE | 2021-05-01 20:35 | REPVR ---
PROCEDURE INFORMATION: Exam: XR Chest Exam date and time: 05/01/2021 8:05 PM Age: 80 years old Clinical indication: Fever; Additional info: Fever of unknown origin TECHNIQUE: Imaging protocol: XR of the chest. Views: 1 view. COMPARISON: CR PORTABLE CHEST X-RAY 06/13/2020 2:17 PM FINDINGS: Lungs: Clear. No consolidation. Pleural spaces: No pleural effusion. No pneumothorax. Heart/Mediastinum: Unremarkable. No cardiomegaly. Bones/joints: Unremarkable. IMPRESSION: No acute findings. Electronically signed by: Rod Silva On 05/01/2021 20:35:20 PM
[2021-05-01] MEDS ORDERED: NS 1,000 ML IV ONE (21:00)
[2021-05-01] MEDS ORDERED: ACETAMINOPHEN TAB 650MG DOSE (2X325MG) PO ONE (21:00)
[2021-05-01] MEDS ORDERED: PROHANCE 279.3MG/ML 5ML VIAL As Ordered ONE (22:50)
--- NOTE | 2021-05-01 23:37 | REPVR ---
PROCEDURE INFORMATION: Exam: MR Lumbar Spine Without and With Contrast Exam date and time: 05/01/2021 10:57 PM Age: 80 years old Clinical indication: Low back pain; Additional info: Fever unknown origin, HX of injections, R/O abscess TECHNIQUE: Imaging protocol: Multiplanar magnetic resonance images of the lumbar spine without and with intravenous contrast. Contrast material: PROHANCE; Contrast volume: 8 ml; Contrast route: INTRAVENOUS (IV); COMPARISON: MRI-Spine, L.S. without con 06/13/2020 6:49 PM FINDINGS: Vertebrae: Normal vertebral body alignment. Advanced discogenic and facet degenerative changes. Mild reactive endplate edema at L4-L5. Spinal cord: Conus medullaris terminates in normal position at L1. Conus medullaris is unremarkable. L1-L2: No disc herniation or spinal stenosis. No significant foraminal stenosis. L2-L3: Disc degeneration with small posterior disc bulge. No spinal stenosis. Mild bilateral foraminal stenosis. L3-L4: Disc degeneration with disc space narrowing and broad based posterior disc bulge. Advanced facet DJD and hypertrophy. Severe spinal stenosis with cauda equina compression. Severe bilateral foraminal stenosis. L4-L5: Disc degeneration with disc space narrowing and broad based posterior disc bulge. Advanced facet DJD and hypertrophy. Severe spinal stenosis with cauda equina compression. Severe bilateral foraminal stenosis. Epidural fat protruding into the neural foramina and central spinal canal worsens spinal stenosis at the L4 level. Mild enhancement is noted in the posterior disc bulge. L5-S1: Disc degeneration with disc space narrowing and broad based posterior disc bulge. Severe right lateral recess stenosis and milder left lateral recess stenosis. Mild central spinal stenosis. Severe bilateral foraminal stenosis. Soft tissues: Unremarkable. IMPRESSION: 1. Advanced degenerative spondylosis as above. Severe central spinal canal stenosis at L3-L4 and L4-L5. Severe right lateral recess stenosis at L5-S1. 2. Multilevel neural foraminal stenosis with severe foraminal stenosis from L3-L4 to L5-S1. 3. No drainable abscess or signs of discitis. Electronically signed by: Rod Silva On 05/01/2021 23:36:59 PM
[2021-05-02] MEDS ORDERED: cefTRIAXone SOD 1 GM in D5W MINI-BAG PLUS 50 ML IV ONE (00:20)
[2021-05-02] MEDS ORDERED: MOM 30ML SUSPENSION UDC PO PRN (00:40)
[2021-05-02] MEDS ORDERED: DEXTROSE 50% 50 ML SYRINGE IV PRN (00:40)
[2021-05-02] MEDS ORDERED: GLUCOSE 4GM CHEW TABLET PO PRN (00:40)
[2021-05-02] MEDS ORDERED: LR 1,000 ML IV ONE ×2 (00:40→01:40)
[2021-05-02] MEDS ORDERED: GLUCAGON INJ 1MG VIAL SC PRN (00:40)
[2021-05-02] MEDS ORDERED: ACETAMINOPHEN TAB 650MG DOSE (2X325MG) PO PRN (00:40)
[2021-05-02] MEDS ORDERED: MAALOX 30 ML SUSP *UDC PO PRN (00:40)
--- NOTE | 2021-05-02 00:47 | HPEPDOC ---
[facility] Medical History & Physical Date of Admission May 02, 2021 Date of Service: May 02, 2021 Primary Care Physician: Anjel Pastor Attending Physician: TEJAS STINSON MD History and Physical TIME OF SERVICE: 500am CHIEF COMPLAINT: shaking HISTORY OF PRESENT ILLNESS: , a 51 yr old M, noticed that his legs & knees suddenly started shaking at about 2PM yesterday afternoon. He has also had fever, difficulty standing up because he felt weak & blood in his urine. He denied having n/v/d or pain in any part of his body. REVIEW OF SYSTEMS: 10-point review of systems negative except as listed in HPI PAST MEDICAL/ SURGICAL HISTORY: Chronic CAD, NIDDM w neuropathy, Longstanding persistent A Fib, Chronic back pain receives spinal injections regularly to control the pain (last one was 2 weeks ago) /Debility / uses walker, Essential HTN, Gout, Chronic HFpEF, DLP, MRSA of the right toe, Cholecystectomy, Right shoulder arthroscopy, Upper lid Blepharoplasties SOCIAL HISTORY: Former Smoker ( Former smoker, quit 21 years ago, smoked for a few years but doesn't know for how long, 1 pack per day), he drinks alcohol occasionally FAMILY HISTORY: Father: at the age of 86, history of colon cancer / Mother: Diagnosed age of 89, no known medical history, denies diabetes, cancer, or thyroidism in mother. ALLERGIES: Please see below. HOME MEDICATIONS: Please see below. PHYSICAL EXAMINATION: Vital Signs Date Time Temp Pulse Resp B/P (MAP) Pulse Ox O2 Delivery O2 Flow Rate FiO2 05/01/21 17:21 142/65 (90) 05/01/21 17:21 101.7 94 22 97 Room Air GENERAL APPEARANCE: well nourished and developed/ NAD HEENT: EOMI / MMM&P CARDIOVASCULAR: HR irregularly irregular /NMRG/ no BLE edema LUNGS: CTAB on RA ABDOMEN: contour obese / soft & NT w palpation MUSCULOSKELETAL: NCAT INTEGUMENT: he has a rash that appears to be purpura on the LLE / he has a drai di ulcer on the left second toe along with another healing ulcer on the left hallux NEUROLOGICAL: CN 2-12 grossly intact /speech not dysarthric PSYCHIATRIC: A&O x 3 / able to understand and follow all commands LABORATORY DATA: IMAGING: CT abd/pelvis IMPRESSION: 1. Colonic diverticulosis without evidence of diverticulitis. 2. Mild mucosal enhancement and intraluminal fluid in the small bowel is nonspecific but may indicate a viral enteritis. No bowel obstruction. 3. 3 mm calculus in the urinary bladder is unchanged. No hydronephrosis. Chest xray IMPRESSION: No acute findings. MRI lumbar spine IMPRESSION: 1. Advanced degenerative spondylosis as above. Severe central spinal canal stenosis at L3-L4 and L4-L5. Severe right lateral recess stenosis at L5-S1. 2. Multilevel neural foraminal stenosis with severe foraminal stenosis from L3-L4 to L5-S1. 3. No drainable abscess or signs of discitis. MICROBIOLOGY: Respiratory panel is neg ASSESSMENT: is a 80 yr old M w a hx of CAD, NIDDM w neuropathy, A Fib, Chronic back pain /Debility, HTN, Gout, HFpEF, DLP, & MRSA of the right toe who is admitted for Sepsis, suspected bacteremia, possible toe infection and weakness. PLAN: 1 Sepsis SIRS criteria: Temp 101.7 or <96.8 / HR 96 / WBC 17 / RR 22 Possible causes include bacteremia and or infected toe (osteo) The qSOFA score =1 = not high risk The lactic acid is elevated Plan: admit to PCU / telemetry / Sepsis protocol w repeat / Zosyn and vancomycin pending booth cx results / switch to lactate ringers / Acetaminophen PRN for fever / target MAP at of least 65 to 70 / f/u Is and Os with target UOP of at least 0.5 ml/kg/H / f/u FSBS w target serum glucose 140-180 while acutely ill / hold losartan, Lasix and spironolactone until the blood pressure has improved 2 Possible second left toe infection Plan: f/u ESR,CRP and foot xray / will ask the day time team to place Podiatry and Wound care consults 3 Weakness 2/2 infection Plan: treat infection / consider PT consult if weakness doesnt improve after infection has been cleared 4 Asymptomatic UTI He denied abdominal pain Plan: no need to treat 5 Chronic Anemia Plan: f/u CBC 6 Chronic CAD Plan: c/w BB 7 NIDDM w neuropathy Plan: f/u FSBS, SSI, hypoglycemia protocol / hold metformin 8 Longstanding persistent A Fib Plan: c/w BB and DOAC 9 Chronic back pain receives spinal injections regularly to control the pain (last one was 2 weeks ago) /Debility / uses walker Plan:f/u w ortho as scheduled 10 hx of Essential HTN / Chronic HFpEF ? Plan: c/w bisoprolol / hold ACEI, K sparing diuretic and Lasix pending improved BP DVT px n/a on DOAC Dispo: home after at least 2 midnights stay His LACE Index Score is 10 points which indicates that he is at high risk for re-admission or within the next 30 days. A PFS consult has been placed Home Medications Scheduled Bisoprolol Fumarate (Bisoprolol Fumarate) 10 Mg Tablet, 10 MG PO BID Diltiazem HCl (Diltiazem 24Hr ER) 120 Mg Cap.er.24h, 120 MG PO DAILY Fluticasone Propionate (Flonase Allergy Relief) 9.9 Ml [place].susp, 2 SPRAY NARES DAILY Furosemide (Furosemide) 80 Mg Tablet, 80 MG PO DAILY Garlic (Garlic) 1 Each Tablet, 150 MG PO DAILY Losartan Potassium (Cozaar) 100 Mg Tablet, 100 MG PO DAILY Magnesium Oxide (Magnesium Oxide) 400 Mg Tablet, 400 MG PO BID Metformin HCl (Metformin HCl ER) 500 Mg Tab.er.24h, 1,000 MG PO QHS Multivit-Min/FA/Lycopen/Lutein (Centrum Silver Tablet) 1 Each Tablet, 1 TAB PO DAILY [place]-3 Fatty Acids/Fish Oil (Fish Oil 1,000 mg Capsule) 1,000 Mg Cap, 1,000 MG PO DAILY Rivaroxaban (Xarelto) 20 Mg Tablet, 20 MG PO DAILY Sitagliptin Phosphate (Januvia) 100 Mg Tablet, 100 MG PO DAILY Spironolactone (Spironolactone) 25 Mg Tablet, 12.5 MG PO DAILY Tamsulosin HCl (Flomax) 0.4 Mg Capsule, 0.4 MG PO DAILY Allergies Coded Allergies: zolpidem (Verified Adverse Reaction, Intermediate, BECOMES BELLIGERENT AND MEAN, 06/08/19) A-FIB/CHADSVASC A-FIB History Current/History of A-Fib/PAF?: No Current PO Anticoag Therapy: No TEJAS STINSON MD May 02, 2021 00:47
[2021-05-02] MEDS ORDERED: CENT1TAB PO (01:14)
[2021-05-02] MEDS ORDERED: FLOM0.4C39 PO (01:16)
[2021-05-02] MEDS ORDERED: HOME MED LIST COMPLETE! XX SCH (01:20)
[2021-05-02] MEDS: HumaLOG INSULIN (NovoLOG) PER UNIT SC SCH ×5 (03:25→20:52)
[2021-05-02 06:00] VITALS: BP 112/69
[2021-05-02 06:13] LABS: HEMOGLOBIN 9.7 g/dl (13.5-17.5); MEAN CORPUSCULAR HGB CONC 32.3 g/dl (32.0-36.5); PLATELET COUNT, AUTOMATED 182 10^3/uL (150-450); RED BLOOD COUNT 3.03 10^6/uL (4.30-6.10)
[2021-05-02 06:33] LABS: CALCIUM LEVEL 8.2 MG/DL (8.8-10.2); CREATININE FOR GFR 1.49 MG/DL (0.70-1.30); GLOMERULAR FILTRATION RATE 48.4 (>42); POTASSIUM SERUM 4.5 MEQ/L (3.5-5.1)
[2021-05-02] MEDS: PIPERACILLIN/TAZOBACTAM SOD 4.5 GM in D5W MINI-BAG PLUS 50 ML IV SCH ×4 (06:42→23:52)
[2021-05-02] MEDS: LR 1,000 ML IV SCH ×2 (08:17→14:54)
[2021-05-02] MEDS: FLUTICASONE PROP 0.05% NASAL SPRAY 16 GM (FLONASE) NARES SCH (08:18)
[2021-05-02] MEDS: TAMSULOSIN 0.4 MG CAP PO SCH (08:18)
[2021-05-02] MEDS: RIVAROXABAN 20 MG TAB (XARELTO) PO SCH (08:18)
[2021-05-02] MEDS: MAGNESIUM OXIDE 400MG TAB (MAG-OX) PO SCH ×2 (08:18→20:52)
[2021-05-02 08:29] LABS: C REACTIVE PROTEIN QUANTITATIV 7.26 MG/DL (0.00-0.30)
--- NOTE | 2021-05-02 08:45 | REP ---
INDICATION: right toe ulcer r/o osteo. COMPARISON: None. TECHNIQUE: Four views FINDINGS: There is soft tissue swelling of the 2nd toe in a dressing is in place. There is cortical disruption of the tip of the distal tuft suspicious for early osteomyelitis. There is osteoporosis. Postoperative changes are noted after resection of the distal tuft of the great toe. There is soft tissue swelling of the great toe. No fractures. IMPRESSION: Findings suspicious for osteomyelitis involving distal tuft of the 2nd toe. <Electronically signed by Mango Vernon > 05/02/21 2043
[2021-05-02 08:57] LABS: ERYTHROCYTE SEDIMENTATION RATE 41 mm/hr (0-20)
[2021-05-02] MEDS ORDERED: bisoproloL fumarate 10 MG TAB PO SCH (09:00)
[2021-05-02] MEDS ORDERED: VANCOMYCIN HCL 1,000 MG, VIAL MATE ADAPTER 1 EACH in NS 250 ML IV SCH (10:35)
--- NOTE | 2021-05-02 12:13 | IPNPDOC ---
Text Note Date of Service The patient was seen on 05/02/21. NOTE SUBJECTIVE: -No acute complaints OBJECTIVE: Vitals: see below GENERAL APPEARANCE: well nourished and developed, NAD HEENT: EOMI, MMM CARDIOVASCULAR: Irregularly irregular, no m/r/g LUNGS: CTAB, no crackles, wheezing or rhonchi ABDOMEN: Obese, normoactive sounds, soft, NTND INTEGUMENT: RLE purpuric rash with draining ulcer on the L second toe along with another healing ulcer on the right hallux NEUROLOGICAL: CN 2-12 grossly intact /speech not dysarthric PSYCHIATRIC: A&O x 3 / able to understand and follow all commands LABORATORY DATA: Reviewed WBC 15 Hgb 9.7 ESR 41 CRP 7.2 Cr 1.49 IMAGING: CT abd/pelvis IMPRESSION: 1. Colonic diverticulosis without evidence of dive rticulitis. 2. Mild mucosal enhancement and intraluminal fluid in the small bowel is nonspecific but may indicate a viral enteritis. No bowel obstruction. 3. 3 mm calculus in the urinary bladder is unchanged. No hydronephrosis. Chest xray IMPRESSION: No acute findings. MRI lumbar spine IMPRESSION: 1. Advanced degenerative spondylosis as above. Severe central spinal canal stenosis at L3-L4 and L4-L5. Severe right lateral recess stenosis at L5-S1. 2. Multilevel neural foraminal stenosis with severe foraminal stenosis from L3-L4 to L5-S1. 3. No drainable abscess or signs of discitis. Foot XR: There is soft tissue swelling of the 2nd toe in a dressing is in place. There is cortical disruption of the tip of the distal tuft suspicious for early osteomyelitis. There is osteoporosis. Postoperative changes are noted after resection of the distal tuft of the great toe. There is soft tissue swelling of the great toe. No fractures. IMPRESSION: Findings suspicious for osteomyelitis involving distal tuft of the 2nd toe. MICROBIOLOGY: Respiratory panel is neg ASSESSMENT: is a 80 yr old M w a hx of CAD, NIDDM w neuropathy, A Fib, Chronic back pain /Debility, HTN, Gout, HFpEF, DLP, & MRSA of the right toe who is admitted for Sepsis, suspected bacteremia, possible toe infection and weakness. PLAN: 1 Sepsis: Temp 101.7 or <96.8 / HR 96 / WBC 17 / RR 22 -Possible causes include bacteremia with source being infected toe (w/ possible osteo) -Continue Zosyn -Start vancomycin pending booth cx results especially given history of MRSA and sepsis with likely osteomyelitis -continue fluids -Acetaminophen PRN for fever -hold losartan, Lasix and spironolactone until the blood pressure has improved Possible second L toe infection high likely to be osteomyelitis -Elevated ESR,CRP -Foot xray suggestive of osteomyelitis -Podiatry consult on tuesday, no coverage until then -continue vanc/piptazo for now -will get foot MRI to confirm possible osteomyelitis Weakness -2/2 infection -treat infection per above -PT/OT Asymptomatic UTI -already on broad spectrum abx Chronic Anemia -daily CBC Chronic CAD -holding BB NIDDM w neuropoathy -f/u FSBS -SSI -hypoglycemia protocol -hold metformin Longstanding persistent A Fib -c/w BB as BP permits -DOAC Chronic back pain receives spinal injections regularly to control the pain (last one was 2 weeks ago) /Debility / uses walker -To f/u w ortho as scheduled in the outpatient setting -PT/OT hx of Essential HTN / Chronic HFpEF? -hold bisoprolo, ACEI, K sparing diuretic and Lasix i/s/o sepsis DVT px : on DOAC Dispo: home after at least 2 midnights stay VS,Fishbone, I+O VS, Fishbone, I+O Laboratory Tests 05/01/21 18:10 05/02/21 05:48 Vital Signs Date Time Temp Pulse Resp B/P (MAP) Pulse Ox O2 Delivery O2 Flow Rate FiO2 05/02/21 08:19 76 113/67 05/02/21 06:00 97.8 17 96 Room Air I&O- Last 24 Hours up to 6 AM 05/02/21 06:00 Intake Total 0 ml Output Total 0 ml Balance 0 ml KYRIE LE MD May 02, 2021 10:43
[2021-05-02 14:00] VITALS: BP 106/48
[2021-05-02] MEDS ORDERED: VANCOMYCIN HCL 1,000 MG, VIAL MATE ADAPTER 1 EACH in NS 250 ML IV ONE ×2 (14:00→15:00)
[2021-05-02 22:00] VITALS: BP 104/48
[2021-05-03] MEDS: VANCOMYCIN HCL 750 MG, VIAL MATE ADAPTER 1 EACH in NS 250 ML IV SCH ×2 (02:05→14:52)
[2021-05-03 06:00] VITALS: BP_SYST 104; BP_SYST 134; BP_DIAS 69
[2021-05-03] MEDS: PIPERACILLIN/TAZOBACTAM SOD 4.5 GM in D5W MINI-BAG PLUS 50 ML IV SCH ×4 (06:00→23:46)
[2021-05-03 06:38] LABS: HEMATOCRIT 28.8 % (42.0-52.0); HEMOGLOBIN 9.6 g/dl (13.5-17.5); MEAN CORPUSCULAR HEMOGLOBIN 32.5 pg (27.0-33.0); MEAN CORPUSCULAR HGB CONC 33.3 g/dl (32.0-36.5); MEAN CORPUSCULAR VOLUME 97.6 fl (80.0-96.0); PLATELET COUNT, AUTOMATED 171 10^3/uL (150-450); RED BLOOD COUNT 2.95 10^6/uL (4.30-6.10); WHITE BLOOD COUNT 12.1 10^3/uL (4.0-10.0)
[2021-05-03 07:01] LABS: CALCIUM LEVEL 8.4 MG/DL (8.8-10.2); CREATININE FOR GFR 1.43 MG/DL (0.70-1.30); GLOMERULAR FILTRATION RATE 50.8 (>42); MAGNESIUM LEVEL 2.4 MG/DL (1.8-2.4); POTASSIUM SERUM 4.1 MEQ/L (3.5-5.1)
[2021-05-03] MEDS: MAGNESIUM OXIDE 400MG TAB (MAG-OX) PO SCH ×2 (08:34→21:20)
[2021-05-03] MEDS: RIVAROXABAN 20 MG TAB (XARELTO) PO SCH (08:34)
[2021-05-03] MEDS: TAMSULOSIN 0.4 MG CAP PO SCH (08:34)
[2021-05-03] MEDS: HumaLOG INSULIN (NovoLOG) PER UNIT SC SCH ×4 (08:35→21:00)
[2021-05-03] MEDS: FLUTICASONE PROP 0.05% NASAL SPRAY 16 GM (FLONASE) NARES SCH (08:39)
--- NOTE | 2021-05-03 10:23 | IPNPDOC ---
Text Note Date of Service The patient was seen on 05/03/21. NOTE SUBJECTIVE: -No acute complaints OBJECTIVE: Vitals: see below GENERAL APPEARANCE: well nourished and developed, NAD HEENT: EOMI, MMM CARDIOVASCULAR: Irregularly irregular, no m/r/g LUNGS: CTAB, no crackles, wheezing or rhonchi ABDOMEN: Obese, normoactive sounds, soft, NTND INTEGUMENT: RLE purpuric rash with ulcer on the L second toe NEUROLOGICAL: CN 2-12 grossly intact /speech not dysarthric PSYCHIATRIC: A&O x 3 / able to understand and follow all commands LABORATORY DATA: Reviewed WBC 12.1 Hgb 9.6 Cr 1.43 IMAGING: CT abd/pelvis IMPRESSION: 1. Colonic diverticulosis without evidence of diverticulitis. 2. Mild mucosal enhancement and intraluminal fluid in the small bowel is nonspecific but may indicate a viral enteritis. No bowel obstruction. 3. 3 mm calculus in the urinary bladder is unchanged. No hydronephrosis. Chest xray IMPRESSION: No acute findings. MRI lumbar spine IMPRESSION: 1. Advanced degenerative spondylosis as above. Severe central spinal canal stenosis at L3-L4 and L4-L5. Severe right lateral recess stenosis at L5-S1. 2. Multilevel neural foraminal stenosis with severe foraminal stenosis from L3-L4 to L5-S1. 3. No drainable abscess or signs of discitis. Foot XR: There is soft tissue swelling of the 2nd toe in a dressing is in place. There is cortical disruption of the tip of the distal tuft suspicious for early osteomyelitis. There is osteoporosis. Postoperative changes are noted after resection of the distal tuft of the great toe. There is soft tissue swelling of the great toe. No fractures. IMPRESSION: Findings suspicious for osteomyelitis involving distal tuft of the 2nd toe. MICROBIOLOGY: Respiratory panel is neg ASSESSMENT: is a 80 yr old M w a hx of CAD, NIDDM w neuropathy, A Fib, Chronic back pain /Debility, HTN, Gout, HFpEF, DLP, & MRSA of the right toe who is admitted for Sepsis, suspected bacteremia, possible toe infection and weakness. PLAN: 1 Sepsis: Temp 101.7 or <96.8 / HR 96 / WBC 17 / RR 22 -Possible causes include bacteremia with source being infected toe (w/ possible osteo) -Continue vancomycin pending booth cx results especially given history of MRSA and sepsis with likely osteomyelitis and pip/tazo -Dc fluids at this time -Acetaminophen PRN for fever -holding losartan, Lasix and spironolactone i/s/o sepsis Second L toe infection high likely to be osteomyelitis -Elevated ESR,CRP -Foot xray suggestive of osteomyelitis -Podiatry consult on tuesday, no coverage until then -continue vanc/piptazo for now -Pending foot MRI to confirm possible osteomyelitis Weakness -2/2 infection -treat infection per above -PT/OT Asymptomatic UTI -already on broad spectrum abx Chronic Anemia -daily CBC Chronic CAD -holding BB NIDDM w neuropoathy -f/u FSBS -SSI -hypoglycemia protocol -hold metformin Longstanding persistent A Fib -c/w BB as BP permits -DOAC Chronic back pain receives spinal injections regularly to control the pain (last one was 2 weeks ago) /Debility / uses walker -To f/u w ortho as scheduled in the outpatient setting -PT/OT hx of Essential HTN / Chronic HFpEF? -hold bisoprolo, ACEI, K sparing diuretic and Lasix i/s/o sepsis DVT px : on DOAC Dispo: home after at least 2 midnights stay VS,Fishbone, I+O VS, Fishbone, I+O Laboratory Tests 05/03/21 06:12 Vital Signs Date Time Temp Pulse Resp B/P (MAP) Pulse Ox O2 Delivery O2 Flow Rate FiO2 05/03/21 06:00 97.4 63 18 134/69 (90) 98 Room Air I&O- Last 24 Hours up to 6 AM 05/03/21 06:00 Intake Total 7545 ml Output Total 2075 ml Balance 5470 ml KYRIE LE MD May 03, 2021 08:32
[2021-05-03 14:00] VITALS: BP 135/58
--- NOTE | 2021-05-03 14:45 | REP ---
INDICATION: c/f 2nd toe osteomyelitis. COMPARISON: None. TECHNIQUE: Routine scans were obtained. FINDINGS: There is marked soft tissue swelling of the tip of the 2nd toe consistent with cellulitis.. There is a destructive process involving the distal phalanx of the 2nd toe consistent with osteomyelitis. No other areas of abnormal bony signal are demonstrated. IMPRESSION: Cellulitis and osteomyelitis 2nd toe. <Electronically signed by Mango Vernon > 05/03/21 0116
[2021-05-03 22:00] VITALS: BP 128/58
[2021-05-04] MEDS: VANCOMYCIN HCL 750 MG, VIAL MATE ADAPTER 1 EACH in NS 250 ML IV SCH ×2 (02:04→14:32)
[2021-05-04] MEDS: PIPERACILLIN/TAZOBACTAM SOD 4.5 GM in D5W MINI-BAG PLUS 50 ML IV SCH ×3 (05:58→17:45)
[2021-05-04 06:00] VITALS: BP 147/67
[2021-05-04 08:00] VITALS: BP 126/62
[2021-05-04] MEDS: HumaLOG INSULIN (NovoLOG) PER UNIT SC SCH ×4 (09:07→21:00)
[2021-05-04] MEDS: MAGNESIUM OXIDE 400MG TAB (MAG-OX) PO SCH ×2 (09:07→21:48)
[2021-05-04 09:08] LABS: CALCIUM LEVEL 8.2 MG/DL (8.8-10.2); CREATININE FOR GFR 1.48 MG/DL (0.70-1.30); GLOMERULAR FILTRATION RATE 48.8 (>42); POTASSIUM SERUM 4.1 MEQ/L (3.5-5.1)
[2021-05-04] MEDS: TAMSULOSIN 0.4 MG CAP PO SCH (09:08)
[2021-05-04] MEDS: RIVAROXABAN 20 MG TAB (XARELTO) PO SCH (09:09)
[2021-05-04] MEDS: FLUTICASONE PROP 0.05% NASAL SPRAY 16 GM (FLONASE) NARES SCH (09:09)
[2021-05-04 10:46] LABS: HEMATOCRIT 31.5 % (42.0-52.0); HEMOGLOBIN 10.1 g/dl (13.5-17.5); MEAN CORPUSCULAR HGB CONC 32.1 g/dl (32.0-36.5); MEAN CORPUSCULAR VOLUME 99.7 fl (80.0-96.0); PLATELET COUNT, AUTOMATED 194 10^3/uL (150-450); RED BLOOD COUNT 3.16 10^6/uL (4.30-6.10); WHITE BLOOD COUNT 10.6 10^3/uL (4.0-10.0)
[2021-05-04 10:50] LABS: C REACTIVE PROTEIN QUANTITATIV 5.19 MG/DL (0.00-0.30); MAGNESIUM LEVEL 2.4 MG/DL (1.8-2.4)
[2021-05-04 11:30] VITALS: BP 128/68
[2021-05-04 11:40] LABS: ERYTHROCYTE SEDIMENTATION RATE 64 mm/hr (0-20)
--- NOTE | 2021-05-04 11:53 | IPNPDOC ---
Text Note Date of Service The patient was seen on 05/04/21. NOTE SUBJECTIVE: -No acute complaints OBJECTIVE: Vitals: see below GENERAL APPEARANCE: well nourished and developed, NAD HEENT: EOMI, MMM CARDIOVASCULAR: Irregularly irregular, no m/r/g LUNGS: CTAB, no crackles, wheezing or rhonchi ABDOMEN: Obese, normoactive sounds, soft, NTND INTEGUMENT: RLE purpuric rash with ulcer on the L second toe NEUROLOGICAL: CN 2-12 grossly intact /speech not dysarthric PSYCHIATRIC: A&O x 3 / able to understand and follow all commands LABORATORY DATA: Reviewed IMAGING: CT abd/pelvis IMPRESSION: 1. Colonic diverticulosis without evidence of div erticulitis. 2. Mild mucosal enhancement and intraluminal fluid in the small bowel is nonspecific but may indicate a viral enteritis. No bowel obstruction. 3. 3 mm calculus in the urinary bladder is unchanged. No hydronephrosis. Chest xray IMPRESSION: No acute findings. MRI lumbar spine IMPRESSION: 1. Advanced degenerative spondylosis as above. Severe central spinal canal stenosis at L3-L4 and L4-L5. Severe right lateral recess stenosis at L5-S1. 2. Multilevel neural foraminal stenosis with severe foraminal stenosis from L3-L4 to L5-S1. 3. No drainable abscess or signs of discitis. Foot XR: There is soft tissue swelling of the 2nd toe in a dressing is in place. There is cortical disruption of the tip of the distal tuft suspicious for early osteomyelitis. There is osteoporosis. Postoperative changes are noted after resection of the distal tuft of the great toe. There is soft tissue swelling of the great toe. No fractures. IMPRESSION: Findings suspicious for osteomyelitis involving distal tuft of the 2nd toe. MICROBIOLOGY: Respiratory panel is neg ASSESSMENT: is a 80 yr old M w a hx of CAD, NIDDM w neuropathy, A Fib, Chronic back pain /Debility, HTN, Gout, HFpEF, DLP, & MRSA of the right toe who is admitted for Sepsis, suspected bacteremia, possible toe infection and weakness. PLAN: 1 Sepsis: Temp 101.7 or <96.8 / HR 96 / WBC 17 / RR 22 -Possible causes include bacteremia with source being infected toe w/ osteo, f/u BCx NGTD -Continue vancomycin pending booth cx results especially given history of MRSA and sepsis with osteomyelitis, and pip/tazo -Acetaminophen PRN for fever -holding losartan, Lasix and spironolactone i/s/o sepsis Second L toe infection w/ osteomyelitis -Elevated ESR,CRP -Foot xray suggestive of osteomyelitis, MRI confirmed osteomyelitis -Podiatry consult w/ Dr. Hicks -continue vanc/piptazo for now Weakness -2/2 infection -treat infection per above -PT/OT Asymptomatic UTI -already on broad spectrum abx Chronic Anemia -daily CBC Chronic CAD -holding BB NIDDM w neuropoathy -f/u FSBS -SSI -hypoglycemia protocol -hold metformin Longstanding persistent A Fib -c/w BB as BP permits -to hold NoaC, with likely pending surgery for osteomyelitis Chronic back pain receives spinal injections regularly to control the pain (last one was 2 weeks ago) /Debility / uses walker -To f/u w ortho as scheduled in the outpatient setting -PT/OT hx of Essential HTN / Chronic HFpEF? -hold bisoprolo, ACEI, K sparing diuretic and Lasix i/s/o sepsis DVT px : hold Noac, with likely pending surgery for osteomyelitis Dispo: home after at least 2 midnights stay VS,Fishbone, I+O VS, Fishbone, I+O Laboratory Tests 05/04/21 08:26 Vital Signs Date Time Temp Pulse Resp B/P (MAP) Pulse Ox O2 Delivery O2 Flow Rate FiO2 05/04/21 09:08 68 141/64 05/04/21 06:00 97.8 22 96 Room Air I&O- Last 24 Hours up to 6 AM 05/04/21 06:00 Intake Total 2385 ml Output Total 1050 ml Balance 1335 ml KYRIE LE MD May 04, 2021 10:16
[2021-05-04] MEDS: bisoproloL fumarate 10 MG TAB PO SCH ×2 (12:20→21:49)
[2021-05-04 14:00] VITALS: BP 130/62
[2021-05-04] MEDS ORDERED: RIVAROXABAN 20 MG TAB (XARELTO) PO SCH (18:00)
[2021-05-04 22:00] VITALS: BP 128/63
[2021-05-05] MEDS: PIPERACILLIN/TAZOBACTAM SOD 4.5 GM in D5W MINI-BAG PLUS 50 ML IV SCH ×2 (00:20→06:02)
[2021-05-05] MEDS: VANCOMYCIN HCL 750 MG, VIAL MATE ADAPTER 1 EACH in NS 250 ML IV SCH (01:46)
[2021-05-05 04:00] VITALS: BP 142/72
--- NOTE | 2021-05-05 05:49 | CR ---
CONSULTATION DATE: 05/04/2021 REASON FOR CONSULTATION: Toe ulceration. HISTORY OF PRESENT ILLNESS: Hernan whiteside is a 80-year-old male who was admitted on 05/02 due to infection from his left foot. He states he has an ulcer from the left second toe for which he has been going to the wound care center. The wound had worsened and there had been redness and drainage coming from that ulceration. PAST MEDICAL HISTORY: Significant for chronic coronary artery disease, diabetes with neuropathy, atrial fibrillation, chronic back pain, hypertension, gout, hyperlipidemia. SURGICAL HISTORY: Includes cholecystectomy, shoulder arthroscopy. SOCIAL HISTORY: Former smoker. Positive for alcohol use. FAMILY HISTORY: Noncontributory. ALLERGIES: ZOLPIDEM. REVIEW OF SYSTEMS: He denies nausea, vomiting, fever or chills. Vitals are reviewed. He has been afebrile, the last few days. LABORATORY DATA: Labs are reviewed. White blood cell count is trending downwards to 10.6. His erythrocyte sedimentation rate (ESR) is 64 today. C-reactive protein 5.19. IMAGING STUDIES: Foot x-ray and MRIs have findings consistent with osteomyelitis to the distal second toe, distal phalanx. PHYSICAL EXAMINATION: Lower extremity examination: There is minimal erythema to the toe. There is an ulceration to the distal left second toe with positive probe to bone. No purulent drainage is noted. There is a hammertoe deformity present. ASSESSMENT: 80-year-old diabetic male with second hammertoe and distal phalanx osteomyelitis left second toe. PLAN: Bedside wound debridement was performed. Excision of fascia using dermal curette including subcutaneous tissue and bone. Following this, a flexor tenotomy was performed. 3 ml of 1% lidocaine plan injected in the second toe using a 20 gauge needle, two planar incisions were made and the flexor tendon was transected in order to help straighten the toe to decrease the deformity, which is causing the ulceration. Following this, the toe was dressed with a Betadine gauze and dressing. Wound care order was written. I suspect the patient will be able to be discharged in the next day or two. He has a wound are appointment already scheduled for this . He should follow up with someone at the wound care center and should follow up with me in my office within one week.
[2021-05-05 07:02] LABS: HEMATOCRIT 27.8 % (42.0-52.0); HEMOGLOBIN 9.2 g/dl (13.5-17.5); MEAN CORPUSCULAR HEMOGLOBIN 32.4 pg (27.0-33.0); MEAN CORPUSCULAR HGB CONC 33.1 g/dl (32.0-36.5); MEAN CORPUSCULAR VOLUME 97.9 fl (80.0-96.0); PLATELET COUNT, AUTOMATED 193 10^3/uL (150-450); RED BLOOD COUNT 2.84 10^6/uL (4.30-6.10); WHITE BLOOD COUNT 8.5 10^3/uL (4.0-10.0)
[2021-05-05 07:23] LABS: CALCIUM LEVEL 7.9 MG/DL (8.8-10.2); CREATININE FOR GFR 1.26 MG/DL (0.70-1.30); GLOMERULAR FILTRATION RATE 58.8 (>42); POTASSIUM SERUM 4.1 MEQ/L (3.5-5.1)
[2021-05-05] MEDS: TAMSULOSIN 0.4 MG CAP PO SCH (07:48)
[2021-05-05 07:49] VITALS: BP 144/82
[2021-05-05] MEDS: MAGNESIUM OXIDE 400MG TAB (MAG-OX) PO SCH (07:49)
[2021-05-05] MEDS: bisoproloL fumarate 10 MG TAB PO SCH (07:49)
[2021-05-05] MEDS: FLUTICASONE PROP 0.05% NASAL SPRAY 16 GM (FLONASE) NARES SCH (07:50)
[2021-05-05] MEDS: HumaLOG INSULIN (NovoLOG) PER UNIT SC SCH ×2 (07:50→12:14)
[2021-05-05] MEDS ORDERED: DOXYCYCLINE HYCLATE 100MG TABLET PO SCH (09:00)
[2021-05-05] MEDS ORDERED: CEPH500C PO (09:48)
[2021-05-05] MEDS ORDERED: DOXY100T PO (09:48)
[2021-05-05] MEDS ORDERED: PROBCAP14 PO (09:48)
[2021-05-05] MEDS ORDERED: BACI1CAP4 PO (09:48)
--- NOTE | 2021-05-05 12:03 | DS.PDOC ---
Discharge Summary General Date of Admission May 02, 2021 at 00:36 Date of Discharge 05/05/2021 Attending Physician: KYRIE LE MD Discharge Summary PROCEDURES PERFORMED DURING STAY: R 2nd toe bedside debridement by podiatry on 05/04 ADMITTING DIAGNOSES: Sepsis CURT UTI 2nd R toe infection DISCHARGE DIAGNOSES: Sepsis CURT Methicillin sensitive staph epi UTI 2nd R toe cellulitis and osteomyelitis chronic coronary artery disease diabetes with neuropathy Chronic atrial fibrillation Chronic back pain hypertension gout hyperlipidemia COMPLICATIONS/CHIEF COMPLAINT: Curt, Sepsis, Uti. HISTORY OF PRESENT ILLNESS: 80 yo M with a history of chronic coronary artery disease, diabetes with neuropathy, atrial fibrillation, chronic back pain, hypertension, gout, hyperlipidemia and a history of R great toe wound that was managed by Dr. Bañuelos's office who presented to the ED reporting legs & knees suddenly started shaking at about 2PM the day before presentation, and he had a fever, difficulty standing up because he felt weak & blood in his urine, without any n/v/d or pain in any other part of his body particularly no chest pain, palpitations or dizziness. HOSPITAL COURSE: In the ED he met sepsis criteria with Temp 101.7 / HR 96 / WBC 17 / RR 22, but thankfully was normotensive. He was given IVF and started on empiric vanc/piptazo and UA was positive while 2nd R toe was noted to have a draining wound and imaging all the way to an MRI eventually showed osteomyelitis. Leukocytosis and fever eventually resolved and podiatry performed a bedside debridement on 05/04 and recommended a course of PO doxy for 7d and prompt wound care follow up as well as follow up with him within 1 week where he will assess for potential outpatient amputation. UTI is being treated with keflex given that it was staph epi that is resistance to doxy, bactrim and otherwise methicillin sensitive. He will complete a 7d course of that as well. I will also place him on a probiotic. He worked with PT and was cleared for home discharge with home PT. DISCHARGE MEDICATIONS: Please see below. ALLERGIES: Please see below. PHYSICAL EXAMINATION ON DISCHARGE: VITAL SIGNS: Please see below. Vitals: see below GENERAL APPEARANCE: well nourished and developed, NAD HEENT: EOMI, MMM CARDIOVASCULAR: Irregularly irregular, no m/r/g LUNGS: CTAB, no crackles, wheezing or rhonchi ABDOMEN: Obese, normoactive sounds, soft, NTND INTEGUMENT: RLE purpuric rash with ulcer on the L second toe now in a dressing that is c/d/i NEUROLOGICAL: CN 2-12 grossly intact /speech not dysarthric PSYCHIATRIC: A&O x 3 / able to understand and follow all commands LABORATORY DATA: Please see below. IMAGING: CT abd/pelvis IMPRESSION: 1. Colonic diverticulosis without evidence of diverticulitis. 2. Mild mucosal enhancement and intraluminal fluid in the small bowel is nonspecific but may indicate a viral enteritis. No bowel obstruction. 3. 3 mm calculus in the urinary bladder is unchanged. No hydronephrosis. Chest xray IMPRESSION: No acute findings. MRI lumbar spine IMPRESSION: 1. Advanced degenerative spondylosis as above. Severe central spinal canal stenosis at L3-L4 and L4-L5. Severe right lateral recess stenosis at L5-S1. 2. Multilevel neural foraminal stenosis with severe foraminal stenosis from L3-L4 to L5-S1. 3. No drainable abscess or signs of discitis. R foot XR: There is soft tissue swelling of the 2nd toe in a dressing is in place. There is cortical disruption of the tip of the distal tuft suspicious for early osteomyelitis. There is osteoporosis. Postoperative changes are noted after resection of the distal tuft of the great toe. There is soft tissue swelling of the great toe. No fractures. IMPRESSION: Findings suspicious for osteomyelitis involving distal tuft of the 2nd toe. R foot MRI: There is marked soft tissue swelling of the tip of the 2nd toe consistent with cellulitis.. There is a destructive process involving the distal phalanx of the 2nd toe consistent with osteomyelitis. No other areas of abnormal bony signal are demonstrated. IMPRESSION: Cellulitis and osteomyelitis 2nd toe. PROGNOSIS: Good ACTIVITY: As tolerated DIET: Consistent carb, 2g sodium DISCHARGE PLAN: Home with close podiatry and wound care follow up within 1 week of discharge. PCP within 7d DISPOSITION: Home DISCHARGE INSTRUCTIONS: Home with close podiatry and wound care follow up within 1 week of discharge. PCP within 7d. Doxy and keflex for 7d. Also probiotic with meals. ITEMS TO FOLLOWUP ON ON OUTPATIENT: R 2nd toe wound and osteomyelitis UTI resolution PCP follow up DISCHARGE CONDITION: Stable TIME SPENT ON DISCHARGE: 60 minutes. Vital Signs/I&Os Vital Signs Date Time Temp Pulse Resp B/P (MAP) Pulse Ox O2 Delivery O2 Flow Rate FiO2 8/17/21 07:49 72 144/82 05/05/21 04:00 97.5 17 98 Room Air I&O- Last 24 Hours up to 6 AM 05/05/21 06:00 Intake Total 925 ml Output Total 1025 ml Balance -100 ml Laboratory Data Labs 24H Laboratory Tests 2 05/04/21 11:19: Bedside Glucose (Misc Panel) 154H 05/04/21 13:02: Vancomycin Level Trough 15.0 05/04/21 17:02: Bedside Glucose (Misc Panel) 118H 05/04/21 21:01: Bedside Glucose (Misc Panel) 155H 05/05/21 06:21: Nucleated Red Blood Cells % (auto) 0.0, Anion Gap 5L, Glomerular Filtration Rate 58.8, Calcium Level 7.9L CBC/BMP Laboratory Tests 05/05/21 06:21 FSBS Laboratory Tests Test 05/04/21 11:19 05/04/21 17:02 05/04/21 21:01 Range/Units Bedside Glucose (Misc Panel) 154 118 155 83-110 MG/DL Microbiology Microbiology 05/01/21 Urine Culture - Final, Complete Staphylococcus Epidermidis 05/01/21 Blood Culture - Preliminary, Resulted No Growth after 72 hours. All specime... Discharge Medications Scheduled Bacillus Coagulans/Inulin (Probiotic Formula Capsule) 1 Each Capsule, 1 CAP PO TID Bisoprolol Fumarate (Bisoprolol Fumarate) 10 Mg Tablet, 10 MG PO BID, (Reported) Cephalexin (Cephalexin) 500 Mg Capsule, 500 MG PO QID Diltiazem HCl (Diltiazem 24Hr ER) 120 Mg Cap.er.24h, 120 MG PO DAILY, (Reported) Doxycycline Hyclate (Doxycycline Hyclate) 100 Mg Tablet, 100 MG PO BID Fluticasone Propionate (Flonase Allergy Relief) 9.9 Ml [place].susp, 2 SPRAY NARES DAILY, (Reported) Furosemide (Furosemide) 80 Mg Tablet, 80 MG PO DAILY, (Reported) Garlic (Garlic) 1 Each Tablet, 150 MG PO DAILY, (Reported) Lactobacillus Acidophilus (Probiotic) 1 Each Capsule, 1 CAP PO TID Losartan Potassium (Cozaar) 100 Mg Tablet, 100 MG PO DAILY, (Reported) Magnesium Oxide (Magnesium Oxide) 400 Mg Tablet, 400 MG PO BID, (Reported) Metformin HCl (Metformin HCl ER) 500 Mg Tab.er.24h, 1,000 MG PO QHS, (Reported) Multivit-Min/FA/Lycopen/Lutein (Centrum Silver Tablet) 1 Each Tablet, 1 TAB PO DAILY, (Reported) [place]-3 Fatty Acids/Fish Oil (Fish Oil 1,000 mg Capsule) 1,000 Mg Cap, 1,000 MG PO DAILY, (Reported) Rivaroxaban (Xarelto) 20 Mg Tablet, 20 MG PO DAILY, (Reported) Sitagliptin Phosphate (Januvia) 100 Mg Tablet, 100 MG PO DAILY, (Reported) Spironolactone (Spironolactone) 25 Mg Tablet, 12.5 MG PO DAILY, (Reported) Tamsulosin HCl (Flomax) 0.4 Mg Capsule, 0.4 MG PO DAILY, (Reported) Allergies Coded Allergies: zolpidem (Verified Adverse Reaction, Intermediate, BECOMES BELLIGERENT AND MEAN, 06/08/19) KYRIE LE MD May 05, 2021 09:32
[2021-05-05] MEDS ORDERED: CEPHALEXIN 500 MG CAP PO SCH (13:00)
== END 2021-05-05 15:00 | disposition home health service (06) | DRG 854 ==
LOC: M ED 16:59 → M ED INP 05-02 00:36 → ENRESERV 05-02 05:26 → M MSPAV 05-02 06:00
PROVIDERS: ADMIT Internal Medicine; ATTEND Internal Medicine
PROC: 0L8W0ZZ Division of Left Foot Tendon, Open Approach (ICD-10-PCS; principal; 2021-05-04)
PROC: 0QBM0ZZ Excision of Left Tarsal, Open Approach (ICD-10-PCS; 2021-05-04)
DX: A41.9 Sepsis, unspecified organism (principal); M86.172 Other acute osteomyelitis, left ankle and foot; I48.11 Longstanding persistent atrial fibrillation; I50.32 Chronic diastolic (congestive) heart failure; N39.0 Urinary tract infection, site not specified; I11.0 Hypertensive heart disease with heart failure; E11.40 Type 2 diabetes mellitus with diabetic neuropathy, unspecified; M20.42 Other hammer toe(s) (acquired), left foot; B95.61 Methicillin susceptible Staphylococcus aureus infection as the cause of diseases classified elsewhere; M10.9 Gout, unspecified; E78.5 Hyperlipidemia, unspecified; Z79.899 Other long term (current) drug therapy; Z88.8 Allergy status to other drugs, medicaments and biological substances; I25.10 Atherosclerotic heart disease of native coronary artery without angina pectoris; D64.9 Anemia, unspecified

== ENCOUNTER → 2021-05-07 | Outpatient (CLI) | payer MEDICARE, BC ==
[~2021-05-07] MED LIST changes: +BACI1CAP4 PO; +CENT1TAB PO; +CEPH500C PO; +DOXY100T PO; +FLOM0.4C39 PO; +GARL1000 PO; +HIBI4LIQ EX; +LINE1TAB PO; +MUPI30CR TOP; +PHOS1TAB3 PO; +PROBCAP14 PO
[2021-05-07 15:43] LABS: BASO # 0.1 10^3/uL (0.0-0.2); BASO % 0.7 % (0.0-1.0); EOS # 0.2 10^3/uL (0.0-0.5); EOS % 2.3 % (0.0-3.0); HEMATOCRIT 30.5 % (42.0-52.0); HEMOGLOBIN 9.9 g/dl (13.5-17.5); LYMPH # 2.1 10^3/uL (1.5-5.0); LYMPH % 23.3 % (24.0-44.0); MEAN CORPUSCULAR HGB CONC 32.5 g/dl (32.0-36.5); MEAN CORPUSCULAR VOLUME 98.7 fl (80.0-96.0); MONO % 10.8 % (2.0-8.0); NEUTROPHILS # 5.7 10^3/uL (1.5-8.5); PLATELET COUNT, AUTOMATED 253 10^3/uL (150-450); RED BLOOD COUNT 3.09 10^6/uL (4.30-6.10); WHITE BLOOD COUNT 9.2 10^3/uL (4.0-10.0)
[2021-05-07 16:14] LABS: ALBUMIN 3.5 GM/DL (3.2-5.2); ALT/SGPT 28 U/L (12-78); BILIRUBIN,TOTAL 0.7 MG/DL (0.2-1.0); BLOOD UREA NITROGEN 24 MG/DL (7-18); CALCIUM LEVEL 9.1 MG/DL (8.8-10.2); CARBON DIOXIDE LEVEL 26 MEQ/L (21-32); CHLORIDE LEVEL 113 MEQ/L (98-107); CHOLESTEROL LEVEL 136 MG/DL (<200); CHOLESTEROL RISK RATIO 4.857 (<5); CREATININE FOR GFR 1.19 MG/DL (0.70-1.30); GLOMERULAR FILTRATION RATE > 60.0 (>42); GLUCOSE, FASTING 105 MG/DL (70-100); HDL CHOLESTEROL 28 MG/DL (>40); LDL CHOLESTEROL 92 MG/DL (<100); NON-HDL-C 108 MG/DL; POTASSIUM SERUM 4.1 MEQ/L (3.5-5.1); SODIUM LEVEL 143 MEQ/L (136-145); TOTAL PROTEIN 6.7 GM/DL (6.4-8.2); TRIGLYCERIDES LEVEL 78 MG/DL (<150)
== END ==
LOC: M PLALAB 12:27
PROVIDERS: ATTEND Internal Medicine
DX: E78.00 Pure hypercholesterolemia, unspecified (principal); E11.40 Type 2 diabetes mellitus with diabetic neuropathy, unspecified; D64.9 Anemia, unspecified; I11.9 Hypertensive heart disease without heart failure

== ENCOUNTER 2021-05-19 10:46 | Inpatient (IN) | payer MEDICARE, BC ==
[~2021-05-19] VITALS: Ht 182.9 cm; Wt 93.5 kg
[~2021-05-19 10:46] MED LIST changes: -GARL1000 PO; -HIBI4LIQ EX; -LINE1TAB PO; -MUPI30CR TOP; -PHOS1TAB3 PO
[2021-05-19 12:51] LABS: BASO # 0.1 10^3/uL (0.0-0.2); BASO % 0.4 % (0.0-1.0); EOS # 0.1 10^3/uL (0.0-0.5); EOS % 0.4 % (0.0-3.0); HEMATOCRIT 30.6 % (42.0-52.0); LYMPH # 2.2 10^3/uL (1.5-5.0); LYMPH % 16.3 % (24.0-44.0); MEAN CORPUSCULAR HEMOGLOBIN 31.7 pg (27.0-33.0); MEAN CORPUSCULAR HGB CONC 32.7 g/dl (32.0-36.5); MEAN CORPUSCULAR VOLUME 97.1 fl (80.0-96.0); MONO # 0.9 10^3/uL (0.0-0.8); MONO % 6.6 % (2.0-8.0); NEUTROPHILS # 10.1 10^3/uL (1.5-8.5); NEUTROPHILS % 75.9 % (36.0-66.0); PLATELET COUNT, AUTOMATED 272 10^3/uL (150-450); RED BLOOD COUNT 3.15 10^6/uL (4.30-6.10); WHITE BLOOD COUNT 13.3 10^3/uL (4.0-10.0)
[2021-05-19 13:08] LABS: ERYTHROCYTE SEDIMENTATION RATE 58 mm/hr (0-20)
[2021-05-19 14:43] LABS: C REACTIVE PROTEIN QUANTITATIV 8.88 MG/DL (0.00-0.30); CALCIUM LEVEL 9.7 MG/DL (8.8-10.2); CREATININE FOR GFR 2.07 MG/DL (0.70-1.30); GLOMERULAR FILTRATION RATE 33.1 (>35); POTASSIUM SERUM 5.2 MEQ/L (3.5-5.1)
[2021-05-19] MEDS ORDERED: HOME MED LIST COMPLETE! XX SCH (16:15)
[2021-05-19] MEDS ORDERED: GARL1000 PO (16:15)
--- NOTE | 2021-05-19 16:23 | HPEPDOC ---
General Date of Admission 05/19/21 Date of Service: May 19, 2021 Chief Complaint Fever History of Present Illness 80-year-old male with past medical history of CAD, diabetes complicated with neuropathy, atrial fibrillation, chronic back pain, hypertension, gout, hyperlipidemia, right lower extremity (first and second digit wounds) presented to emergency department with complaints of fever. Sometime last night patient reports having fever and chills and when he checked his temperature it was 101. He also noted increasing swelling, and erythema in his right lower extremity. This prompted him to come to the emergency department for further evaluation. He was recently discharged on 05/05 after being treated for urinary tract infection as well as a second right toe infection. Presently, he denies headaches, chest pain, shortness of breath, abdominal pain, nausea, vomiting, problem with urination or bowel movements. His main complaint at this time is warmth in the right lower extremity. Home Medications Scheduled Bisoprolol Fumarate (Bisoprolol Fumarate) 10 Mg Tablet, 10 MG PO BID, (Reported) Diltiazem HCl (Diltiazem 24Hr ER) 120 Mg Cap.er.24h, 120 MG PO DAILY, (Reported) Fluticasone Propionate (Flonase Allergy Relief) 9.9 Ml [place].susp, 2 SPRAY NARES DAILY, (Reported) Furosemide (Furosemide) 80 Mg Tablet, 80 MG PO DAILY, (Reported) Garlic (Garlic Oil) 1,000 Mg Capsule, 2,000 MG PO DAILY, (Reported) Losartan Potassium (Cozaar) 100 Mg Tablet, 100 MG PO DAILY, (Reported) Magnesium Oxide (Magnesium Oxide) 400 Mg Tablet, 400 MG PO BID, (Reported) Metformin HCl (Metformin HCl ER) 500 Mg Tab.er.24h, 1,000 MG PO QPM, (Reported) Multivit-Min/FA/Lycopen/Lutein (Centrum Silver Tablet) 1 Each Tablet, 1 TAB PO DAILY, (Reported) Philo-3 Fatty Acids/Fish Oil (Fish Oil 1,000 mg Capsule) 1,000 Mg Cap, 1,000 MG PO DAILY, (Reported) Rivaroxaban (Xarelto) 20 Mg Tablet, 20 MG PO DAILY, (Reported) Sitagliptin Phosphate (Januvia) 100 Mg Tablet, 100 MG PO DAILY, (Reported) Spironolactone (Spironolactone) 25 Mg Tablet, 12.5 MG PO DAILY, (Reported) Tamsulosin HCl (Flomax) 0.4 Mg Capsule, 0.4 MG PO DAILY, (Reported) Allergies Coded Allergies: zolpidem (Verified Adverse Reaction, Intermediate, BECOMES BELLIGERENT AND MEAN, 06/08/19) Past Medical History Medical History CAD NIDDM w neuropathy A Fib Chronic back pain receives spinal injections regularly to control the pain (last one was 2 weeks ago) /Debility / uses walker, Essential HTN Gout Chronic HFpEF DLP MRSA of the right toe Surgical History Cholecystectomy Right shoulder arthroscopy A-FIB/CHADSVASC A-FIB History Current/History of A-Fib/PAF?: Yes Current PO Anticoag Therapy: Yes Review of Systems Other systems 10 point review of system was negative except for what is noted in the HPI Physical Examination Other physical findings General: Lying in bed, no acute distress Head/Neck/Throat: Trachea midline, mucous membranes moist Eyes: Sclera anicteric, no erythema or discharge appreciated bilaterally Thorax: Normal respiratory effort on room air, lungs clear to auscultation bilaterally, no wheezes/rales/rhonchi Cardiovascular: Normal rate, regular rhythm, normal S1, S2; no S3, S4, rubs/gallops/murmurs Abdomen: Bowel sounds present, soft/nontender/nondistended Genitourinary: No CVA tenderness, no Aquino in place Musculoskeletal: Moving all extremities, no edema Skin: Right first toe is shortened, mallet appearing. Second toe has soft tissue laceration over the tip. There is no overt drainage that was appreciated. Neurologic: AAOx3, speech fluent and goal-directed, no focal deficits, grossly intact Vital Signs Vital Signs Date Time Temp Pulse Resp B/P (MAP) Pulse Ox O2 Delivery O2 Flow Rate FiO2 05/19/21 15:14 98.6 76 17 126/73 (90) 96 Room Air Laboratory Data Labs 24H Laboratory Tests 2 05/19/21 12:34: Lactic Acid Level 3.0*H 05/19/21 12:35: Immature Granulocyte % (Auto) 0.4, Neutrophils (%) (Auto) 75.9H, Lymphocytes (%) (Auto) 16.3L, Monocytes (%) (Auto) 6.6, Eosinophils (%) (Auto) 0.4, Basophils (%) (Auto) 0.4, Neutrophils # (Auto) 10.1H, Lymphocytes # (Auto) 2.2, Monocytes # (Auto) 0.9H, Eosinophils # (Auto) 0.1, Basophils # (Auto) 0.1, Nucleated Red Blood Cells % (auto) 0.0, Erythrocyte Sedimentation Rate 58H 05/19/21 13:42: Anion Gap 5L, Glomerular Filtration Rate 33.1L, Calcium Level 9.7, C-Reactive Protein, Quantitative 8.88H 05/19/21 15:05: CBC/BMP Laboratory Tests 05/19/21 12:35 05/19/21 13:42 Assessment/Plan #Sepsis -RLE cellulitis, and rt 2nd toe infection. -Hemodynamically stable. lactic acid is elevated. For now maintenance fluids, and follow-up on repeat lactic acid. -Broad-spectrum antibiotics until cultures are resulted. #Cellulitis -Plan as above -LE u/s to r/o dvt. 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 -Will talk to pod in the am for possible surgical cure -Trend inflam. markers. #Acute on chronic kidney injury -Likely secondary to sepsis. Continue with IV fluids. Avoid nephrotoxic medications. #HFpEF -Not in acute exacerbation at this time. Hold furosemide and spironolactone in the setting of acute kidney injury. #Atrial fibrillation -Continue with diltiazem and bisoprolol for rate control. Systemic anticoagulation with Xarelto. #DM -Hold oral diabetic medications during hospitalization. Will start sliding scale, and hypoglycemic protocol. #BPH -Continue tamsulosin #DVT ppx -On Xarelto Plan / VTE VTE Prophylaxis Ordered?: Yes LALO LIN M.D. May 19, 2021 16:02
[2021-05-19 16:24] LABS: RSV AMPLIFICATION NEGATIVE (NEGATIVE)
[2021-05-19] MEDS ORDERED: VANCOMYCIN HCL 750 MG in IV FLUID PLACE HOLDER 1 EA IV SCH (16:25)
[2021-05-19] MEDS: NS 1,000 ML IV SCH (17:23)
--- NOTE | 2021-05-19 17:26 | REP ---
INDICATION: r/o dvt. COMPARISON: Study is from December 06, 2019. Comparison TECHNIQUE: Bilateral lower extremity duplex venous scanning is performed from the groin to the ankle level. FINDINGS: The deep veins are anechoic and fully compressible from the groin to the popliteal fossa in the left and right lower extremity. Color flow imaging is homogeneous. Spectral Doppler interrogation demonstrates intact respiratory variation in flow and normal manual augmentation of flow. There is no evidence of deep vein thrombosis in the femoropopliteal veins. There is no evidence of deep vein thrombosis in the visualized calf veins. IMPRESSION: No evidence of DVT in the femoropopliteal veins. No DVT in the visible portions of the calf veins. <Electronically signed by Miko Dorman > 05/19/21 0348
[2021-05-19] MEDS: PIPERACILLIN/TAZOBACTAM SOD 3.375 GM in D5W MINI-BAG PLUS 50 ML IV SCH (18:00)
[2021-05-19 19:49] VITALS: BP 98/51
[2021-05-19] MEDS: bisoproloL fumarate 10 MG TAB PO SCH (20:11)
[2021-05-19] MEDS ORDERED: NS 1,000 ML IV ONE (20:45)
[2021-05-19] MEDS: HumaLOG INSULIN (NovoLOG) PER UNIT SC SCH (21:00)
[2021-05-19] MEDS ORDERED: VANCOMYCIN HCL 750 MG, VIAL MATE ADAPTER 1 EACH in NS 250 ML IV ONE ×2 (21:00→22:00)
[2021-05-19 22:00] VITALS: BP 113/57
[2021-05-19] MEDS ORDERED: NS 2,730 ML in IV 1 EA IV ONE (22:00)
[2021-05-19] MEDS ORDERED: GLUCOSE 4GM CHEW TABLET PO PRN (22:35)
[2021-05-19] MEDS ORDERED: DEXTROSE 50% 50 ML SYRINGE IV PRN (22:35)
[2021-05-19] MEDS ORDERED: GLUCAGON INJ 1MG VIAL SC PRN (22:35)
[2021-05-20] MEDS: NS 1,000 ML IV SCH ×4 (00:05→23:28)
[2021-05-20] MEDS: THIAMINE INJection 500 MG in NS 100 ML IV SCH ×3 (00:16→15:15)
[2021-05-20 00:25] VITALS: BP 117/58
[2021-05-20] MEDS: PIPERACILLIN/TAZOBACTAM SOD 3.375 GM in D5W MINI-BAG PLUS 50 ML IV SCH ×3 (01:58→18:41)
[2021-05-20 06:00] VITALS: BP 116/63
--- NOTE | 2021-05-20 06:06 | IPNPDOC ---
Subjective Date Seen The patient was seen on 05/20/21. Subjective Chief Complaint/HPI Patient was seen and examined at bedside this morning. He denied pain in his right lower extremity. He denied headaches, chest pain, abdominal pain, nausea, vomiting, problems with urination or bowel movements. Objective Physical Examination Other physical findings General: Lying in bed, no acute distress Head/Neck/Throat: Trachea midline, mucous membranes moist Eyes: Sclera anicteric, no erythema or discharge appreciated bilaterally Thorax: Normal respiratory effort on room air, lungs clear to auscultation bilaterally, no wheezes/rales/rhonchi Cardiovascular: Normal rate, regular rhythm, normal S1, S2; no S3, S4, rubs/gallops/murmurs Abdomen: Bowel sounds present, soft/nontender/nondistended Genitourinary: No CVA tenderness, no Aquino in place Musculoskeletal: Moving all extremities, no edema Skin: Right first toe is shortened, mallet appearing. Erythema has decreased below the markings. Second toe has soft tissue maceration over the tip. There is no overt drainage that was appreciated. Neurologic: AAOx3, speech fluent and goal-directed, no focal deficits, grossly intact Assessment /Plan Assessment #Sepsis -RLE cellulitis, and rt 2nd toe infection. -Hemodynamically stable. lactic acid is elevated. For now maintenance fluids, and follow-up on repeat lactic acid. -Broad-spectrum antibiotics until cultures are resulted. #Cellulitis -Plan as above -LE u/s to r/o dvt. 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 He had debridement done of this toe by the podiatry team recently. -No surgical intervention planned by podiatry at this time. Appreciate input #Acute on chronic kidney injury -Likely secondary to sepsis. Continue with IV fluids. Avoid nephrotoxic medications. #HFpEF -Not in acute exacerbation at this time. Hold furosemide and spironolactone in the setting of acute kidney injury. #Atrial fibrillation -Continue with diltiazem and bisoprolol for rate control. Systemic anticoagulation with Xarelto. #DM -Hold oral diabetic medications during hospitalization. Will start sliding scale, and hypoglycemic protocol. #BPH -Continue tamsulosin #DVT ppx -On Xarelto Plan/VTE VTE Prophylaxis Ordered?: Yes VS, I&O, 24H, Fishbone Vital Signs/I&O Vital Signs Date Time Temp Pulse Resp B/P (MAP) Pulse Ox O2 Delivery O2 Flow Rate FiO2 05/20/21 00:25 98.7 80 20 117/58 (77) 95 Room Air I&O- Last 24 Hours up to 6 AM 05/20/21 06:00 Intake Total 3485 ml Output Total 200 ml Balance 3285 ml Laboratory Data 24H LABS Laboratory Tests 2 05/19/21 12:34: Lactic Acid Level 3.0*H 05/19/21 12:35: Immature Granulocyte % (Auto) 0.4, Neutrophils (%) (Auto) 75.9H, Lymphocytes (%) (Auto) 16.3L, Monocytes (%) (Auto) 6.6, Eosinophils (%) (Auto) 0.4, Basophils (%) (Auto) 0.4, Neutrophils # (Auto) 10.1H, Lymphocytes # (Auto) 2.2, Monocytes # (Auto) 0.9H, Eosinophils # (Auto) 0.1, Basophils # (Auto) 0.1, Nucleated Red Blood Cells % (auto) 0.0, Erythrocyte Sedimentation Rate 58H 05/19/21 13:42: Anion Gap 5L, Glomerular Filtration Rate 33.1L, Calcium Level 9.7, C-Reactive Protein, Quantitative 8.88H 05/19/21 15:05: Coronavirus (COVID-19)(PCR) NEGATIVE, Influenza Type A (RT-PCR) NEGATIVE, Influenza Type B (RT-PCR) NEGATIVE, Respiratory Syncytial Virus (PCR) NEGATIVE 05/19/21 17:10: Lactic Acid Followup at 4 Hours 4.1*H 05/19/21 23:09: Bedside Glucose (Misc Panel) 107 05/19/21 23:18: Lactic Acid Level 1.5 CBC/BMP Laboratory Tests 05/19/21 12:35 05/19/21 13:42 Microbiology Microbiology 05/19/21 Blood Culture, Received Pending 05/19/21 Blood Culture, Received Pending LALO LIN M.D. May 20, 2021 06:05
[2021-05-20 06:36] LABS: HEMATOCRIT 25.5 % (42.0-52.0); HEMOGLOBIN 8.5 g/dl (13.5-17.5); MEAN CORPUSCULAR HEMOGLOBIN 32.7 pg (27.0-33.0); MEAN CORPUSCULAR HGB CONC 33.3 g/dl (32.0-36.5); MEAN CORPUSCULAR VOLUME 98.1 fl (80.0-96.0); PLATELET COUNT, AUTOMATED 232 10^3/uL (150-450); WHITE BLOOD COUNT 9.1 10^3/uL (4.0-10.0)
[2021-05-20 07:01] LABS: C REACTIVE PROTEIN QUANTITATIV 8.88 MG/DL (0.00-0.30); CALCIUM LEVEL 8.1 MG/DL (8.8-10.2); CREATININE FOR GFR 1.59 MG/DL (0.70-1.30); GLOMERULAR FILTRATION RATE 44.8 (>35); MAGNESIUM LEVEL 2.3 MG/DL (1.8-2.4); PHOSPHORUS LEVEL 2.7 MG/DL (2.5-4.9)
[2021-05-20 08:16] LABS: ERYTHROCYTE SEDIMENTATION RATE 58 mm/hr (0-20)
[2021-05-20] MEDS: LOSARTAN 50MG TABLET PO SCH (09:00)
[2021-05-20] MEDS: bisoproloL fumarate 10 MG TAB PO SCH ×2 (09:00→20:18)
[2021-05-20] MEDS: FUROSEMIDE 80 MG TAB PO SCH (09:00)
[2021-05-20] MEDS: TAMSULOSIN 0.4 MG CAP PO SCH (09:00)
[2021-05-20] MEDS: SPIRONOLACTONE 12.5MG PER 1/2 TABLET PO SCH (09:00)
[2021-05-20] MEDS: RIVAROXABAN 20 MG TAB (XARELTO) PO SCH (09:54)
[2021-05-20] MEDS: HumaLOG INSULIN (NovoLOG) PER UNIT SC SCH ×4 (09:54→20:17)
[2021-05-20] MEDS: MAGNESIUM OXIDE 400MG TAB (MAG-OX) PO SCH ×2 (09:56→20:18)
[2021-05-20] MEDS: FLUTICASONE PROP 0.05% NASAL SPRAY 16 GM (FLONASE) NARES SCH (10:37)
[2021-05-20] MEDS: VANCOMYCIN HCL 1,000 MG, VIAL MATE ADAPTER 1 EACH in NS 250 ML IV SCH ×2 (13:06→23:30)
[2021-05-20 14:00] VITALS: BP 116/61
--- NOTE | 2021-05-20 14:51 | CR ---
CONSULTATION DATE: 05/20/2021 REASON FOR CONSULTATION: Foot infection. Hernan Blunt is an 81-year-old male who is seen by myself for a left 2nd toe infection. He had debridement and a percutaneous tenotomy was performed. He was seen in my office last Tuesday, May 15, at which time the wound was healed and there was no infection. He states over the next few days he started feeling feverish and noted redness to his left leg. PAST MEDICAL HISTORY: Significant for: 1. Coronary artery disease. 2. Hnf-vpmytss-lajljevov diabetes with neuropathy. 3. Atrial fibrillation. 4. Chronic back pain. 5. Essential hypertension. 6. Gout. 7. Hyperlipidemia. 8. History of methicillin-resistant Staphylococcus aureus (MRSA). SURGICAL HISTORY: 1. Cholecystectomy. 2. Right shoulder arthroscopy. 3. Partial amputation of left hallux. FAMILY HISTORY: Noncontributory. ALLERGIES: ZOLPIDEM. REVIEW OF SYSTEMS: Positive for subjective fevers at home. VITAL SIGNS: He has been afebrile since admission. LABORATORY DATA: White blood cell count on admission was 13.3, today is 9.1. ESR is 58. CRP is 8.88. Lower extremity examination: There is erythema to his left anterior leg. There is no erythema to the foot, no erythema to the toe. The toe wound is fully granulated with epithelial tissue overlying. No purulent drainage is noted. ASSESSMENT: An 81-year-old diabetic male with cellulitis, left leg. PLAN: Apply mupirocin to the toe ulceration and treat the cellulitis with intravenous (IV) antibiotics until resolving. No surgical indication presently. He should be wearing thromboembolic deterrent (BERT) stockings for edema.
[2021-05-20] MEDS: MUPIROCIN 2% OINT 22 GM TUBE TOP SCH (15:15)
[2021-05-20] MEDS ORDERED: VANCOMYCIN HCL 1,000 MG, VIAL MATE ADAPTER 1 EACH in NS 250 ML IV SCH (16:00)
[2021-05-20 22:00] VITALS: BP 120/58
[2021-05-21] MEDS: PIPERACILLIN/TAZOBACTAM SOD 3.375 GM in D5W MINI-BAG PLUS 50 ML IV SCH ×2 (01:08→09:43)
[2021-05-21 06:00] VITALS: BP 148/71
[2021-05-21 07:13] LABS: HEMATOCRIT 28.7 % (42.0-52.0); HEMOGLOBIN 9.2 g/dl (13.5-17.5); MEAN CORPUSCULAR HEMOGLOBIN 31.9 pg (27.0-33.0); MEAN CORPUSCULAR HGB CONC 32.1 g/dl (32.0-36.5); MEAN CORPUSCULAR VOLUME 99.7 fl (80.0-96.0); PLATELET COUNT, AUTOMATED 244 10^3/uL (150-450); RED BLOOD COUNT 2.88 10^6/uL (4.30-6.10); WHITE BLOOD COUNT 8.3 10^3/uL (4.0-10.0)
[2021-05-21 07:45] LABS: CALCIUM LEVEL 7.9 MG/DL (8.8-10.2); CREATININE FOR GFR 1.34 MG/DL (0.70-1.30); GLOMERULAR FILTRATION RATE 54.6 (>35); MAGNESIUM LEVEL 2.3 MG/DL (1.8-2.4); PHOSPHORUS LEVEL 2.2 MG/DL (2.5-4.9); POTASSIUM SERUM 4.6 MEQ/L (3.5-5.1)
[2021-05-21] MEDS: HumaLOG INSULIN (NovoLOG) PER UNIT SC SCH ×4 (09:43→20:19)
[2021-05-21] MEDS: SPIRONOLACTONE 12.5MG PER 1/2 TABLET PO SCH ×2 (09:44→16:22)
[2021-05-21] MEDS: bisoproloL fumarate 10 MG TAB PO SCH ×2 (09:44→20:27)
[2021-05-21] MEDS: RIVAROXABAN 20 MG TAB (XARELTO) PO SCH (09:44)
[2021-05-21] MEDS: FUROSEMIDE 80 MG TAB PO SCH (09:45)
[2021-05-21] MEDS: MAGNESIUM OXIDE 400MG TAB (MAG-OX) PO SCH ×2 (09:45→20:22)
[2021-05-21] MEDS: LOSARTAN 50MG TABLET PO SCH (09:46)
[2021-05-21] MEDS: FLUTICASONE PROP 0.05% NASAL SPRAY 16 GM (FLONASE) NARES SCH (09:46)
[2021-05-21] MEDS: TAMSULOSIN 0.4 MG CAP PO SCH (09:46)
[2021-05-21] MEDS: MUPIROCIN 2% OINT 22 GM TUBE TOP SCH (09:47)
[2021-05-21] MEDS: NS 1,000 ML IV SCH (09:48)
[2021-05-21] MEDS: VANCOMYCIN HCL 1,000 MG, VIAL MATE ADAPTER 1 EACH in NS 250 ML IV SCH (13:07)
[2021-05-21 14:00] VITALS: BP 114/56
[2021-05-21] MEDS ORDERED: PIPERACILLIN/TAZOBACTAM SOD 3.375 GM in D5W MINI-BAG PLUS 50 ML IV SCH (16:00)
[2021-05-21] MEDS ORDERED: K-PHOS ORIGINAL (POT.ACID PHOSPHATE) 500MG TAB PO ONE (16:00)
[2021-05-21 22:00] VITALS: BP 167/80
[2021-05-22] MEDS: VANCOMYCIN HCL 1,000 MG, VIAL MATE ADAPTER 1 EACH in NS 250 ML IV SCH ×3 (00:30→23:44)
[2021-05-22 06:00] VITALS: BP 148/71
[2021-05-22] MEDS: HumaLOG INSULIN (NovoLOG) PER UNIT SC SCH ×4 (07:30→21:00)
[2021-05-22 07:39] LABS: HEMATOCRIT 24.4 % (42.0-52.0); HEMOGLOBIN 8.1 g/dl (13.5-17.5); MEAN CORPUSCULAR HEMOGLOBIN 32.4 pg (27.0-33.0); MEAN CORPUSCULAR HGB CONC 33.2 g/dl (32.0-36.5); MEAN CORPUSCULAR VOLUME 97.6 fl (80.0-96.0); PLATELET COUNT, AUTOMATED 221 10^3/uL (150-450); WHITE BLOOD COUNT 6.9 10^3/uL (4.0-10.0)
[2021-05-22 08:03] LABS: BLOOD UREA NITROGEN 15 MG/DL (7-18); CALCIUM LEVEL 7.9 MG/DL (8.8-10.2); CARBON DIOXIDE LEVEL 23 MEQ/L (21-32); CHLORIDE LEVEL 110 MEQ/L (98-107); CREATININE FOR GFR 1.21 MG/DL (0.70-1.30); GLOMERULAR FILTRATION RATE > 60.0 (>35); GLUCOSE, FASTING 96 MG/DL (70-100); PHOSPHORUS LEVEL 2.2 MG/DL (2.5-4.9); SODIUM LEVEL 141 MEQ/L (136-145)
[2021-05-22] MEDS: MAGNESIUM OXIDE 400MG TAB (MAG-OX) PO SCH ×2 (09:38→21:43)
[2021-05-22] MEDS: RIVAROXABAN 20 MG TAB (XARELTO) PO SCH (09:38)
[2021-05-22] MEDS: FUROSEMIDE 80 MG TAB PO SCH (09:38)
[2021-05-22] MEDS: TAMSULOSIN 0.4 MG CAP PO SCH (09:38)
[2021-05-22] MEDS: LOSARTAN 50MG TABLET PO SCH (09:39)
[2021-05-22] MEDS: FLUTICASONE PROP 0.05% NASAL SPRAY 16 GM (FLONASE) NARES SCH (09:39)
[2021-05-22] MEDS: MUPIROCIN 2% OINT 22 GM TUBE TOP SCH (09:39)
[2021-05-22] MEDS: bisoproloL fumarate 10 MG TAB PO SCH ×2 (09:40→21:43)
[2021-05-22] MEDS: SPIRONOLACTONE 12.5MG PER 1/2 TABLET PO SCH (09:40)
--- NOTE | 2021-05-22 09:43 | CR ---
CONSULTATION DATE: 05/21/2021 REASON FOR CONSULTATION: Asked to consult by hospitalist for evaluation of recurrent cellulitis of the left leg. HISTORY OF PRESENT ILLNESS: Mr. Blunt is a pleasant 80-year-old gentleman who was admitted to [facility] on 05/02, discharged on 05/05 with cellulitis of the left lower extremity. The patient was treated with ceftriaxone and vancomycin and discharged home on by mouth Keflex four times a day for seven days and doxycycline 100 mg by mouth twice a day for seven day as well. He finished his antibiotics around 05/12 and was doing well. The erythema had markedly improved. The patient was readmitted on 05/19 about a week after he finished his antibiotics with recurrent left lower extremity cellulitis. The patient was started on broad-spectrum antibiotics including IV vancomycin and Zosyn. His fever resolved within 24 hours, his white count had decreased from 13.3 to 8.3, erythrocyte sedimentation rate (ESR) was 58, C-reactive protein 8.8. He had mild lactic acidosis. His MRI done on his left foot on the previous admission second toe showed osteomyelitis, but clinically the wound had been improving. He follows up with Dr. Bañuelos weekly. The patient also has a history of left big toe cellulitis, which was completely healed. Cultures were positive for Staphylococcus coagulase negative. PAST MEDICAL HISTORY: Significant for coronary artery disease, diabetes with neuropathy, atrial fibrillation, chronic back pain, hypertension, gout, hyperlipidemia, right lower extremity osteomyelitis, first and second toe. Essential hypertension, gout chronic back pain, dyslipidemia, history of methicillin-resistant Staphylococcus aureus (MRSA) of the right foot. SURGICAL HISTORY: Cholecystectomy, right shoulder arthroscopy and cervical disk surgery done by Dr. Chin. REVIEW OF SYSTEMS: He denied any nausea, vomiting, diarrhea. No abdominal pain. No nausea or vomiting. No cough. He has mild shortness of breath with exertion, which is unchanged for him. The patient had a fever on admission, which has resolved within less than 24 hours. Heart normal. PHYSICAL EXAMINATION: Temperature is 97.6, pulse 66, respirations 16, blood pressure 114/56, O2 saturation 96% on room air. Heart: Normal S1, S2. No murmurs, rubs or gallops, distant. Lungs: Clear. No wheezes, rales or rhonchi. Abdomen: Obese, soft, nontender. Back: No costovertebral angle (CVA) tenderness. Extremities: Right leg with no clubbing or cyanosis, left foot. Big toe also has completely healed with scar in the left second toe, left big toe has a healed scar, left second toe has a small ulcer measuring 1 x 0.5 cm with no surrounding cellulitis or erythema. He has cellulitis along the anterior schmidt about 20 cm x 10 cm slightly tender to touch. Groin area with no inguinal adenopathy, no lymphangitic spread. Neurological examination: Alert and oriented x3. Motor strength is normal. LABORATORY DATA: White count was 13.2 on admission, currently 8.3, hemoglobin 9.2, hematocrit 28.7, platelets 244. Erythrocyte sedimentation rate (ESR) 58. Sodium 142, potassium 4.6, chloride 114, bicarbonate 22, BUN 17 and creatinine 1.34 with glucose 125, calcium 7.9, phosphorus 2.2, magnesium 2.3. C-reactive protein 8.88. Blood cultures two sets no growth after 48 hours. Venous ultrasounds were negative of both lower extremities. IMPRESSION: This is an 81-year-old gentleman with a history of osteomyelitis of the left second toe, which still has a small ulcer, although the second looks like the osteomyelitis is healing well. He has minimal swelling, no purulent discharge, but it could still be the portal of entry for recurrent cellulitis/erysipelas. The patient had the infection. He had a full course of treatment from 05/02 to 05/12 with ceftriaxone, vancomycin followed by Keflex and doxycycline that were discontinued on 05/12 with recurrence of infection within less than a week. The patient has a history of methicillin-resistant Staphylococcus aureus (MRSA) colonization in the past and this could be methicillin-resistant Staphylococcus aureus (MRSA). We do not have any documentation of what pathogen it is at this point, but the most common is Staph and strep. PLAN: Discontinue IV Zosyn. He does not need broad-spectrum antibiotic or anaerobic coverage or pseudomonas coverage. Continue with IV vancomycin. It will cover methicillin-resistant/ sensitive Staphylococcus aureus or streptococcus. Once the patient is clinically doing better, he could be switched to linezolid 600 mg by mouth twice a day to finish a two week course. Suggest using Hibiclens body wash daily for seven days for decolonization for Staphylococcus aureus. Start Mupirocin cream intranasally, groin and axilla for decolonization for Staphylococcus to decrease risk of recurrent infection. The patient can follow up in my office in 7 to 10 days after discharge. HELIO
[2021-05-22] MEDS: K-PHOS ORIGINAL (POT.ACID PHOSPHATE) 500MG TAB PO SCH ×2 (12:43→21:43)
[2021-05-22 14:00] VITALS: BP 131/54
--- NOTE | 2021-05-22 18:29 | IPN ---
PROGRESS NOTE DATE: 05/22/2021 Mr. Blunt seems to be doing well. He denies any fever or chills. No nausea, vomiting, or diarrhea. No abdominal pain. He still has lower extremity edema and redness but markedly improved compared to admission. He has had no rigors. His appetite is great. He is anxious to go home, but the infection may recur. PHYSICAL EXAMINATION: Left leg has +2 ankle edema. Ulcer on the big toe is healed. Second toe ulcer measures 1 x 0.5 cm with no purulence. Erythema to the mid leg and calf with minimal tenderness, mostly around the ankle. LABORATORY DATA: White count 3.9, hemoglobin 8.1, hematocrit 24.4, platelets 221. Sodium 141, potassium 4, chloride 110, bicarbonate 23, BUN 15, creatinine 1.21, glucose 96, calcium 7.9, phosphorus 2.2, magnesium 2. Blood cultures: No growth after 72 hours. MEDICATIONS: Intravenous (IV) vancomycin 1 gram every 12 hours with vancomycin trough of 17.9 IMPRESSION: Lower extremity cellulitis in a patient with a history of second toe osteomyelitis of the left foot. The patient has recurrent cellulitis after 2 weeks of antibiotics on previous hospitalization. PLAN: Patient will need longer-duration therapy. Patient could be switched to oral linezolid 600 mg by mouth twice a day for 2 weeks until the patient sees me in the office in followup. 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 I would suggest decolonization with Hibiclens body wash daily for a month and mupirocin cream twice a day for 7 days, nares, axilla, and groin.
[2021-05-22 22:00] VITALS: BP 146/68
[2021-05-23 06:00] VITALS: BP 118/57
[2021-05-23] MEDS: HumaLOG INSULIN (NovoLOG) PER UNIT SC SCH (08:15)
[2021-05-23] MEDS: MAGNESIUM OXIDE 400MG TAB (MAG-OX) PO SCH (08:15)
[2021-05-23] MEDS: K-PHOS ORIGINAL (POT.ACID PHOSPHATE) 500MG TAB PO SCH (08:16)
[2021-05-23] MEDS: TAMSULOSIN 0.4 MG CAP PO SCH (08:16)
[2021-05-23] MEDS: RIVAROXABAN 20 MG TAB (XARELTO) PO SCH (08:16)
[2021-05-23 08:19] VITALS: BP 140/75
[2021-05-23] MEDS: LOSARTAN 50MG TABLET PO SCH (08:19)
[2021-05-23] MEDS: FUROSEMIDE 80 MG TAB PO SCH (08:19)
[2021-05-23] MEDS: bisoproloL fumarate 10 MG TAB PO SCH (08:19)
[2021-05-23] MEDS: SPIRONOLACTONE 12.5MG PER 1/2 TABLET PO SCH (08:20)
[2021-05-23] MEDS: MUPIROCIN 2% OINT 22 GM TUBE TOP SCH (08:20)
[2021-05-23] MEDS: FLUTICASONE PROP 0.05% NASAL SPRAY 16 GM (FLONASE) NARES SCH (08:20)
[2021-05-23] MEDS ORDERED: HIBI4LIQ EX (10:16)
[2021-05-23] MEDS ORDERED: MUPI30CR TOP (10:16)
[2021-05-23] MEDS ORDERED: LINE1TAB PO (10:16)
[2021-05-23] MEDS ORDERED: PHOS1TAB3 PO (11:42)
--- NOTE | 2021-05-23 14:15 | IPNPDOC ---
Subjective Date Seen The patient was seen on 05/21/21. Subjective Chief Complaint/HPI Patient was seen and examined at bedside this morning. He reports he feels the redness in his leg has decreased. He reported feeling well. He had no new complaints. Other systems 10 point review of system was negative except for what is noted in the HPI Objective Physical Examination Other physical findings General: Lying in bed, no acute distress Head/Neck/Throat: Trachea midline, mucous membranes moist Eyes: Sclera anicteric, no erythema or discharge appreciated bilaterally Thorax: Normal respiratory effort on room air, lungs clear to auscultation bilaterally, no wheezes/rales/rhonchi Cardiovascular: Normal rate, regular rhythm, normal S1, S2; no S3, S4, rubs/gallops/murmurs Abdomen: Bowel sounds present, soft/nontender/nondistended Genitourinary: No CVA tenderness, no Aquino in place Musculoskeletal: Moving all extremities, no edema Skin: Right first toe is shortened, mallet appearing. Erythema has decreased below the markings. Second toe has soft tissue maceration over the tip. There is no overt drainage that was appreciated. Neurologic: AAOx3, speech fluent and goal-directed, no focal deficits, grossly intact Assessment /Plan Assessment #Sepsis -LLE cellulitis, and rt 2nd toe infection. -Hemodynamically stable. lactic acid is elevated. DC fluids. -Broad-spectrum antibiotics -blood cultures are negative, MRI findings of osteomyelitis would predispose him to possible long-term antibiotics if no surgical intervention is planned by podiatry team which is the case. We will touch base with infectious disease team to determine antibiotic regimen fit for Mr. Blunt. #Cellulitis -Plan as above -LE u/s to r/o dvt. 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 He had debridement done of this toe by the podiatry team recently. -No surgical intervention planned by podiatry at this time. Appreciate input #Acute on chronic kidney injury -Likely secondary to sepsis. Continue with IV fluids. Avoid nephrotoxic medications. #HFpEF -Not in acute exacerbation at this time. Hold furosemide and spironolactone in the setting of acute kidney injury. #Atrial fibrillation -Continue with diltiazem and bisoprolol for rate control. Systemic anticoagulation with Xarelto. #DM -Hold oral diabetic medications during hospitalization. Will start sliding scale, and hypoglycemic protocol. #BPH -Continue tamsulosin #DVT ppx -On Xarelto Plan/VTE VTE Prophylaxis Ordered?: Yes VS, I&O, 24H, Fishbone Vital Signs/I&O Vital Signs Date Time Temp Pulse Resp B/P (MAP) Pulse Ox O2 Delivery O2 Flow Rate FiO2 05/21/21 14:00 97.6 66 16 114/56 (75) 96 Room Air I&O- Last 24 Hours up to 6 AM 05/21/21 06:00 Intake Total 4237.5 ml Output Total 1300 ml Balance 2937.5 ml Laboratory Data 24H LABS Laboratory Tests 2 05/20/21 16:25: Bedside Glucose (Misc Panel) 120H 05/20/21 20:17: Bedside Glucose (Misc Panel) 171H 05/21/21 05:26: Bedside Glucose (Misc Panel) 127H 05/21/21 06:58: Nucleated Red Blood Cells % (auto) 0.0, Anion Gap 6L, Glomerular Filtration Rate 54.6, Calcium Level 7.9L, Phosphorus Level 2.2L, Magnesium Level 2.3 05/21/21 11:22: Vancomycin Level Trough 14.7 05/21/21 11:31: Bedside Glucose (Misc Panel) 165H CBC/BMP Laboratory Tests 05/21/21 06:58 Microbiology Microbiology 05/19/21 Blood Culture - Preliminary, Resulted No growth after 24 hours . All specim... 05/19/21 Blood Culture - Preliminary, Resulted No growth after 24 hours . All specim... LALO LIN M.D. May 21, 2021 15:43
--- NOTE | 2021-05-23 14:24 | DS.PDOC ---
Discharge Summary General Date of Admission May 19, 2021 at 15:59 Date of Discharge 05/23/21 Discharge Summary PROCEDURES PERFORMED DURING STAY: [None]. DISCHARGE DIAGNOSES: 1. Sepsis 2. Cellulitis 3. Second toe osteomyelitis COMPLICATIONS/CHIEF COMPLAINT: Cellulitis,Sepsis. HOSPITAL COURSE: 81-year-old male with apast medical history of CAD, diabetes complicated with neuropathy, atrial fibrillation, chronic back pain, hypertension, gout, hyperlipidemia, left leg cellulitis, and left second toe osteomyelitis presented to emergency department with complaints of fever and left lower leg erythema. Prior to this hospitalization, he was seen for similar complaints with 2 weeks of antibiotics. He was admitted for recurrent cellulitis. He was started on broad-spectrum antibiotics including Zosyn and vancomycin; eventually just vancomycin due to his prior history of MRSA. This helped significantly improve his cellulitis. He was evaluated by the infectious disease team and it was recommended for him to be discharged on linezolid 600 mg twice daily. He was also instructed to undergo decolonization with chlorhexidine body wash, and mupirocin cream to the nares, axilla, and groin region. Of note, his MRI and his last admission did show second toe osteomyelitis. This was again evaluated by the surgical team and it was felt no acute surgical intervention was required (he has had previous debridement in the past). The patient is to follow-up with Dr. Kapadia in 7 to 10 days of discharge. Of note, home health was arranged for him for wound care, as well as physical therapy. DISCHARGE MEDICATIONS: Please see below. ALLERGIES: Please see below. PHYSICAL EXAMINATION ON DISCHARGE: General: Lying in bed, no acute distress Head/Neck/Throat: Trachea midline, mucous membranes moist Eyes: Sclera anicteric, no erythema or discharge appreciated bilaterally Thorax: Normal respiratory effort on room air, lungs clear to auscultation bilaterally, no wheezes/rales/rhonchi Cardiovascular: Normal rate, regular rhythm, normal S1, S2; no S3, S4, rubs/gallops/murmurs Abdomen: Bowel sounds present, soft/nontender/nondistended Genitourinary: No CVA tenderness, no Aquino in place Musculoskeletal: Moving all extremities, no edema Skin: Left lower extremity erythema has decreased below the markings, and is nearly resolved. Second toe has soft tissue maceration has improved. There is no overt drainage that was appreciated. Neurologic: AAOx3, speech fluent and goal-directed, no focal deficits, grossly intact LABORATORY DATA: Please see below. IMAGING: Vascular ultrasound impression: No evidence of DVT in the femoropopliteal veins. No DVT in the visible portions of the calf veins. Time spent on discharge 30 minutes. Vital Signs/I&Os Vital Signs Date Time Temp Pulse Resp B/P (MAP) Pulse Ox O2 Delivery O2 Flow Rate FiO2 05/23/21 08:19 84 140/75 05/23/21 06:00 98.0 18 97 Room Air I&O- Last 24 Hours up to 6 AM 05/23/21 06:00 Intake Total 2890 ml Output Total 2675 ml Balance 215 ml Laboratory Data Labs 24H Laboratory Tests 2 05/22/21 10:57: Vancomycin Level Trough 17.9 05/22/21 11:32: Bedside Glucose (Misc Panel) 159H 05/22/21 16:47: Bedside Glucose (Misc Panel) 126H 05/22/21 21:18: Bedside Glucose (Misc Panel) 164H 05/23/21 05:32: Bedside Glucose (Misc Panel) 115H FSBS Laboratory Tests Test 05/22/21 11:32 05/22/21 16:47 05/22/21 21:18 05/23/21 05:32 Range/Units Bedside Glucose (Misc Panel) 159 126 164 115 83-110 MG/DL Microbiology Microbiology 05/19/21 Blood Culture - Preliminary, Resulted No Growth after 72 hours. All specime... 05/19/21 Blood Culture - Preliminary, Resulted No Growth after 72 hours. All specime... Discharge Medications Scheduled Bisoprolol Fumarate (Bisoprolol Fumarate) 10 Mg Tablet, 10 MG PO BID, (Reported) Chlorhexidine Gluconate (Hibiclens) 118 Ml Liquid, 4 % EX DAILY Diltiazem HCl (Diltiazem 24Hr ER) 120 Mg Cap.er.24h, 120 MG PO DAILY, (Reported) Fluticasone Propionate (Flonase Allergy Relief) 9.9 Ml Michie.susp, 2 SPRAY NARES DAILY, (Reported) Furosemide (Furosemide) 80 Mg Tablet, 80 MG PO DAILY, (Reported) Garlic (Garlic Oil) 1,000 Mg Capsule, 2,000 MG PO DAILY, (Reported) Linezolid (Linezolid) 600 Mg Tablet, 600 MG PO BID Losartan Potassium (Cozaar) 100 Mg Tablet, 100 MG PO DAILY, (Reported) Magnesium Oxide (Magnesium Oxide) 400 Mg Tablet, 400 MG PO BID, (Reported) Metformin HCl (Metformin HCl ER) 500 Mg Tab.er.24h, 1,000 MG PO QPM, (Reported) Multivit-Min/FA/Lycopen/Lutein (Centrum Silver Tablet) 1 Each Tablet, 1 TAB PO DAILY, (Reported) Mupirocin (Mupirocin) 30 Gm Cream..g., 1 APLCT TOP TID [place]-3 Fatty Acids/Fish Oil (Fish Oil 1,000 mg Capsule) 1,000 Mg Cap, 1,000 MG PO DAILY, (Reported) Rivaroxaban (Xarelto) 20 Mg Tablet, 20 MG PO DAILY, (Reported) Sitagliptin Phosphate (Januvia) 100 Mg Tablet, 100 MG PO DAILY, (Reported) Sod Phos Di, [place]/K Phos [place] (Phospha 250 Neutral Tablet) 250 Mg Tablet, 1 TAB PO DAILY Spironolactone (Spironolactone) 25 Mg Tablet, 12.5 MG PO DAILY, (Reported) Tamsulosin HCl (Flomax) 0.4 Mg Capsule, 0.4 MG PO DAILY, (Reported) Allergies Coded Allergies: zolpidem (Verified Adverse Reaction, Intermediate, BECOMES BELLIGERENT AND MEAN, 06/08/19) LALO LIN M.D. May 23, 2021 10:22
== END 2021-05-23 12:40 | disposition home health service (06) | DRG 872 ==
LOC: M ED 10:46 → M ED INP 15:59 → M MSPAV 19:50
PROVIDERS: ADMIT Internal Medicine; ATTEND Internal Medicine
DX: A41.9 Sepsis, unspecified organism (principal); I50.32 Chronic diastolic (congestive) heart failure; L03.116 Cellulitis of left lower limb; M86.172 Other acute osteomyelitis, left ankle and foot; N17.9 Acute kidney failure, unspecified; I25.10 Atherosclerotic heart disease of native coronary artery without angina pectoris; E11.42 Type 2 diabetes mellitus with diabetic polyneuropathy; I48.91 Unspecified atrial fibrillation; M54.9 Dorsalgia, unspecified; I11.0 Hypertensive heart disease with heart failure; M10.9 Gout, unspecified; E78.5 Hyperlipidemia, unspecified; Z90.49 Acquired absence of other specified parts of digestive tract; R26.89 Other abnormalities of gait and mobility; E11.69 Type 2 diabetes mellitus with other specified complication; N40.0 Benign prostatic hyperplasia without lower urinary tract symptoms; Z79.899 Other long term (current) drug therapy; Z20.822 Contact with and (suspected) exposure to COVID-19; Z88.8 Allergy status to other drugs, medicaments and biological substances; R65.20 Severe sepsis without septic shock; L97.529 Non-pressure chronic ulcer of other part of left foot with unspecified severity; E11.621 Type 2 diabetes mellitus with foot ulcer

== ENCOUNTER → 2021-06-09 | Outpatient (CLI) | payer MEDICARE, BC ==
[~2021-06-09] MED LIST changes: +GARL1000 PO; +HIBI4LIQ EX; +LINE1TAB PO; +MUPI30CR TOP; +PHOS1TAB3 PO
[2021-06-09 13:34] LABS: BASO % 0.7 % (0.0-1.0); EOS # 0.2 10^3/uL (0.0-0.5); EOS % 2.9 % (0.0-3.0); HEMATOCRIT 28.6 % (42.0-52.0); HEMOGLOBIN 9.5 g/dl (13.5-17.5); LYMPH % 35.1 % (24.0-44.0); MEAN CORPUSCULAR HEMOGLOBIN 31.7 pg (27.0-33.0); MEAN CORPUSCULAR HGB CONC 33.2 g/dl (32.0-36.5); MEAN CORPUSCULAR VOLUME 95.3 fl (80.0-96.0); MONO # 0.7 10^3/uL (0.0-0.8); MONO % 11.7 % (2.0-8.0); NEUTROPHILS # 2.9 10^3/uL (1.5-8.5); NEUTROPHILS % 49.4 % (36.0-66.0); PLATELET COUNT, AUTOMATED 141 10^3/uL (150-450); WHITE BLOOD COUNT 5.8 10^3/uL (4.0-10.0)
[2021-06-09 13:53] LABS: ERYTHROCYTE SEDIMENTATION RATE 44 mm/hr (0-20)
== END ==
LOC: M PLALAB 09:31
PROVIDERS: ATTEND Internal Medicine Infectious Disease
DX: M86.9 Osteomyelitis, unspecified (principal)
CPT/HCPCS: 36415; 85025; 85652; 86140; G0463

== ENCOUNTER → 2021-11-17 | Outpatient (CLI) | payer MEDICARE, BC ==
[2021-11-17 11:16] LABS: BASO # 0.1 10^3/uL (0.0-0.2); BASO % 1.3 % (0.0-1.0); EOS # 0.3 10^3/uL (0.0-0.5); EOS % 3.1 % (0.0-3.0); HEMATOCRIT 31.8 % (42.0-52.0); HEMOGLOBIN 10.3 g/dl (13.5-17.5); LYMPH # 2.3 10^3/uL (1.5-5.0); LYMPH % 26.7 % (24.0-44.0); MEAN CORPUSCULAR HEMOGLOBIN 31.4 pg (27.0-33.0); MEAN CORPUSCULAR HGB CONC 32.4 g/dl (32.0-36.5); MONO # 0.8 10^3/uL (0.0-0.8); MONO % 8.7 % (2.0-8.0); NEUTROPHILS # 5.2 10^3/uL (1.5-8.5); NEUTROPHILS % 59.7 % (36.0-66.0); PLATELET COUNT, AUTOMATED 224 10^3/uL (150-450); RED BLOOD COUNT 3.28 10^6/uL (4.30-6.10); WHITE BLOOD COUNT 8.7 10^3/uL (4.0-10.0)
[2021-11-17 12:17] LABS: CREATININE, URINE 98.5 MG/DL; MALB URINE SIEMENS 51.5 MG/L; MAU/CREAT RATIO 52.2 MCG/MG (0.0-30.0)
[2021-11-17 12:19] LABS: ALBUMIN 4.1 GM/DL (3.2-5.2); BILIRUBIN,TOTAL 0.8 MG/DL (0.2-1.0); CALCIUM LEVEL 9.3 MG/DL (8.8-10.2); CHOLESTEROL RISK RATIO 3.962 (<5); CREATININE FOR GFR 1.74 MG/DL (0.70-1.30); GLOMERULAR FILTRATION RATE 40.4 (>35); MAGNESIUM LEVEL 2.6 MG/DL (1.8-2.4); POTASSIUM SERUM 5.1 MEQ/L (3.5-5.1); TOTAL PROTEIN 7.4 GM/DL (6.4-8.2); URIC ACID 8.4 MG/DL (3.5-7.2)
[2021-11-17 12:55] LABS: HEMOGLOBIN A1c 6.7 %
== END ==
LOC: M PLALAB 10:23
PROVIDERS: ATTEND Internal Medicine
DX: E11.40 Type 2 diabetes mellitus with diabetic neuropathy, unspecified (principal); I11.9 Hypertensive heart disease without heart failure; E78.00 Pure hypercholesterolemia, unspecified; M10.9 Gout, unspecified; D64.9 Anemia, unspecified

== ENCOUNTER 2022-02-19 12:08 | Outpatient (RCR) | payer MEDICARE, BC | END 2022-03-18 | LOC: M PT 12:08 | PROVIDERS: ATTEND Psychiatry & Neurology Neurology | DX: R26.89 Other abnormalities of gait and mobility (principal) ==

== ENCOUNTER → 2022-03-02 | Outpatient (CLI) | payer MEDICARE, BC ==
[2022-03-02 14:00] LABS: BASO # 0.1 10^3/uL (0.0-0.2); BASO % 0.8 % (0.0-1.0); EOS # 0.2 10^3/uL (0.0-0.5); EOS % 1.9 % (0.0-3.0); HEMATOCRIT 33.8 % (42.0-52.0); HEMOGLOBIN 11.1 g/dl (13.5-17.5); LYMPH # 2.9 10^3/uL (1.5-5.0); LYMPH % 37.2 % (24.0-44.0); MEAN CORPUSCULAR HEMOGLOBIN 32.8 pg (27.0-33.0); MEAN CORPUSCULAR HGB CONC 32.8 g/dl (32.0-36.5); MONO # 0.8 10^3/uL (0.0-0.8); MONO % 9.7 % (2.0-8.0); NEUTROPHILS % 49.9 % (36.0-66.0); PLATELET COUNT, AUTOMATED 210 10^3/uL (150-450); RED BLOOD COUNT 3.38 10^6/uL (4.30-6.10); WHITE BLOOD COUNT 7.9 10^3/uL (4.0-10.0)
[2022-03-02 14:03] LABS: APPEARANCE, URINE HAZY (CLEAR); BACTERIA, URINE AUTO NEGATIVE (NEGATIVE); BILIRUBIN, URINE AUTO NEGATIVE (NEGATIVE); BLOOD, URINE BLOOD NEGATIVE (NEGATIVE); COLOR, URINE YELLOW (YELLOW); GLUCOSE, URINE (UA) AUTO NEGATIVE (NEGATIVE); KETONE, URINE AUTO NEGATIVE (NEGATIVE); LEUKOCYTE ESTERASE, URINE AUTO 3+ (NEGATIVE); NITRITE, URINE AUTO NEGATIVE (NEGATIVE); PROTEIN, URINE AUTO NEGATIVE (NEGATIVE); RBC, URINE AUTO 2 /HPF (0-3); SPECIFIC GRAVITY URINE AUTO 1.015 (1.002-1.035); SQUAMOUS EPITHELIAL CELL UR AU 1 /HPF (0-6); TRANSITIONAL EPITHELIAL AUTO 8 /HPF; UROBILINOGEN, URINE AUTO 0.2 mg/dL (0.0-2.0); WBC, URINE AUTO 102 /HPF (0-3)
[2022-03-02 14:25] LABS: ALBUMIN 3.9 GM/DL (3.2-5.2); BILIRUBIN,TOTAL 0.6 MG/DL (0.2-1.0); CALCIUM LEVEL 8.9 MG/DL (8.8-10.2); CREATININE FOR GFR 1.97 MG/DL (0.70-1.30); HEMOGLOBIN A1c 6.9 %; MAGNESIUM LEVEL 2.5 MG/DL (1.8-2.4); POTASSIUM SERUM 4.4 MEQ/L (3.5-5.1); TOTAL PROTEIN 7.4 GM/DL (6.4-8.2); URIC ACID 9.9 MG/DL (3.5-7.2)
[2022-03-02 14:34] LABS: MALB URINE SIEMENS 35.5 MG/L; MAU/CREAT RATIO 34.4 MCG/MG (0.0-30.0)
== END ==
LOC: M PLALAB 10:48
PROVIDERS: ATTEND Internal Medicine
DX: E11.40 Type 2 diabetes mellitus with diabetic neuropathy, unspecified (principal); I11.9 Hypertensive heart disease without heart failure; M10.9 Gout, unspecified; D64.9 Anemia, unspecified

== ENCOUNTER → 2022-03-10 | Outpatient (REF) | payer MEDICARE, BC | LOC: M SFHCPLAZ 16:58 | PROVIDERS: ATTEND Internal Medicine | DX: R82.81 Pyuria (principal) ==

== ENCOUNTER → 2022-06-10 | Outpatient (CLI) | payer MEDICARE, BC ==
[2022-06-10 14:04] LABS: HEMATOCRIT 32.1 % (42.0-52.0); HEMOGLOBIN 10.7 g/dl (13.5-17.5); MEAN CORPUSCULAR HEMOGLOBIN 33.5 pg (27.0-33.0); MEAN CORPUSCULAR HGB CONC 33.3 g/dl (32.0-36.5); MEAN CORPUSCULAR VOLUME 100.6 fl (80.0-96.0); PLATELET COUNT, AUTOMATED 216 10^3/uL (150-450); RED BLOOD COUNT 3.19 10^6/uL (4.30-6.10); WHITE BLOOD COUNT 9.3 10^3/uL (4.0-10.0)
[2022-06-10 14:41] LABS: MALB URINE SIEMENS 38.2 MG/L; MAU/CREAT RATIO 37.8 MCG/MG (0.0-30.0)
[2022-06-10 14:47] LABS: ALBUMIN 3.7 GM/DL (3.2-5.2); BILIRUBIN,TOTAL 0.6 MG/DL (0.2-1.0); C REACTIVE PROTEIN QUANTITATIV 0.38 MG/DL (0.00-0.30); CALCIUM LEVEL 8.7 MG/DL (8.8-10.2); CHOLESTEROL RISK RATIO 3.74 (<5); CREATININE FOR GFR 1.82 MG/DL (0.70-1.30); FREE T4 1.01 NG/DL (0.76-1.46); GLOMERULAR FILTRATION RATE 38.3 (>35); PERCENT SATURATION 27.6 % (19.7-50.0); POTASSIUM SERUM 4.2 MEQ/L (3.5-5.1); THYROID STIMULATING HORMONE 1.31 uIU/ML (0.358-3.740); TOTAL PROTEIN 6.7 GM/DL (6.4-8.2)
[2022-06-10 14:57] LABS: HEMOGLOBIN A1c 6.5 %
== END ==
LOC: M PLALAB 11:18
PROVIDERS: ATTEND Internal Medicine Hematology
DX: E11.40 Type 2 diabetes mellitus with diabetic neuropathy, unspecified (principal); D64.9 Anemia, unspecified

== ENCOUNTER → 2022-10-29 | Outpatient (CLI) | payer MEDICARE, BC ==
[2022-10-29 10:59] LABS: HEMATOCRIT 30.2 % (42.0-52.0); HEMOGLOBIN 9.6 g/dl (13.5-17.5); MEAN CORPUSCULAR HEMOGLOBIN 32.3 pg (27.0-33.0); MEAN CORPUSCULAR HGB CONC 31.8 g/dl (32.0-36.5); MEAN CORPUSCULAR VOLUME 101.7 fl (80.0-96.0); PLATELET COUNT, AUTOMATED 240 10^3/uL (150-450); RED BLOOD COUNT 2.97 10^6/uL (4.30-6.10)
[2022-10-29 11:27] LABS: FREE T4 1.05 NG/DL (0.89-1.76); THYROID STIMULATING HORMONE 3.695 uIU/ML (0.55-4.78)
[2022-10-29 11:28] LABS: ALKALINE PHOSPHATASE 95 U/L (46-116); ALT/SGPT 17 U/L (7.0-40); AST/SGOT < 8 U/L (<34); BILIRUBIN,TOTAL 0.9 MG/DL (0.3-1.2); BLOOD UREA NITROGEN 40 MG/DL (9-23); CARBON DIOXIDE LEVEL 27 MMOL/L (20-31); CHLORIDE LEVEL 108 MMOL/L (98-107); CREATININE FOR GFR 2.11 MG/DL (0.70-1.30); GLOMERULAR FILTRATION RATE 32.3 (>35); GLUCOSE, FASTING 139 MG/DL (74-106); IRON (FE) 56 UG/DL (65-175); PERCENT SATURATION 18.7 % (19.7-50.0); POTASSIUM SERUM 5.2 MMOL/L (3.5-5.1); SODIUM LEVEL 142 MMOL/L (136-145); TOTAL IRON BINDING CAPACITY 300 UG/DL (250-425); TRIGLYCERIDES LEVEL 61 MG/DL (<150)
[2022-10-29 11:29] LABS: ALBUMIN 3.9 G/DL (3.2-5.2); CHOLESTEROL LEVEL 110 MG/DL (<200); CHOLESTEROL RISK RATIO 4.56 (<5); HDL CHOLESTEROL 24.1 MG/DL (>40); LDL CHOLESTEROL 73.7 MG/DL (<100); NON-HDL-C 86 MG/DL; TOTAL PROTEIN 6.6 G/DL (5.7-8.2)
[2022-10-29 11:31] LABS: TOTAL 25(OH) VITAMIN D 38.6 NG/ML (20.0-100.0)
[2022-10-29 11:32] LABS: VITAMIN B12 LEVEL 494 PG/ML (211-911)
[2022-10-29 11:38] LABS: CREATININE, URINE 38.6 MG/DL; MAU/CREAT RATIO 15.5 MCG/MG (0.0-30.0)
[2022-11-02 15:08] LABS: CALPROTECTIN STOOL 19 ug/g (0-120); TRANSFERRIN 244 mg/dL (149-313)
== END ==
LOC: M PLALAB 08:17
PROVIDERS: ATTEND Internal Medicine Hematology
DX: E11.40 Type 2 diabetes mellitus with diabetic neuropathy, unspecified (principal); I48.20 Chronic atrial fibrillation, unspecified; K59.1 Functional diarrhea; N39.41 Urge incontinence

== ENCOUNTER 2022-11-04 13:38 | Outpatient (CLI) | payer MEDICARE, BC ==
[~2022-11-04] VITALS: Ht 180.3 cm; Wt 93.0 kg
[~2022-11-04 13:38] MED LIST changes: +ALBUTEROL SULFATE 2.5MG/0.5ML INH NEB SOLN INH PRN; +EPINEPHrine INJ 1 MG/ML 1ML AMP IM PRN; +diphenhydrAMINE 50MG/ML VIAL IV PRN; +methylPREDNISolone 125MG 2ML VIAL IV PRN
[2022-11-04 14:00] VITALS: BP 128/56
[2022-11-04] MEDS ORDERED: FERRIC CARBOXYMALTOSE INJ 750 MG in NS 250 ML (>50kg) IV ONE ×3 (14:30)
[2022-11-04] MEDS ORDERED: NS 1,000 ML IV SCH (14:30)
[2022-11-04 15:31] VITALS: BP 163/71
== END 2022-11-04 15:30 | disposition home or self-care (01) ==
LOC: M INFU 13:38
PROVIDERS: ATTEND Internal Medicine Hematology
DX: D50.9 Iron deficiency anemia, unspecified (principal); Z88.8 Allergy status to other drugs, medicaments and biological substances
CPT/HCPCS: 96365; J1439

== ENCOUNTER → 2022-11-12 | Outpatient (CLI) | payer MEDICARE, BC ==
[~2022-11-12] MED LIST changes: -ALBUTEROL SULFATE 2.5MG/0.5ML INH NEB SOLN INH PRN; -EPINEPHrine INJ 1 MG/ML 1ML AMP IM PRN; -diphenhydrAMINE 50MG/ML VIAL IV PRN; -methylPREDNISolone 125MG 2ML VIAL IV PRN
== END ==
LOC: M PLALAB 14:47
PROVIDERS: ATTEND Physician Assistant
DX: Z12.5 Encounter for screening for malignant neoplasm of prostate (principal)
CPT/HCPCS: 36415; G0103

== ENCOUNTER → 2022-11-17 | Outpatient (CLI) | payer MEDICARE, BC ==
[~2022-11-17] MED LIST changes: +COZA100T3 PO
== END ==
LOC: M SOG 12:35 → M WUC 12:35
PROVIDERS: ATTEND Physician Assistant
DX: S43.402A Unspecified sprain of left shoulder joint, initial encounter (principal); M19.012 Primary osteoarthritis, left shoulder; X58.XXXA Exposure to other specified factors, initial encounter; Y92.9 Unspecified place or not applicable; Y93.9 Activity, unspecified; Y99.9 Unspecified external cause status

== ENCOUNTER → 2022-12-14 | Outpatient (CLI) | payer MEDICARE, BC ==
[2022-12-14 13:02] LABS: HEMATOCRIT 33.2 % (42.0-52.0); HEMOGLOBIN 10.6 g/dl (13.5-17.5); MEAN CORPUSCULAR HEMOGLOBIN 32.7 pg (27.0-33.0); MEAN CORPUSCULAR HGB CONC 31.9 g/dl (32.0-36.5); MEAN CORPUSCULAR VOLUME 102.5 fl (80.0-96.0); PLATELET COUNT, AUTOMATED 218 10^3/uL (150-450); RED BLOOD COUNT 3.24 10^6/uL (4.30-6.10)
[2022-12-14 13:14] LABS: INR 1.34; PROTHROMBIN TIME 16.8 SECONDS (12.5-14.5)
[2022-12-14 13:15] LABS: PARTIAL THROMBOPLASTIN TIME 36.7 SECONDS (24.8-34.2)
[2022-12-14 13:27] LABS: CALCIUM LEVEL 9.2 MG/DL (8.3-10.6); CREATININE FOR GFR 1.81 MG/DL (0.70-1.30); GLOMERULAR FILTRATION RATE 38.5 (>35); POTASSIUM SERUM 5.1 MMOL/L (3.5-5.1)
== END ==
LOC: M WUC 11:32
PROVIDERS: ATTEND Urology
DX: Z01.818 Encounter for other preprocedural examination (principal); N40.1 Benign prostatic hyperplasia with lower urinary tract symptoms; N39.0 Urinary tract infection, site not specified; R39.9 Unspecified symptoms and signs involving the genitourinary system; I51.7 Cardiomegaly; I70.0 Atherosclerosis of aorta

== ENCOUNTER → 2022-12-15 | Outpatient (CLI) | payer MEDICARE, BC ==
[~2022-12-15] MED LIST changes: +ELIQ2.5T PO; +OMEG10002 PO
[2022-12-15 14:08] LABS: HEMATOCRIT 33.1 % (42.0-52.0); HEMOGLOBIN 10.7 g/dl (13.5-17.5); MEAN CORPUSCULAR HEMOGLOBIN 32.7 pg (27.0-33.0); MEAN CORPUSCULAR HGB CONC 32.3 g/dl (32.0-36.5); MEAN CORPUSCULAR VOLUME 101.2 fl (80.0-96.0); PLATELET COUNT, AUTOMATED 213 10^3/uL (150-450); RED BLOOD COUNT 3.27 10^6/uL (4.30-6.10); WHITE BLOOD COUNT 6.7 10^3/uL (4.0-10.0)
[2022-12-15 14:25] LABS: CALCIUM LEVEL 9.1 MG/DL (8.3-10.6); CREATININE FOR GFR 1.86 MG/DL (0.70-1.30); GLOMERULAR FILTRATION RATE 37.3 (>35); POTASSIUM SERUM 4.7 MMOL/L (3.5-5.1)
== END ==
LOC: M PLALAB 11:53
PROVIDERS: ATTEND Internal Medicine Hematology
DX: Z01.818 Encounter for other preprocedural examination (principal); Z79.899 Other long term (current) drug therapy

== ENCOUNTER → 2022-12-17 | Outpatient (CLI) | payer MEDICARE, BC | LOC: M LABSMTC 08:36 | PROVIDERS: ATTEND Anesthesiology | DX: Z01.812 Encounter for preprocedural laboratory examination (principal); Z20.822 Contact with and (suspected) exposure to COVID-19 ==

== ENCOUNTER 2022-12-22 09:07 | Day surgery (SDC) | payer MEDICARE, BC ==
[~2022-12-22] VITALS: Ht 182.9 cm; Wt 98.4 kg
[~2022-12-22 09:07] MED LIST changes: +LIDOCAINE 2% 100MG/5ML SDV (FOR ANES.) As Ordered ONE; +ONDANSETRON 4MG 2ML VIAL As Ordered ONE; +ROCURONIUM BROMIDE 50MG/5ML VIAL As Ordered ONE; +SUGAMMADEX SODIUM 500 MG/5 ML VIAL (BRIDION) As Ordered ONE; +ceFAZolin SOD 2 GM in IV 1 EA IV ONE; +propofoL 200 MG/20 ML VIAL As Ordered ONE
[2022-12-22] MEDS ORDERED: LR 1,000 ML IV SCH (09:35)
[2022-12-22] MEDS ORDERED: SPIR-10 PO (10:41)
[2022-12-22] MEDS ORDERED: fentaNYL 100 MCG/2 ML INJECTION As Ordered ONE ×2 (12:03→13:36)
[2022-12-22] MEDS ORDERED: ACETAMINOPHEN 1000MG 100ML IV BAG As Ordered ONE (12:55)
[2022-12-22] MEDS ORDERED: GLYCOPYRROLATE INJ 0.2 MG/ML 2 ML VIAL As Ordered ONE (12:56)
[2022-12-22] MEDS ORDERED: FUROSEMIDE 100MG/10ML VIAL As Ordered ONE (13:51)
[2022-12-22] MEDS ORDERED: HYDROMORPHONE HCL 0.5 MG/ 0.5 ML SYRINGE IV PRN (14:20)
[2022-12-22] MEDS ORDERED: fentaNYL 100 MCG/2 ML INJECTION IV PRN (14:20)
[2022-12-22] MEDS ORDERED: oxyCODONE 5MG TAB PO PRN (14:20)
[2022-12-22] MEDS ORDERED: ONDANSETRON 4MG 2ML VIAL IV PRN (14:20)
[2022-12-22] MEDS ORDERED: CIPR-249 PO (14:39)
[2022-12-22] MEDS ORDERED: ACETAMINOPHEN TAB 650MG DOSE (2X325MG) PO PRN (14:50)
[2022-12-22 17:00] VITALS: BP 163/79
== END 2022-12-22 17:21 | disposition home or self-care (01) ==
LOC: M SDC 09:07
PROVIDERS: ATTEND Urology
DX: N40.1 Benign prostatic hyperplasia with lower urinary tract symptoms (principal); I48.91 Unspecified atrial fibrillation; I10 Essential (primary) hypertension; E11.9 Type 2 diabetes mellitus without complications; D64.9 Anemia, unspecified; Z79.01 Long term (current) use of anticoagulants; Z79.899 Other long term (current) drug therapy
CPT/HCPCS: 52601; J0131; J1100; J1940; J2405; J3010

== ENCOUNTER → 2023-04-20 | Outpatient (CLI) | payer MEDICARE, BC ==
[~2023-04-20] MED LIST changes: +CIPR-249 PO; -LIDOCAINE 2% 100MG/5ML SDV (FOR ANES.) As Ordered ONE; -ONDANSETRON 4MG 2ML VIAL As Ordered ONE; -ROCURONIUM BROMIDE 50MG/5ML VIAL As Ordered ONE; -SUGAMMADEX SODIUM 500 MG/5 ML VIAL (BRIDION) As Ordered ONE; -ceFAZolin SOD 2 GM in IV 1 EA IV ONE; -propofoL 200 MG/20 ML VIAL As Ordered ONE
== END ==
LOC: M PLALAB 09:59
PROVIDERS: ATTEND Internal Medicine Hematology
DX: Z01.818 Encounter for other preprocedural examination (principal)

== ENCOUNTER 2023-05-30 06:34 | Day surgery (SDC) | payer MEDICARE, BC ==
[~2023-05-30] VITALS: Ht 182.9 cm; Wt 99.3 kg
[~2023-05-30 06:34] MED LIST changes: +BSS IRRIG/VANCO(10MG)/TOBRA(5MG)/EPINEPH(1:1000-0.5CC)500ML BAG-ORONLY IR ONE; -COZA100T3 PO; +CYCLOPENTOLATE 1% OPHTH SOLN 2ML BTL OS SCH; +FLUT50SP17; +LIDOCAINE 3.5 % 1ML OPHTH TOPICAL GEL OU ONE; +LOSA-530 PO; +MAGN400T33 PO; +OFLOXACIN 0.3 % (OCUFLOX) OPTH SOL 5ML OS ONE; +PHENYLEPHRINE 10% OPHTH SOL 5ML OS PRN; +PHENYLEPHRINE 2.5% OPHTH SOL 2ML OS SCH; +TROPICAMIDE 1% OPHTH SOLN 15ML OS SCH
[2023-05-30] MEDS ORDERED: LIDOCAINE 1% SDV 5ML VIAL ONE (06:49)
[2023-05-30] MEDS ORDERED: fentaNYL 100 MCG/2 ML INJECTION ONE (06:52)
[2023-05-30] MEDS ORDERED: CEFUROXIME 1MG/0.1ML INTRACAMERAL INJ ONE (08:32)
[2023-05-30 09:14] VITALS: BP 142/72; TEMP 97.4; O2SAT 97
[2023-06-23] MEDS ORDERED: DUTA1CAP10 (09:43)
[2023-06-23] MEDS ORDERED: ALLO100T (09:43)
== END 2023-05-30 09:35 | disposition home or self-care (01) ==
LOC: M SDC 06:34
PROVIDERS: ATTEND Ophthalmology
DX: H25.12 Age-related nuclear cataract, left eye (principal); I48.91 Unspecified atrial fibrillation; I10 Essential (primary) hypertension; E11.9 Type 2 diabetes mellitus without complications; Z87.891 Personal history of nicotine dependence; Z85.51 Personal history of malignant neoplasm of bladder; Z79.899 Other long term (current) drug therapy; N40.0 Benign prostatic hyperplasia without lower urinary tract symptoms; Z88.8 Allergy status to other drugs, medicaments and biological substances
CPT/HCPCS: 66984; J0697; J3010; V2632

== ENCOUNTER 2023-06-30 07:32 | Day surgery (SDC) | payer OTHER, MEDICARE, BC ==
[~2023-06-30] VITALS: Ht 182.9 cm; Wt 102.1 kg
[~2023-06-30 07:32] MED LIST changes: +ALLO100T; +CEFUROXIME 1MG/0.1ML INTRACAMERAL INJ As Ordered ONE; +CYCLOPENTOLATE 1% OPHTH SOLN 2ML BTL OD SCH; -CYCLOPENTOLATE 1% OPHTH SOLN 2ML BTL OS SCH; +DUTA1CAP10; +LIDOCAINE 1% SDV 5ML VIAL As Ordered ONE; +OFLOXACIN 0.3 % (OCUFLOX) OPTH SOL 5ML OD ONE; -OFLOXACIN 0.3 % (OCUFLOX) OPTH SOL 5ML OS ONE; +PHENYLEPHRINE 10% OPHTH SOL 5ML OD PRN; -PHENYLEPHRINE 10% OPHTH SOL 5ML OS PRN; +PHENYLEPHRINE 2.5% OPHTH SOL 2ML OD SCH; -PHENYLEPHRINE 2.5% OPHTH SOL 2ML OS SCH; +TROPICAMIDE 1% OPHTH SOLN 15ML OD SCH; -TROPICAMIDE 1% OPHTH SOLN 15ML OS SCH; +fentaNYL 100 MCG/2 ML INJECTION As Ordered ONE
[2023-06-30] MEDS ORDERED: GLYCOPYRROLATE INJ 0.2 MG/ML 2 ML VIAL As Ordered ONE (09:45)
[2023-06-30] MEDS ORDERED: ACETYLCHOLINE OPHTH SOLN 1% 2ML (MIOCHOL-E) As Ordered ONE (10:10)
[2023-06-30 10:15] VITALS: BP 141/61; TEMP 97.6; O2SAT 96
== END 2023-06-30 10:32 | disposition home or self-care (01) ==
LOC: M SDC 07:32
PROVIDERS: ATTEND Ophthalmology
DX: H25.11 Age-related nuclear cataract, right eye (principal); I48.0 Paroxysmal atrial fibrillation; I10 Essential (primary) hypertension; Z79.01 Long term (current) use of anticoagulants; E11.40 Type 2 diabetes mellitus with diabetic neuropathy, unspecified; N40.0 Benign prostatic hyperplasia without lower urinary tract symptoms; Z79.84 Long term (current) use of oral hypoglycemic drugs; Z85.51 Personal history of malignant neoplasm of bladder; Z87.891 Personal history of nicotine dependence; M10.9 Gout, unspecified
CPT/HCPCS: 66984; J0697; J3010; V2632

== ENCOUNTER → 2023-12-15 | Outpatient (REF) | payer MEDICARE, BC ==
[~2023-12-15] MED LIST changes: -BSS IRRIG/VANCO(10MG)/TOBRA(5MG)/EPINEPH(1:1000-0.5CC)500ML BAG-ORONLY IR ONE; -CEFUROXIME 1MG/0.1ML INTRACAMERAL INJ As Ordered ONE; -CYCLOPENTOLATE 1% OPHTH SOLN 2ML BTL OD SCH; -FLUT50SP17; +FLUTISP; -LIDOCAINE 1% SDV 5ML VIAL As Ordered ONE; -LIDOCAINE 3.5 % 1ML OPHTH TOPICAL GEL OU ONE; -OFLOXACIN 0.3 % (OCUFLOX) OPTH SOL 5ML OD ONE; -PHENYLEPHRINE 10% OPHTH SOL 5ML OD PRN; -PHENYLEPHRINE 2.5% OPHTH SOL 2ML OD SCH; -TROPICAMIDE 1% OPHTH SOLN 15ML OD SCH; -fentaNYL 100 MCG/2 ML INJECTION As Ordered ONE
[2023-12-15 13:45] LABS: BASO # 0.1 10^3/uL (0.0-0.2); BASO % 0.8 % (0.0-1.0); EOS # 0.2 10^3/uL (0.0-0.5); EOS % 2.4 % (0.0-3.0); HEMATOCRIT 32.3 % (42.0-52.0); HEMOGLOBIN 10.7 g/dl (13.5-17.5); LYMPH # 3.4 10^3/uL (1.5-5.0); LYMPH % 38.6 % (24.0-44.0); MEAN CORPUSCULAR HEMOGLOBIN 32.8 pg (27.0-33.0); MEAN CORPUSCULAR HGB CONC 33.1 g/dl (32.0-36.5); MEAN CORPUSCULAR VOLUME 99.1 fl (80.0-96.0); MONO # 1.1 10^3/uL (0.0-0.8); MONO % 12.4 % (2.0-8.0); NEUTROPHILS % 45.2 % (36.0-66.0); PLATELET COUNT, AUTOMATED 234 10^3/uL (150-450); RED BLOOD COUNT 3.26 10^6/uL (4.30-6.10); WHITE BLOOD COUNT 8.8 10^3/uL (4.0-10.0)
[2023-12-15 14:02] LABS: HEMOGLOBIN A1c 6.3 % (4.0-6.0)
[2023-12-15 14:11] LABS: THYROID STIMULATING HORMONE 3.712 uIU/ML (0.55-4.78)
[2023-12-15 14:12] LABS: FREE T4 1.12 NG/DL (0.89-1.76)
[2023-12-15 14:13] LABS: TOTAL 25(OH) VITAMIN D 34.7 NG/ML (20.0-100.0)
[2023-12-15 14:14] LABS: VITAMIN B12 LEVEL 638 PG/ML (211-911)
[2023-12-15 14:19] LABS: C REACTIVE PROTEIN QUANTITATIV < 0.40 MG/DL (<1.0)
[2023-12-15 14:25] LABS: ALBUMIN 4.2 G/DL (3.2-5.2); ALKALINE PHOSPHATASE 68 U/L (46-116); ALT/SGPT 18 U/L (7.0-40); AST/SGOT 11 U/L (<34); BILIRUBIN,TOTAL 0.6 MG/DL (0.3-1.2); BLOOD UREA NITROGEN 35 MG/DL (9-23); CALCIUM LEVEL 9.6 MG/DL (8.3-10.6); CARBON DIOXIDE LEVEL 29 MMOL/L (20-31); CHLORIDE LEVEL 104 MMOL/L (98-107); GLOMERULAR FILTRATION RATE 34.2 (>35); GLUCOSE, FASTING 93 MG/DL (74-106); MAGNESIUM LEVEL 2.2 MG/DL (1.8-2.4); POTASSIUM SERUM 5.5 MMOL/L (3.5-5.1); SODIUM LEVEL 141 MMOL/L (136-145); TOTAL PROTEIN 6.9 G/DL (5.7-8.2)
[2023-12-16 10:22] LABS: IRON (FE) 109 UG/DL (65-175)
[2023-12-16 10:26] LABS: FERRITIN 213.6 NG/ML (10.5-307.3)
== END ==
LOC: M PLALAB 12:50
PROVIDERS: ATTEND Internal Medicine Hematology
DX: E11.40 Type 2 diabetes mellitus with diabetic neuropathy, unspecified (principal); Z79.899 Other long term (current) drug therapy

== ENCOUNTER → 2023-12-28 | Outpatient (CLI) | payer MEDICARE, BC | LOC: M PLALAB 11:31 | PROVIDERS: ATTEND Internal Medicine Hematology | DX: E87.5 Hyperkalemia (principal) ==

== ENCOUNTER → 2024-05-31 | Outpatient (CLI) | payer MEDICARE, BC ==
[2024-05-31 13:46] LABS: ALBUMIN 4.1 G/DL (3.2-5.2); BILIRUBIN,TOTAL 0.7 MG/DL (0.3-1.2); CREATININE FOR GFR 1.54 MG/DL (0.70-1.30); GLOMERULAR FILTRATION RATE 46.2 (>35); MAGNESIUM LEVEL 2.1 MG/DL (1.8-2.4); POTASSIUM SERUM 4.2 MMOL/L (3.5-5.1); TOTAL PROTEIN 6.9 G/DL (5.7-8.2)
== END ==
LOC: M PLALAB 10:05
PROVIDERS: ATTEND Physician Assistant Medical
DX: I50.32 Chronic diastolic (congestive) heart failure (principal); Z79.01 Long term (current) use of anticoagulants

== ENCOUNTER → 2024-06-01 | Outpatient (CLI) | payer MEDICARE, BC | LOC: M PLAIMG 09:38 | PROVIDERS: ATTEND Physician Assistant Medical | DX: I50.32 Chronic diastolic (congestive) heart failure (principal); R91.8 Other nonspecific abnormal finding of lung field ==

== ENCOUNTER → 2024-06-05 | Outpatient (CLI) | payer MEDICARE, BC ==
[2024-06-05 12:54] LABS: ALBUMIN 4.2 G/DL (3.2-5.2); BILIRUBIN,TOTAL 0.8 MG/DL (0.3-1.2); CALCIUM LEVEL 9.3 MG/DL (8.3-10.6); CREATININE FOR GFR 1.71 MG/DL (0.70-1.30); GLOMERULAR FILTRATION RATE 40.9 (>35); MAGNESIUM LEVEL 2.2 MG/DL (1.8-2.4); TOTAL PROTEIN 6.9 G/DL (5.7-8.2)
== END ==
LOC: M PLALAB 10:42
PROVIDERS: ATTEND Physician Assistant Medical
DX: I50.32 Chronic diastolic (congestive) heart failure (principal)

== ENCOUNTER → 2024-06-06 | Outpatient (CLI) | payer MEDICARE, BC | LOC: M PLAIMG 07:15 | PROVIDERS: ATTEND Physician Assistant Medical | DX: I50.32 Chronic diastolic (congestive) heart failure (principal); I27.20 Pulmonary hypertension, unspecified; I08.3 Combined rheumatic disorders of mitral, aortic and tricuspid valves ==

== ENCOUNTER → 2024-06-20 | Outpatient (CLI) | payer MEDICARE, BC ==
[~2024-06-20] MED LIST changes: +GABA-1172 PO; -GABA-282 PO
[2024-06-20 13:09] LABS: BASO # 0.1 10^3/uL (0.0-0.2); BASO % 1.1 % (0.0-1.0); EOS # 0.2 10^3/uL (0.0-0.5); EOS % 3.1 % (0.0-3.0); HEMATOCRIT 31.8 % (42.0-52.0); HEMOGLOBIN 10.5 g/dl (13.5-17.5); LYMPH # 1.9 10^3/uL (1.5-5.0); MEAN CORPUSCULAR HEMOGLOBIN 32.9 pg (27.0-33.0); MEAN CORPUSCULAR VOLUME 99.7 fl (80.0-96.0); MONO # 0.8 10^3/uL (0.0-0.8); MONO % 10.3 % (2.0-8.0); NEUTROPHILS # 4.3 10^3/uL (1.5-8.5); PLATELET COUNT, AUTOMATED 218 10^3/uL (150-450); RED BLOOD COUNT 3.19 10^6/uL (4.30-6.10); WHITE BLOOD COUNT 7.3 10^3/uL (4.0-10.0)
[2024-06-20 13:38] LABS: C REACTIVE PROTEIN QUANTITATIV < 0.40 MG/DL (<1.0)
[2024-06-20 13:40] LABS: ALKALINE PHOSPHATASE 72 U/L (46-116); ALT/SGPT 22 U/L (7.0-40); AST/SGOT 12 U/L (<34); BLOOD UREA NITROGEN 27 MG/DL (9-23); CALCIUM LEVEL 9.5 MG/DL (8.3-10.6); CARBON DIOXIDE LEVEL 27 MMOL/L (20-31); CHLORIDE LEVEL 106 MMOL/L (98-107); CHOLESTEROL LEVEL 120 MG/DL (<200); CHOLESTEROL RISK RATIO 4.59 (<5); CREATININE FOR GFR 1.51 MG/DL (0.70-1.30); GLOMERULAR FILTRATION RATE 47.2 (>35); GLUCOSE, FASTING 127 MG/DL (74-106); HDL CHOLESTEROL 26.1 MG/DL (>40); LDL CHOLESTEROL 79.5 MG/DL (<100); NON-HDL-C 93.9 MG/DL; POTASSIUM SERUM 4.2 MMOL/L (3.5-5.1); SODIUM LEVEL 138 MMOL/L (136-145); TOTAL PROTEIN 6.8 G/DL (5.7-8.2); TRIGLYCERIDES LEVEL 72 MG/DL (<150)
[2024-06-20 13:44] LABS: FERRITIN 140.9 NG/ML (10.5-307.3); FREE T4 1.41 NG/DL (0.89-1.76); THYROID STIMULATING HORMONE 2.523 uIU/ML (0.55-4.78); TOTAL 25(OH) VITAMIN D 36.8 NG/ML (20.0-100.0)
[2024-06-20 13:45] LABS: VITAMIN B12 LEVEL 533 PG/ML (211-911)
[2024-06-20 14:06] LABS: HEMOGLOBIN A1c 6.1 % (4.0-6.0)
== END ==
LOC: M PLALAB 11:37
PROVIDERS: ATTEND Internal Medicine Hematology
DX: E11.40 Type 2 diabetes mellitus with diabetic neuropathy, unspecified (principal); D64.9 Anemia, unspecified; Z79.899 Other long term (current) drug therapy

== ENCOUNTER 2024-07-11 10:34 | Outpatient (RCR) | payer MEDICARE, BC | END 2024-07-19 | LOC: M PT 10:34 | PROVIDERS: ATTEND Internal Medicine Hematology | DX: R60.0 Localized edema (principal) ==

== ENCOUNTER 2024-08-08 10:41 | Outpatient (RCR) | payer MEDICARE, BC ==
[~2024-08-08 10:41] MED LIST changes: -CYCL5TAB PO; +CYCL5TAB4 PO
== END 2024-08-18 ==
LOC: M PT 10:41
PROVIDERS: ATTEND Internal Medicine Hematology
DX: R60.0 Localized edema (principal)

== ENCOUNTER → 2024-08-15 | Outpatient (CLI) | payer MEDICARE, BC ==
[2024-08-15 14:01] LABS: HEMATOCRIT 30.4 % (42.0-52.0); HEMOGLOBIN 9.8 g/dl (13.5-17.5); MEAN CORPUSCULAR HEMOGLOBIN 32.5 pg (27.0-33.0); MEAN CORPUSCULAR HGB CONC 32.2 g/dl (32.0-36.5); MEAN CORPUSCULAR VOLUME 100.7 fl (80.0-96.0); PLATELET COUNT, AUTOMATED 254 10^3/uL (150-450); RED BLOOD COUNT 3.02 10^6/uL (4.30-6.10); WHITE BLOOD COUNT 8.1 10^3/uL (4.0-10.0)
[2024-08-15 14:06] LABS: ERYTHROCYTE SEDIMENTATION RATE 11 mm/hr (0-20)
[2024-08-15 14:24] LABS: C REACTIVE PROTEIN QUANTITATIV < 0.40 MG/DL (<1.0)
[2024-08-15 14:25] LABS: BLOOD UREA NITROGEN 29 MG/DL (9-23); CALCIUM LEVEL 9.3 MG/DL (8.3-10.6); CARBON DIOXIDE LEVEL 26 MMOL/L (20-31); CHLORIDE LEVEL 109 MMOL/L (98-107); CREATININE FOR GFR 1.74 MG/DL (0.70-1.30); GLOMERULAR FILTRATION RATE 40.1 (>35); GLUCOSE, FASTING 156 MG/DL (74-106); POTASSIUM SERUM 4.8 MMOL/L (3.5-5.1); SODIUM LEVEL 142 MMOL/L (136-145)
== END ==
LOC: M PLALAB 10:47
PROVIDERS: ATTEND Physician Assistant Medical
DX: M86.8X7 Other osteomyelitis, ankle and foot (principal); M77.32 Calcaneal spur, left foot; M19.072 Primary osteoarthritis, left ankle and foot; I50.32 Chronic diastolic (congestive) heart failure

== ENCOUNTER → 2024-08-21 | Outpatient (CLI) | payer MEDICARE, BC ==
[2024-08-21 14:29] LABS: CALCIUM LEVEL 9.7 MG/DL (8.3-10.6); CREATININE FOR GFR 1.75 MG/DL (0.70-1.30); GLOMERULAR FILTRATION RATE 39.8 (>35); POTASSIUM SERUM 3.9 MMOL/L (3.5-5.1)
== END ==
LOC: M PLALAB 09:39
PROVIDERS: ATTEND Physician Assistant Medical
DX: R60.0 Localized edema (principal)

== ENCOUNTER 2024-08-31 20:39 | Inpatient (IN) | payer MEDICARE, BC ==
[~2024-08-31] VITALS: Ht 182.9 cm; Wt 105.2 kg
[2024-08-31] MEDS: ACETAMINOPHEN *IV* 1,000 MG in IV 1 EA IV ONE (22:02)
[2024-08-31 22:05] LABS: BASO # 0.1 10^3/uL (0.0-0.2); EOS # 0.3 10^3/uL (0.0-0.5); EOS % 3.8 % (0.0-3.0); HEMATOCRIT 30.8 % (42.0-52.0); HEMOGLOBIN 10.3 g/dl (13.5-17.5); LYMPH # 2.2 10^3/uL (1.5-5.0); LYMPH % 26.1 % (24.0-44.0); MEAN CORPUSCULAR HEMOGLOBIN 33.2 pg (27.0-33.0); MEAN CORPUSCULAR HGB CONC 33.4 g/dl (32.0-36.5); MEAN CORPUSCULAR VOLUME 99.4 fl (80.0-96.0); MONO # 1.1 10^3/uL (0.0-0.8); MONO % 13.3 % (2.0-8.0); NEUTROPHILS # 4.6 10^3/uL (1.5-8.5); NEUTROPHILS % 55.4 % (36.0-66.0); PLATELET COUNT, AUTOMATED 256 10^3/uL (150-450); WHITE BLOOD COUNT 8.4 10^3/uL (4.0-10.0)
[2024-08-31 22:19] LABS: INR 1.48; PARTIAL THROMBOPLASTIN TIME 34.9 SECONDS (24.8-34.2); PROTHROMBIN TIME 18.2 SECONDS (12.5-14.5)
[2024-08-31 22:35] LABS: CK-MB VALUE MASS 2.2 NG/ML (<3.6)
[2024-08-31 22:37] LABS: ALBUMIN 3.7 G/DL (3.2-5.2); BILIRUBIN,DIRECT 0.2 MG/DL (<0.4); BILIRUBIN,TOTAL 0.6 MG/DL (0.3-1.2); CALCIUM LEVEL 9.1 MG/DL (8.3-10.6); CREATININE FOR GFR 1.63 MG/DL (0.70-1.30); GLOMERULAR FILTRATION RATE 43.2 (>35); POTASSIUM SERUM 4.7 MMOL/L (3.5-5.1); TOTAL PROTEIN 6.8 G/DL (5.7-8.2)
[2024-08-31 22:39] LABS: MB/CK RELATIVE INDEX 1.61 (< OR =4)
[2024-08-31] MEDS: KETOROLAC 30 MG/ML 1ML VIAL IV ONE (22:49)
[2024-08-31 23:26] LABS: CK-MB VALUE MASS 2.5 NG/ML (<3.6)
[2024-08-31 23:27] LABS: MB/CK RELATIVE INDEX 1.98 (< OR =4)
[2024-09-01] MEDS ORDERED: ISOVUE-370 76% 100ML VIAL As Ordered ONE (00:15)
[2024-09-01] MEDS: ONDANSETRON 4MG 2ML VIAL IV ONE (00:37)
[2024-09-01] MEDS: MORPHINE 2 MG/ML 1ML VIAL IV PRN (00:37)
[2024-09-01] MEDS ORDERED: DEXTROSE 50% 50ML SYRINGE IV PRN (03:45)
[2024-09-01] MEDS ORDERED: GLUCAGON INJ 1MG VIAL SC PRN (03:45)
[2024-09-01] MEDS ORDERED: GLUCOSE 4 GM CHEW PO PRN (03:45)
[2024-09-01] MEDS ORDERED: INSULIN LISPRO (NovoLOG) PER UNIT SC SCH ×2 (07:30→21:00)
[2024-09-01] MEDS: DIGOXIN 0.0625MG PER 1/2TABLET PO SCH (09:00)
[2024-09-01] MEDS ORDERED: LANO62.5 PO (13:24)
[2024-09-01] MEDS ORDERED: IRBE75TA11 PO (13:24)
[2024-09-01] MEDS ORDERED: HYDR50TA47 PO (13:24)
[2024-09-01] MEDS ORDERED: MYRB50TA PO (13:24)
[2024-09-01] MEDS ORDERED: FURO80TA2 PO (13:24)
[2024-09-01] MEDS ORDERED: AMLO25TA PO (13:24)
[2024-09-01] MEDS ORDERED: AVOD0.5C PO (13:24)
[2024-09-01] MEDS ORDERED: HOME MED LIST COMPLETE! XX SCH (13:25)
[2024-09-01] MEDS ORDERED: ULTRACET TAB PO PRN (14:10)
[2024-09-01] MEDS: ACETAMINOPHEN 500 MG TAB PO PRN (14:21)
[2024-09-01] MEDS: DUTASTERIDE 0.5 MG CAP (AVODART) PO SCH (16:18)
[2024-09-01] MEDS: **hydrALAZINE** 50 MG TAB PO SCH (16:18)
[2024-09-01 17:35] VITALS: BP 136/68; TEMP 97.3; O2SAT 93
[2024-09-01 19:38] VITALS: BP 134/70; TEMP 98; O2SAT 95
[2024-09-01] MEDS: APIXABAN 2.5 MG TAB (ELIQUIS) PO SCH (20:09)
[2024-09-01] MEDS: MAGNESIUM OXIDE 400MG TAB (MAG-OX) PO SCH (20:09)
[2024-09-01] MEDS: ULTRACET TAB PO PRN (20:10)
[2024-09-01] MEDS ORDERED: APIXABAN 2.5 MG TAB (ELIQUIS) PO SCH (21:00)
[2024-09-02 03:14] VITALS: BP 157/69; TEMP 97.8; O2SAT 93
[2024-09-02 06:23] LABS: HEMATOCRIT 28.6 % (42.0-52.0); HEMOGLOBIN 9.1 g/dl (13.5-17.5); MEAN CORPUSCULAR HEMOGLOBIN 32.2 pg (27.0-33.0); MEAN CORPUSCULAR HGB CONC 31.8 g/dl (32.0-36.5); MEAN CORPUSCULAR VOLUME 101.1 fl (80.0-96.0); PLATELET COUNT, AUTOMATED 199 10^3/uL (150-450); RED BLOOD COUNT 2.83 10^6/uL (4.30-6.10); WHITE BLOOD COUNT 7.6 10^3/uL (4.0-10.0)
[2024-09-02 06:47] LABS: CALCIUM LEVEL 8.6 MG/DL (8.3-10.6); CREATININE FOR GFR 1.84 MG/DL (0.70-1.30); GLOMERULAR FILTRATION RATE 37.6 (>35); MAGNESIUM LEVEL 2.5 MG/DL (1.8-2.4); POTASSIUM SERUM 4.1 MMOL/L (3.5-5.1)
[2024-09-02 08:00] VITALS: BP 140/60; TEMP 98.4; O2SAT 93
[2024-09-02] MEDS: FUROSEMIDE 40MG/4ML VIAL IV SCH (10:19)
[2024-09-02] MEDS: FLUTICASONE PROP 0.05% NASAL SPRAY 16 GM (FLONASE) SCH (10:19)
[2024-09-02] MEDS: OMEGA-3 1000MG CAPSULE PO SCH (10:20)
[2024-09-02] MEDS: MULTIVITAMINS/MINERALS THERAP 1 TAB PO SCH (10:20)
[2024-09-02] MEDS: SITagliptin 50 MG TAB (JANUVIA) PO SCH (10:20)
[2024-09-02] MEDS: PREVNAR-20 VACCINE 0.5ML SYRINGE IM.IMMUN ONE (14:50)
[2024-09-02 16:00] VITALS: BP 163/72; TEMP 98.2; O2SAT 95
[2024-09-02] MEDS: INSULIN LISPRO (NovoLOG) PER UNIT SC SCH (17:22)
[2024-09-02 19:56] VITALS: BP 174/72; TEMP 98.4; O2SAT 97
[2024-09-03 03:17] VITALS: BP 131/63; TEMP 97.3
[2024-09-03] MEDS: KETOROLAC 30 MG/ML 1ML VIAL IV ONE (05:57)
[2024-09-03 06:53] LABS: HEMATOCRIT 29.2 % (42.0-52.0); HEMOGLOBIN 9.3 g/dl (13.5-17.5); MEAN CORPUSCULAR HEMOGLOBIN 32.5 pg (27.0-33.0); MEAN CORPUSCULAR HGB CONC 31.8 g/dl (32.0-36.5); MEAN CORPUSCULAR VOLUME 102.1 fl (80.0-96.0); PLATELET COUNT, AUTOMATED 197 10^3/uL (150-450); RED BLOOD COUNT 2.86 10^6/uL (4.30-6.10); WHITE BLOOD COUNT 6.9 10^3/uL (4.0-10.0)
[2024-09-03 07:34] LABS: ALBUMIN 3.2 G/DL (3.2-5.2); BILIRUBIN,TOTAL 0.9 MG/DL (0.3-1.2); CALCIUM LEVEL 8.6 MG/DL (8.3-10.6); CREATININE FOR GFR 1.69 MG/DL (0.70-1.30); GLOMERULAR FILTRATION RATE 41.5 (>35); POTASSIUM SERUM 4.2 MMOL/L (3.5-5.1); TOTAL PROTEIN 6.1 G/DL (5.7-8.2)
[2024-09-03 07:52] VITALS: BP 142/68; TEMP 97.6; O2SAT 96
[2024-09-03] MEDS ORDERED: FUROSEMIDE 80 MG TAB PO SCH (09:00)
[2024-09-03] MEDS: CYCLOBENZAPRINE 5MG TABLET PO PRN (09:38)
[2024-09-03] MEDS: FUROSEMIDE 100MG/10ML VIAL IV SCH (09:41)
[2024-09-03] MEDS: metOLazone 5 MG TAB PO ONE (09:41)
[2024-09-03] MEDS: MOM 30ML SUSPENSION UDC PO PRN (13:05)
[2024-09-03 15:12] VITALS: BP 152/73; TEMP 97.4; O2SAT 94
[2024-09-03] MEDS: FUROSEMIDE 40MG/4ML VIAL IV SCH (15:53)
[2024-09-03 19:34] VITALS: BP 171/82; TEMP 98.5; O2SAT 95
[2024-09-03 19:40] VITALS: BP 140/67; TEMP 96.6; O2SAT 92
[2024-09-03] MEDS: SENNA 8.6 MG TAB (SENOKOT) PO SCH (21:35)
[2024-09-03] MEDS: DOCUSATE SODIUM 100MG CAPSULE PO SCH (21:36)
[2024-09-03] MEDS: ACETAMINOPHEN *IV* 1,000 MG in IV 1 EA IV ONE (23:36)
[2024-09-04] VITALS (7 sets, daily range): BP systolic 115–190; BP diastolic 59–91; TEMP 98.4–102.8; O2SAT 90–98
[2024-09-04] MEDS: MORPHINE 2 MG/ML 1ML VIAL IV ONE (01:46)
[2024-09-04 06:57] LABS: HEMATOCRIT 29.1 % (42.0-52.0); HEMOGLOBIN 9.7 g/dl (13.5-17.5); MEAN CORPUSCULAR HEMOGLOBIN 32.9 pg (27.0-33.0); MEAN CORPUSCULAR HGB CONC 33.3 g/dl (32.0-36.5); MEAN CORPUSCULAR VOLUME 98.6 fl (80.0-96.0); PLATELET COUNT, AUTOMATED 231 10^3/uL (150-450); RED BLOOD COUNT 2.95 10^6/uL (4.30-6.10)
[2024-09-04 07:36] LABS: ALBUMIN 3.5 G/DL (3.2-5.2); BILIRUBIN,TOTAL 1.3 MG/DL (0.3-1.2); CREATININE FOR GFR 1.66 MG/DL (0.70-1.30); GLOMERULAR FILTRATION RATE 42.3 (>35); POTASSIUM SERUM 4.1 MMOL/L (3.5-5.1); TOTAL PROTEIN 6.5 G/DL (5.7-8.2)
[2024-09-04] MEDS: QUEtiapine FUMARATE 25 MG TAB PO SCH (13:38)
[2024-09-04 17:38] LABS: ABG BASE EXCESS 0.3 (-2.0-2.0); ABG HCO3 21.9 MMOL/L (22.0-26.0); ABG O2 SATURATION 95.5 % (95.0-99.0); ABG PARTIAL PRESSURE CO2 25.7 mmHg (35.0-45.0); ABG PARTIAL PRESSURE O2 78.3 mmHg (75.0-100.0); ABG STANDARD HCO3 24.8 MMOL/L. (22.0-26.0); ABG TOTAL CO2 22.7 MMOL/L (23.0-31.0); ABG pH (ARTERIAL) 7.548 UNITS (7.350-7.450)
[2024-09-04] MEDS: ACETAMINOPHEN 650MG SUPP PR PRN (17:50)
[2024-09-04] MEDS: dexAMETHasone 20MG/5ML VIAL IV ONE (17:51)
[2024-09-04 18:25] LABS: BASO # 0.1 10^3/uL (0.0-0.2); BASO % 0.6 % (0.0-1.0); EOS % 0.3 % (0.0-3.0); HEMATOCRIT 27.9 % (42.0-52.0); HEMOGLOBIN 9.4 g/dl (13.5-17.5); LYMPH # 1.9 10^3/uL (1.5-5.0); LYMPH % 22.2 % (24.0-44.0); MEAN CORPUSCULAR HEMOGLOBIN 32.9 pg (27.0-33.0); MEAN CORPUSCULAR HGB CONC 33.7 g/dl (32.0-36.5); MEAN CORPUSCULAR VOLUME 97.6 fl (80.0-96.0); MONO # 1.3 10^3/uL (0.0-0.8); MONO % 14.7 % (2.0-8.0); NEUTROPHILS # 5.4 10^3/uL (1.5-8.5); NEUTROPHILS % 61.7 % (36.0-66.0); PLATELET COUNT, AUTOMATED 223 10^3/uL (150-450); RED BLOOD COUNT 2.86 10^6/uL (4.30-6.10); WHITE BLOOD COUNT 8.7 10^3/uL (4.0-10.0)
[2024-09-04 18:47] LABS: ALBUMIN 3.2 G/DL (3.2-5.2); BILIRUBIN,TOTAL 1.3 MG/DL (0.3-1.2); CALCIUM LEVEL 9.1 MG/DL (8.3-10.6); CREATININE FOR GFR 1.56 MG/DL (0.70-1.30); GLOMERULAR FILTRATION RATE 45.5 (>35); POTASSIUM SERUM 3.8 MMOL/L (3.5-5.1); TOTAL PROTEIN 6.6 G/DL (5.7-8.2)
[2024-09-04 18:48] LABS: C REACTIVE PROTEIN QUANTITATIV 4.8 MG/DL (<1.0)
[2024-09-04] MEDS: cefTRIAXone SOD 2 GM in DEXTROSE 5% (D5W) ADV/MINI-BAG 50 ML IV SCH (19:30)
[2024-09-04] MEDS: ASPIRIN 81MG ENTERIC TABLET PO SCH (21:00)
[2024-09-04] MEDS: D5W IV SCH (22:10)
[2024-09-04] MEDS: ACYCLOVIR SODIUM IV SCH (22:10)
[2024-09-04] MEDS: VANCOMYCIN HCL 1,500 MG, VIAL MATE ADAPTER 1 EACH in NS 500 ML IV ONE (22:12)
[2024-09-05] VITALS (10 sets, daily range): BP systolic 111–162; BP diastolic 55–82; TEMP 97–100.1; O2SAT 95–98
[2024-09-05] MEDS: KCL 10MEQ/100ML SWI (KRUN) 10 MEQ in IV 1 EA IV SCH (03:16)
[2024-09-05 06:32] LABS: HEMATOCRIT 24.8 % (42.0-52.0); HEMOGLOBIN 8.5 g/dl (13.5-17.5); MEAN CORPUSCULAR HEMOGLOBIN 33.3 pg (27.0-33.0); MEAN CORPUSCULAR HGB CONC 34.3 g/dl (32.0-36.5); MEAN CORPUSCULAR VOLUME 97.3 fl (80.0-96.0); PLATELET COUNT, AUTOMATED 197 10^3/uL (150-450); RED BLOOD COUNT 2.55 10^6/uL (4.30-6.10); WHITE BLOOD COUNT 6.1 10^3/uL (4.0-10.0)
[2024-09-05] MEDS: VANCOMYCIN/WATER FOR INJ 1,000 MG in IV 1 EA IV SCH (06:44)
[2024-09-05 06:53] LABS: ALBUMIN 2.7 G/DL (3.2-5.2); BILIRUBIN,TOTAL 0.9 MG/DL (0.3-1.2); CALCIUM LEVEL 8.4 MG/DL (8.3-10.6); CREATININE FOR GFR 1.53 MG/DL (0.70-1.30); GLOMERULAR FILTRATION RATE 46.5 (>35); POTASSIUM SERUM 3.9 MMOL/L (3.5-5.1); TOTAL PROTEIN 5.6 G/DL (5.7-8.2)
[2024-09-05] MEDS: ENOXAPARIN 80MG/0.8ML SYRINGE (J1650 PER 10MG) SC SCH (08:59)
[2024-09-05] MEDS ORDERED: ASPIRIN 81MG ENTERIC TABLET PO SCH (09:00)
[2024-09-05] MEDS: ACYCLOVIR SODIUM IV SCH (12:55)
[2024-09-05] MEDS: D5W IV SCH (12:55)
[2024-09-05] MEDS: ALBUTEROL SULFATE 2.5MG/0.5ML INH NEB SOLN NEB SCH (16:00)
[2024-09-05] MEDS ORDERED: VANCOMYCIN HCL 750 MG, VIAL MATE ADAPTER 1 EACH in NS 250 ML IV SCH (20:00)
[2024-09-06] MEDS: ALBUTEROL 90 MCG/ACT 8GM HFA INHALER INH SCH
[2024-09-06] MEDS: MORPHINE 2 MG/ML 1ML VIAL IV ONE ×2 (02:35→23:48)
[2024-09-06 03:37] VITALS: BP 135/71; TEMP 98.4; O2SAT 96
[2024-09-06 06:21] LABS: HEMATOCRIT 23.2 % (42.0-52.0); MEAN CORPUSCULAR HEMOGLOBIN 33.2 pg (27.0-33.0); MEAN CORPUSCULAR HGB CONC 34.5 g/dl (32.0-36.5); MEAN CORPUSCULAR VOLUME 96.3 fl (80.0-96.0); PLATELET COUNT, AUTOMATED 209 10^3/uL (150-450); RED BLOOD COUNT 2.41 10^6/uL (4.30-6.10); WHITE BLOOD COUNT 9.3 10^3/uL (4.0-10.0)
[2024-09-06 07:19] LABS: ALBUMIN 2.6 G/DL (3.2-5.2); BILIRUBIN,TOTAL 0.7 MG/DL (0.3-1.2); CALCIUM LEVEL 8.4 MG/DL (8.3-10.6); CHOLESTEROL RISK RATIO 4.7 (<5); CREATININE FOR GFR 1.74 MG/DL (0.70-1.30); GLOMERULAR FILTRATION RATE 40.1 (>35); HDL CHOLESTEROL 20.2 MG/DL (>40); LDL CHOLESTEROL 62.6 MG/DL (<100); NON-HDL-C 74.8 MG/DL; POTASSIUM SERUM 3.3 MMOL/L (3.5-5.1); TOTAL PROTEIN 5.4 G/DL (5.7-8.2)
[2024-09-06 07:50] VITALS: BP 129/59; TEMP 98.5; O2SAT 94
[2024-09-06] MEDS: DICLOFENAC EPOLAMINE 1.3% PATCH TOP SCH (09:21)
[2024-09-06] MEDS: LIDOCAINE 5% (LIDODERM) PATCH TD SCH (09:21)
[2024-09-06] MEDS: KCL 10MEQ/100ML SWI (KRUN) 10 MEQ in IV 1 EA IV SCH (11:21)
[2024-09-06] MEDS: POTASSIUM CHLORIDE 10% LIQ 20MEQ/15ML UDC PO SCH (11:22)
[2024-09-06 11:50] VITALS: BP 134/59; TEMP 97.2; O2SAT 98
[2024-09-06 16:37] VITALS: BP 170/72; TEMP 98; O2SAT 99
[2024-09-06 20:46] VITALS: BP 136/60; TEMP 97; O2SAT 97
[2024-09-06] MEDS: QUEtiapine FUMARATE 25 MG TAB PO SCH (20:58)
[2024-09-06] MEDS: ATORVASTATIN 20 MG TAB PO SCH (20:58)
[2024-09-06 23:43] VITALS: BP 149/64; TEMP 98.8; O2SAT 93
[2024-09-07] VITALS (8 sets, daily range): BP systolic 139–174; BP diastolic 65–86; TEMP 97.2–99.1; O2SAT 90–99
[2024-09-07 05:35] LABS: HEMATOCRIT 22.7 % (42.0-52.0); HEMOGLOBIN 7.4 g/dl (13.5-17.5); MEAN CORPUSCULAR HGB CONC 32.6 g/dl (32.0-36.5); MEAN CORPUSCULAR VOLUME 98.3 fl (80.0-96.0); PLATELET COUNT, AUTOMATED 202 10^3/uL (150-450); RED BLOOD COUNT 2.31 10^6/uL (4.30-6.10); WHITE BLOOD COUNT 7.4 10^3/uL (4.0-10.0)
[2024-09-07 11:18] LABS: ALBUMIN 2.5 G/DL (3.2-5.2); BILIRUBIN,TOTAL 0.7 MG/DL (0.3-1.2); CALCIUM LEVEL 8.3 MG/DL (8.3-10.6); CREATININE FOR GFR 1.47 MG/DL (0.70-1.30); GLOMERULAR FILTRATION RATE 48.7 (>35); TOTAL PROTEIN 5.1 G/DL (5.7-8.2)
[2024-09-07] MEDS: GABAPENTIN 100 MG CAP PO SCH ×2 (13:01→18:33)
[2024-09-07 16:01] LABS: MAGNESIUM LEVEL 1.9 MG/DL (1.8-2.4)
[2024-09-07] MEDS: HYDROmorphone 2 MG TAB PO PRN (16:41)
[2024-09-07 17:42] LABS: ALBUMIN 2.7 G/DL (3.2-5.2); BILIRUBIN,TOTAL 0.9 MG/DL (0.3-1.2); CALCIUM LEVEL 8.6 MG/DL (8.3-10.6); CREATININE FOR GFR 1.32 MG/DL (0.70-1.30); GLOMERULAR FILTRATION RATE 55.1 (>35); MAGNESIUM LEVEL 1.8 MG/DL (1.8-2.4); POTASSIUM SERUM 3.7 MMOL/L (3.5-5.1); TOTAL PROTEIN 5.7 G/DL (5.7-8.2)
[2024-09-07] MEDS ORDERED: MAGNESIUM SULFATE IN WATER 2 GM in IV 1 EA IV STA (20:14)
[2024-09-07] MEDS: MAG SULF 1GM/100ML (MAG RUN) IV SCH (21:33)
[2024-09-07] MEDS: CARVedilol 3.125 MG TAB PO SCH (21:35)
[2024-09-08 04:00] VITALS: BP 160/67; TEMP 98.5; O2SAT 98
[2024-09-08 08:00] VITALS: BP 130/82; TEMP 97.9; O2SAT 96
[2024-09-08 11:17] LABS: CALCIUM LEVEL 8.2 MG/DL (8.3-10.6); CREATININE FOR GFR 1.25 MG/DL (0.70-1.30); GLOMERULAR FILTRATION RATE 58.7 (>35); MAGNESIUM LEVEL 1.9 MG/DL (1.8-2.4); POTASSIUM SERUM 3.9 MMOL/L (3.5-5.1)
[2024-09-08 15:46] VITALS: BP 154/95; TEMP 97; O2SAT 96
[2024-09-08] MEDS: TORSEMIDE 20 MG TAB PO SCH (15:48)
[2024-09-08 19:23] VITALS: BP 151/81; TEMP 98.5; O2SAT 97
[2024-09-08 23:45] VITALS: BP_SYST 148; BP_SYST 171; BP_DIAS 54; BP_DIAS 69; TEMP 98.3; O2SAT 99
[2024-09-09] VITALS (17 sets, daily range): BP systolic 132–163; BP diastolic 60–79; TEMP 97.9–99; O2SAT 94–99
[2024-09-09 08:03] LABS: CALCIUM LEVEL 8.1 MG/DL (8.3-10.6); CREATININE FOR GFR 1.36 MG/DL (0.70-1.30); GLOMERULAR FILTRATION RATE 53.3 (>35); MAGNESIUM LEVEL 1.6 MG/DL (1.8-2.4); PHOSPHORUS LEVEL 3.4 MG/DL (2.4-5.1); POTASSIUM SERUM 3.7 MMOL/L (3.5-5.1)
[2024-09-09] MEDS: MAG SULF 1GM/100ML (MAG RUN) 1 GM in IV 1 EA IV SCH (09:07)
[2024-09-09 22:51] LABS: HSV SOURCE Serum; HSV-1 DNA Not Detected (Not Detected); HSV-2 DNA Not Detected (Not Detected)
[2024-09-10 06:27] LABS: HEMATOCRIT 24.6 % (42.0-52.0); HEMOGLOBIN 7.9 g/dl (13.5-17.5); MEAN CORPUSCULAR HGB CONC 32.1 g/dl (32.0-36.5); MEAN CORPUSCULAR VOLUME 99.6 fl (80.0-96.0); PLATELET COUNT, AUTOMATED 277 10^3/uL (150-450); RED BLOOD COUNT 2.47 10^6/uL (4.30-6.10); WHITE BLOOD COUNT 9.3 10^3/uL (4.0-10.0)
[2024-09-10 06:45] LABS: CALCIUM LEVEL 8.2 MG/DL (8.3-10.6); CREATININE FOR GFR 1.37 MG/DL (0.70-1.30); GLOMERULAR FILTRATION RATE 52.8 (>35); MAGNESIUM LEVEL 1.8 MG/DL (1.8-2.4); PHOSPHORUS LEVEL 3.3 MG/DL (2.4-5.1); POTASSIUM SERUM 3.7 MMOL/L (3.5-5.1)
[2024-09-10 07:55] VITALS: BP 143/65; TEMP 98.2; O2SAT 95
[2024-09-10 19:26] VITALS: BP 147/65; TEMP 99.2; O2SAT 97
[2024-09-10 20:36] VITALS: BP 147/65
[2024-09-11 06:34] LABS: CALCIUM LEVEL 7.9 MG/DL (8.3-10.6); CREATININE FOR GFR 1.45 MG/DL (0.70-1.30); GLOMERULAR FILTRATION RATE 49.5 (>35); MAGNESIUM LEVEL 1.5 MG/DL (1.8-2.4); PHOSPHORUS LEVEL 3.7 MG/DL (2.4-5.1); POTASSIUM SERUM 3.7 MMOL/L (3.5-5.1)
[2024-09-11 08:44] VITALS: BP 140/62; TEMP 99; O2SAT 97
[2024-09-11] MEDS ORDERED: ATOR1TAB21 PO (09:08)
[2024-09-11] MEDS ORDERED: CARV3.12 PO (09:08)
[2024-09-11] MEDS ORDERED: VENTAER INH (09:08)
[2024-09-11] MEDS ORDERED: TORS20TA2 PO (09:08)
[2024-09-11 10:00] VITALS: BP 157/71
[2024-09-11 10:54] VITALS: BP 123/63
== END 2024-09-11 11:19 | DRG 64 ==
LOC: M ED 20:39 → EDBD 20:39 → M ED INP 09-01 15:18 → M PCU 09-01 17:37
PROVIDERS: ADMIT Family Medicine; ATTEND Family Medicine
PROC: 3E0333Z Introduction of Anti-inflammatory into Peripheral Vein, Percutaneous Approach (ICD-10-PCS; principal; 2024-09-04)
PROC: B246ZZZ Ultrasonography of Right and Left Heart (ICD-10-PCS; 2024-09-09)
DX: I63.9 Cerebral infarction, unspecified (principal); I50.33 Acute on chronic diastolic (congestive) heart failure; U07.1 COVID-19; I21.A1 Myocardial infarction type 2; I13.0 Hypertensive heart and chronic kidney disease with heart failure and stage 1 through stage 4 chronic kidney disease, or unspecified chronic kidney disease; G93.40 Encephalopathy, unspecified; I25.10 Atherosclerotic heart disease of native coronary artery without angina pectoris; I48.91 Unspecified atrial fibrillation; M19.90 Unspecified osteoarthritis, unspecified site; W01.0XXA Fall on same level from slipping, tripping and stumbling without subsequent striking against object, initial encounter; Y92.002 Bathroom of unspecified non-institutional (private) residence as the place of occurrence of the external cause; E11.42 Type 2 diabetes mellitus with diabetic polyneuropathy; E11.22 Type 2 diabetes mellitus with diabetic chronic kidney disease; N18.30 Chronic kidney disease, stage 3 unspecified; M10.9 Gout, unspecified; E78.5 Hyperlipidemia, unspecified; N40.0 Benign prostatic hyperplasia without lower urinary tract symptoms; R29.6 Repeated falls; Z79.01 Long term (current) use of anticoagulants; Z79.899 Other long term (current) drug therapy; Z88.8 Allergy status to other drugs, medicaments and biological substances; I27.20 Pulmonary hypertension, unspecified; I08.3 Combined rheumatic disorders of mitral, aortic and tricuspid valves; M25.551 Pain in right hip; R00.1 Bradycardia, unspecified; I27.81 Cor pulmonale (chronic); I49.3 Ventricular premature depolarization

== ENCOUNTER → 2024-09-14 | Outpatient (REF) ==
[~2024-09-14] MED LIST changes: +AMLO25TA PO; +ATOR1TAB21 PO; +AVOD0.5C PO; +CARV3.12 PO; +HYDR50TA47 PO; +IRBE75TA11 PO; +LANO62.5 PO; +MYRB50TA PO; +TORS20TA2 PO; +VENTAER INH
== END ==
PROVIDERS: ATTEND Internal Medicine
DX: Z02.2 Encounter for examination for admission to residential institution (principal); Z53.9 Procedure and treatment not carried out, unspecified reason

== ENCOUNTER → 2024-10-08 | Outpatient (REF) | payer BC, MEDICARE ==
[2024-10-08 12:02] LABS: HEMATOCRIT 31.3 % (42.0-52.0); MEAN CORPUSCULAR HEMOGLOBIN 31.5 pg (27.0-33.0); MEAN CORPUSCULAR HGB CONC 31.9 g/dl (32.0-36.5); MEAN CORPUSCULAR VOLUME 98.7 fl (80.0-96.0); PLATELET COUNT, AUTOMATED 264 10^3/uL (150-450); RED BLOOD COUNT 3.17 10^6/uL (4.30-6.10); WHITE BLOOD COUNT 12.5 10^3/uL (4.0-10.0)
[2024-10-08 12:09] LABS: ERYTHROCYTE SEDIMENTATION RATE 23 mm/hr (0-20)
[2024-10-08 13:33] LABS: C REACTIVE PROTEIN QUANTITATIV 1.85 MG/DL (<1.0); CALCIUM LEVEL 8.8 MG/DL (8.3-10.6); CREATININE FOR GFR 1.55 MG/DL (0.70-1.30); GLOMERULAR FILTRATION RATE 45.8 (>35); POTASSIUM SERUM 3.6 MMOL/L (3.5-5.1)
== END ==
PROVIDERS: ATTEND Internal Medicine
DX: M79.89 Other specified soft tissue disorders (principal); M10.9 Gout, unspecified

== ENCOUNTER → 2024-10-08 | Outpatient (REF) ==
[2024-10-08 12:55] LABS: HEMOGLOBIN A1c 6.4 % (4.0-6.0)
== END ==
PROVIDERS: ATTEND Internal Medicine
DX: E11.9 Type 2 diabetes mellitus without complications (principal)

== ENCOUNTER → 2024-10-12 | Outpatient (REF) | payer BC, MEDICARE | PROVIDERS: ATTEND Internal Medicine | DX: M10.9 Gout, unspecified (principal) ==

== ENCOUNTER → 2024-10-29 | Outpatient (REF) ==
[2024-10-29 08:30] LABS: CREATININE FOR GFR 1.48 MG/DL (0.70-1.30); GLOMERULAR FILTRATION RATE 48.3 (>35); POTASSIUM SERUM 4.2 MMOL/L (3.5-5.1)
== END ==
PROVIDERS: ATTEND Internal Medicine
DX: N18.9 Chronic kidney disease, unspecified (principal)

== ENCOUNTER → 2024-10-31 | Outpatient (REF) ==
[2024-10-31 08:31] LABS: HEMATOCRIT 29.9 % (42.0-52.0); HEMOGLOBIN 9.7 g/dl (13.5-17.5); MEAN CORPUSCULAR HEMOGLOBIN 31.7 pg (27.0-33.0); MEAN CORPUSCULAR HGB CONC 32.4 g/dl (32.0-36.5); MEAN CORPUSCULAR VOLUME 97.7 fl (80.0-96.0); PLATELET COUNT, AUTOMATED 141 10^3/uL (150-450); RED BLOOD COUNT 3.06 10^6/uL (4.30-6.10); WHITE BLOOD COUNT 10.1 10^3/uL (4.0-10.0)
[2024-10-31 09:06] LABS: URIC ACID 4.6 MG/DL (3.7-9.2)
[2024-10-31 09:08] LABS: CALCIUM LEVEL 8.6 MG/DL (8.3-10.6); CREATININE FOR GFR 1.41 MG/DL (0.70-1.30); GLOMERULAR FILTRATION RATE 51.1 (>35); POTASSIUM SERUM 4.1 MMOL/L (3.5-5.1)
[2024-10-31 10:41] LABS: HEMOGLOBIN A1c 8.1 % (4.0-6.0)
== END ==
PROVIDERS: ATTEND Internal Medicine
DX: M10.9 Gout, unspecified (principal)

== ENCOUNTER → 2024-11-07 | Outpatient (REF) ==
[2024-11-07 09:33] LABS: HEMATOCRIT 29.6 % (42.0-52.0); HEMOGLOBIN 9.8 g/dl (13.5-17.5); MEAN CORPUSCULAR HEMOGLOBIN 32.1 pg (27.0-33.0); MEAN CORPUSCULAR HGB CONC 33.1 g/dl (32.0-36.5); PLATELET COUNT, AUTOMATED 153 10^3/uL (150-450); RED BLOOD COUNT 3.05 10^6/uL (4.30-6.10); WHITE BLOOD COUNT 8.8 10^3/uL (4.0-10.0)
[2024-11-07 09:56] LABS: CALCIUM LEVEL 8.5 MG/DL (8.3-10.6); CREATININE FOR GFR 1.41 MG/DL (0.70-1.30); GLOMERULAR FILTRATION RATE 51.1 (>35); POTASSIUM SERUM 4.1 MMOL/L (3.5-5.1)
== END ==
PROVIDERS: ATTEND Internal Medicine
DX: M10.9 Gout, unspecified (principal)

== ENCOUNTER → 2024-11-12 | Outpatient (REF) ==
[2024-11-12 09:28] LABS: HEMATOCRIT 30.1 % (42.0-52.0); HEMOGLOBIN 9.7 g/dl (13.5-17.5); MEAN CORPUSCULAR HEMOGLOBIN 31.5 pg (27.0-33.0); MEAN CORPUSCULAR HGB CONC 32.2 g/dl (32.0-36.5); MEAN CORPUSCULAR VOLUME 97.7 fl (80.0-96.0); PLATELET COUNT, AUTOMATED 206 10^3/uL (150-450); RED BLOOD COUNT 3.08 10^6/uL (4.30-6.10); WHITE BLOOD COUNT 6.7 10^3/uL (4.0-10.0)
[2024-11-12 09:46] LABS: CALCIUM LEVEL 8.4 MG/DL (8.3-10.6); CREATININE FOR GFR 1.65 MG/DL (0.70-1.30); GLOMERULAR FILTRATION RATE 42.6 (>35); POTASSIUM SERUM 3.7 MMOL/L (3.5-5.1)
== END ==
PROVIDERS: ATTEND Internal Medicine
DX: R60.9 Edema, unspecified (principal)

== ENCOUNTER → 2024-11-26 | Outpatient (REF) ==
[2024-11-26 09:17] LABS: HEMATOCRIT 29.9 % (42.0-52.0); HEMOGLOBIN 9.6 g/dl (13.5-17.5); MEAN CORPUSCULAR HEMOGLOBIN 31.5 pg (27.0-33.0); MEAN CORPUSCULAR HGB CONC 32.1 g/dl (32.0-36.5); PLATELET COUNT, AUTOMATED 273 10^3/uL (150-450); RED BLOOD COUNT 3.05 10^6/uL (4.30-6.10); WHITE BLOOD COUNT 7.8 10^3/uL (4.0-10.0)
[2024-11-26 09:26] LABS: CALCIUM LEVEL 8.8 MG/DL (8.3-10.6); CREATININE FOR GFR 1.47 MG/DL (0.70-1.30); GLOMERULAR FILTRATION RATE 48.7 (>35)
== END ==
PROVIDERS: ATTEND Physician Assistant
DX: E11.9 Type 2 diabetes mellitus without complications (principal)

== ENCOUNTER → 2024-11-27 | Outpatient (REF) | payer BC, MEDICARE | LOC: M RAD 13:13 → EDSTATUS 13:45 | PROVIDERS: ATTEND Physician Assistant | DX: R22.42 Localized swelling, mass and lump, left lower limb (principal) ==

== ENCOUNTER → 2024-12-18 | Outpatient (CLI) | payer MEDICARE, BC ==
[2024-12-18 17:42] LABS: BASO # 0.1 10^3/uL (0.0-0.2); EOS # 0.3 10^3/uL (0.0-0.5); EOS % 3.1 % (0.0-3.0); HEMATOCRIT 29.7 % (42.0-52.0); HEMOGLOBIN 9.7 g/dl (13.5-17.5); LYMPH # 2.7 10^3/uL (1.5-5.0); LYMPH % 26.9 % (24.0-44.0); MEAN CORPUSCULAR HEMOGLOBIN 31.1 pg (27.0-33.0); MEAN CORPUSCULAR HGB CONC 32.7 g/dl (32.0-36.5); MEAN CORPUSCULAR VOLUME 95.2 fl (80.0-96.0); MONO # 0.9 10^3/uL (0.0-0.8); MONO % 8.6 % (2.0-8.0); NEUTROPHILS # 6.1 10^3/uL (1.5-8.5); NEUTROPHILS % 59.4 % (36.0-66.0); PLATELET COUNT, AUTOMATED 349 10^3/uL (150-450); RED BLOOD COUNT 3.12 10^6/uL (4.30-6.10); WHITE BLOOD COUNT 10.2 10^3/uL (4.0-10.0)
[2024-12-18 18:11] LABS: URIC ACID 5.8 MG/DL (3.7-9.2)
[2024-12-18 18:14] LABS: ALBUMIN 3.5 G/DL (3.2-5.2); BILIRUBIN,TOTAL 0.5 MG/DL (0.3-1.2); CALCIUM LEVEL 9.6 MG/DL (8.3-10.6); CREATININE FOR GFR 1.36 MG/DL (0.70-1.30); GLOMERULAR FILTRATION RATE 53.3 (>35); PERCENT SATURATION 19.5 % (19.7-50.0); POTASSIUM SERUM 4.2 MMOL/L (3.5-5.1); TOTAL PROTEIN 6.9 G/DL (5.7-8.2)
[2024-12-18 18:19] LABS: FERRITIN 188.4 NG/ML (10.5-307.3)
== END ==
LOC: M PLALAB 15:17
PROVIDERS: ATTEND Student in an Organized Health Care Education/Training Program
DX: D64.9 Anemia, unspecified (principal); N18.32 Chronic kidney disease, stage 3b; E83.42 Hypomagnesemia; M10.9 Gout, unspecified

== ENCOUNTER 2025-04-15 07:45 | Outpatient (CLI) | payer MEDICARE, BC ==
[~2025-04-15] VITALS: Ht 182.9 cm; Wt 90.5 kg
[~2025-04-15 07:45] MED LIST changes: +ALBUTEROL SULFATE 2.5 MG/0.5 ML INH CONCENTRATE NEB SOLN INH PRN; +EPINEPHrine INJ 1 MG/ML 1ML AMP IM PRN; -FLOM0.4C39 PO; +TAMS-18 PO; +diphenhydrAMINE 50 MG/ML VIAL IV PRN
[2025-04-15 08:30] VITALS: BP 177/79; O2SAT 96
[2025-04-15] MEDS: IRON SUCROSE 25 MG in NS 23.75 ML IV ONE (09:05)
[2025-04-15] MEDS: IRON SUCROSE 475 MG in NS 250 ML IV ONE (09:51)
[2025-04-15 10:02] VITALS: BP 156/66; O2SAT 96
[2025-04-15 11:00] VITALS: BP 140/84; O2SAT 96
[2025-04-15 12:00] VITALS: BP 138/88; O2SAT 100
== END 2025-04-15 14:20 | disposition home or self-care (01) ==
LOC: M INFU 07:45
PROVIDERS: ATTEND Student in an Organized Health Care Education/Training Program
DX: D50.9 Iron deficiency anemia, unspecified (principal); Z88.8 Allergy status to other drugs, medicaments and biological substances
CPT/HCPCS: 96365; 96366; J1756

== ENCOUNTER 2025-04-29 08:14 | Outpatient (CLI) | payer MEDICARE, BC ==
[~2025-04-29] VITALS: Ht 182.9 cm; Wt 90.5 kg
[2025-04-29 08:20] VITALS: BP 169/75; O2SAT 98
[2025-04-29] MEDS: IRON SUCROSE 500 MG in NS 250 ML OVER 4 HRS IV ONE (08:50)
[2025-04-29 10:00] VITALS: BP 159/81; O2SAT 100
[2025-04-29 10:54] VITALS: BP 167/77; O2SAT 98
[2025-04-29 12:00] VITALS: BP 166/80; O2SAT 97
== END 2025-04-29 13:40 | disposition home or self-care (01) ==
LOC: M INFU 08:14
PROVIDERS: ATTEND Student in an Organized Health Care Education/Training Program
DX: D50.9 Iron deficiency anemia, unspecified (principal); Z88.8 Allergy status to other drugs, medicaments and biological substances
CPT/HCPCS: 96365; 96366; J1756

== ENCOUNTER → 2025-05-05 | Outpatient (REF) | payer MEDICARE, BC ==
[~2025-05-05] MED LIST changes: -ALBUTEROL SULFATE 2.5 MG/0.5 ML INH CONCENTRATE NEB SOLN INH PRN; -EPINEPHrine INJ 1 MG/ML 1ML AMP IM PRN; -diphenhydrAMINE 50 MG/ML VIAL IV PRN
== END ==
LOC: M SFHCPLAZ 23:07
PROVIDERS: ATTEND Family Medicine
DX: Z53.9 Procedure and treatment not carried out, unspecified reason (principal); D64.9 Anemia, unspecified

== ENCOUNTER → 2025-05-07 | Outpatient (CLI) | payer MEDICARE, BC ==
[2025-05-07 13:54] LABS: PLATELET COUNT, AUTOMATED 253 10^3/uL (150-450)
== END ==
LOC: M PLALAB 11:31
PROVIDERS: ATTEND Family Medicine
DX: D64.9 Anemia, unspecified (principal)

== ENCOUNTER → 2025-05-14 | Outpatient (REF) | payer MEDICARE, BC | LOC: M SFHCPLAZ 10:25 | PROVIDERS: ATTEND Family Medicine | DX: Z53.9 Procedure and treatment not carried out, unspecified reason (principal) ==

== ENCOUNTER → 2025-05-22 | Outpatient (CLI) | payer MEDICARE, BC | LOC: M SLEEP 20:00 | PROVIDERS: ATTEND Physician Assistant | DX: G47.33 Obstructive sleep apnea (adult) (pediatric) (principal) ==

== ENCOUNTER → 2025-05-31 | Outpatient (CLI) | payer MEDICARE, BC | LOC: M EKG 09:49 | PROVIDERS: ATTEND Physician Assistant | DX: I48.91 Unspecified atrial fibrillation (principal) ==

== ENCOUNTER → 2025-06-21 | Outpatient (CLI) | payer MEDICARE, BC | LOC: M RAD 13:17 | PROVIDERS: ATTEND Physician Assistant | DX: I65.23 Occlusion and stenosis of bilateral carotid arteries (principal) ==

== ENCOUNTER → 2025-07-14 | Outpatient (CLI) | payer MEDICARE, BC | LOC: M SLEEP 20:00 | PROVIDERS: ATTEND Physician Assistant | DX: G47.33 Obstructive sleep apnea (adult) (pediatric) (principal) ==

== ENCOUNTER → 2025-08-09 | Outpatient (REF) | payer MEDICARE, BC | LOC: M SFHCPLAZ 10:07 | PROVIDERS: ATTEND Family Medicine | DX: Z53.9 Procedure and treatment not carried out, unspecified reason (principal) ==

== ENCOUNTER → 2025-08-09 | Outpatient (CLI) | payer MEDICARE, BC ==
[2025-08-09 16:08] LABS: ESTIMATED AVERAGE GLUCOSE 151.0 MG/DL (60-110)
[2025-08-09 16:11] LABS: PLATELET COUNT, AUTOMATED 257 10^3/uL (150-450)
== END ==
LOC: M PLALAB 10:23
PROVIDERS: ATTEND Family Medicine
DX: E11.40 Type 2 diabetes mellitus with diabetic neuropathy, unspecified (principal); D50.9 Iron deficiency anemia, unspecified

== ENCOUNTER → 2025-09-06 | Outpatient (CLI) | payer MEDICARE, BC ==
[2025-09-06 18:09] LABS: CALCIUM LEVEL 9.1 MG/DL (8.3-10.6); CARBON DIOXIDE LEVEL 31.0 MMOL/L (20-31); CHLORIDE LEVEL 101.0 MMOL/L (98-107); CREATININE FOR GFR 1.59 MG/DL (0.70-1.30); GLOMERULAR FILTRATION RATE 42.5 (>35); POTASSIUM SERUM 4.5 MMOL/L (3.5-5.1); SODIUM LEVEL 144.0 MMOL/L (136-145)
== END ==
LOC: M PLALAB 13:49
PROVIDERS: ATTEND Physician Assistant
DX: I65.23 Occlusion and stenosis of bilateral carotid arteries (principal)

== ENCOUNTER → 2025-09-09 | Outpatient (CLI) | payer MEDICARE, BC ==
[~2025-09-09] MED LIST changes: +ISOVUE-370 76% 100 ML VIAL ONE
== END ==
LOC: M PLAIMG 09:17
PROVIDERS: ATTEND Physician Assistant
DX: I65.23 Occlusion and stenosis of bilateral carotid arteries (principal)
CPT/HCPCS: 70498; 71046; Q9967